=== PATIENT | male | born 1985 | race American Indian/Alaskan Native ===

== ENCOUNTER 2016-05-03 17:29 | Emergency (ER) | payer MEDICARE ==
[2016-05-03 17:33] VITALS: BMI 21.9
[2016-05-03 17:35] VITALS: BP 124/83; PULSE 94; RESP 18; TEMP 99.3; O2SAT 95
--- NOTE | 2016-05-03 19:00 | C.PDOC ---
History Of Present Illness 31 y/o male c/o 'having symptoms of a fever', and wants to know if he has a stomach bug. pt tolerated bread today, sts he had a bm today, not watery, and is queasy and last time he vomited was 2 days ago. pt also c/o cough, with sputum color getting edge inker heels over last few days. pt also c/o pain to right great toe, sts he injured it in the past, and stubbed it yesterday wearing karate slippers. pt reluctantly answering questions in history with vague answers. Time Seen by Provider: 05/03/16 18:02 Chief Complaint (Nursing): Cough, Cold, Congestion Past Medical History Reviewed: Historical Data, Nursing Documentation, Vital Signs Vital Signs: Last Vital Signs Temp 99.3 F 05/03/16 17:34 Pulse 94 H 05/03/16 17:34 Resp 18 05/03/16 17:34 BP 124/83 05/03/16 17:34 Pulse Ox 95 05/03/16 19:51 - Medical History PMH: Schizophrenia Denies: Diabetes, Hepatitis, HIV, HTN, Chronic Kidney Disease, Seizures, Sexually Transmitted Disease Surgical History: Appendectomy - [facility] Procedures GROUP PSYCHOTHERAPY (12/06/15) INDIVIDUAL PSYCHOTHERAPY, BEHAVIORAL (12/06/15) TETANUS TOXOID ADMINIST (09/18/14) Family History: States: Unknown Family Hx - Social History Hx Tobacco Use: Yes Hx Alcohol Use: Yes (social drinking) Hx Substance Use: Yes - Immunization History Hx Tetanus Toxoid Vaccination: No Hx Influenza Vaccination: No Hx Pneumococcal Vaccination: No Review Of Systems Constitutional: Positive for: Fever (tactile) ENT: Negative for: Ear Pain, Nose Pain, Throat Pain Cardiovascular: Negative for: Chest Pain, Palpitations Respiratory: Positive for: Cough. Negative for: Shortness of Breath Gastrointestinal: Positive for: Nausea. Negative for: Vomiting, Abdominal Pain Musculoskeletal: Negative for: Neck Pain Skin: Negative for: Rash Neurological: Negative for: Weakness, Numbness Physical Exam - Physical Exam Appears: Non-toxic, No Acute Distress Skin: Normal Color, Warm, Dry Head: Atraumatic, Normacephalic Eye(s): bilateral: Normal Inspection Neck: Normal ROM Chest: Symmetrical, No Deformity, No Tenderness Cardiovascular: Rhythm Regular, No Murmur Respiratory: Normal Breath Sounds, No Rales, No Rhonchi, No Wheezing Gastrointestinal/Abdominal: Normal Exam, Soft, No Tenderness, No Guarding, No Rebound Extremity: Normal ROM, Other (mild right great toe tenderness to palpation, no swelling, erythema noted. +2dp pulse) Neurological/Psych: Oriented x3, Normal Speech, Normal Cognition, Normal Motor, Normal Sensation ED Course And Treatment O2 Sat by Pulse Oximetry: 95 - Radiology CXR: Interpreted by Me, Viewed By Me CXR Interpretation: Yes: No Acute Disease. No: Infiltrates - Other Rad toe Interpretation: no acute fx Progress Note: pt feeling better after motrin and zofran, xrays neg. will d/c with pmd f/u Reevaluation Time: 19:48 Medical Decision Making Medical Decision Makin31 y/o male with queasiness, no vomiting for last 2 days, cough with yellowish sputum., and toe pain, will tx nausea. get cxr and toe xray, give ibuprofen. Disposition Counseled Patient/Family Regarding: Studies Performed, Diagnosis, Need For Followup, Rx Given - Disposition Disposition: HOME/ ROUTINE Disposition Time: 19:48 Condition: GOOD Additional Instructions: Follow up with Dr Toribio in 1-2 days. Eat bland food and take Zofran if queasy. Take ibuprofen for toe pain. Prescriptions: Ibuprofen [Motrin] 600 mg PO TID #30 tab Ondansetron ODT [Zofran ODT] 4 mg PO TID #6 odt Instructions: Upper Respiratory Infection (ED) Forms: General Discharge Instructions - Clinical Impression Clinical Impression: Upper respiratory infection, Injury of toe on right foot
--- NOTE | 2016-05-04 09:03 | RAD ---
HISTORY: cough COMPARISON: No prior. TECHNIQUE: Chest PA and lateral FINDINGS: LUNGS: No active pulmonary disease. PLEURA: No significant pleural effusion identified. No pneumothorax apparent. CARDIOVASCULAR: Normal. OSSEOUS STRUCTURES: No significant abnormalities. VISUALIZED UPPER ABDOMEN: Normal. OTHER FINDINGS: None. IMPRESSION: No active disease.
--- NOTE | 2016-05-04 09:06 | RAD ---
Right foot 1st digit three views History: Pain. Comparison: None available. Findings: Mild hallux valgus deformity. No evidence for acute displaced fracture or dislocation. No discrete radiopaque foreign body. Impression: Negative acute. If pain persists, consider MRI.
== END 2016-05-03 19:53 | disposition home or self-care (01) ==
LOC: C.ER 17:29
DX: J06.9 Acute upper respiratory infection, unspecified (principal); S99.921A Unspecified injury of right foot, initial encounter; W22.8XXA Striking against or struck by other objects, initial encounter

== ENCOUNTER 2016-06-24 01:55 | Emergency (ER) | payer MEDICARE ==
[2016-06-06 02:03] VITALS: BMI 21.9
--- NOTE | 2016-06-24 04:34 | C.PDOC ---
History Of Present Illness 31 y/o male c/o pain to lateral left ankle x 1 day s/p injury during a martial arts class. pt able to bear weight. denies any numbness or tingling. denies any other injury. Time Seen by Provider: 06/24/16 03:22 Chief Complaint (Nursing): Lower Extremity Problem/Injury History Per: Patient History/Exam Limitations: no limitations Onset/Duration Of Symptoms: Days (1) Current Symptoms Are (Timing): Still Present Severity: Moderate Recent travel outside of the [place]: No Past Medical History Reviewed: Historical Data, Nursing Documentation, Vital Signs Vital Signs: Last Vital Signs Temp 98 F 06/24/16 03:26 Pulse 89 06/24/16 03:26 Resp 16 06/24/16 03:26 BP 124/79 06/24/16 03:26 Pulse Ox 98 06/24/16 04:56 - Medical History PMH: Schizophrenia Denies: Diabetes, Hepatitis, HIV, HTN, Chronic Kidney Disease, Seizures, Sexually Transmitted Disease Surgical History: Appendectomy - [facility] Procedures GROUP PSYCHOTHERAPY (12/06/15) INDIVIDUAL PSYCHOTHERAPY, BEHAVIORAL (12/06/15) TETANUS TOXOID ADMINIST (09/18/14) Family History: States: Unknown Family Hx - Social History Hx Tobacco Use: Yes Hx Alcohol Use: Yes (social drinking) Hx Substance Use: Yes - Immunization History Hx Tetanus Toxoid Vaccination: No Hx Influenza Vaccination: No Hx Pneumococcal Vaccination: No Review Of Systems Constitutional: Negative for: Fever, Chills Musculoskeletal: Positive for: Other (ankle pain left) Skin: Negative for: Rash, Bruising Neurological: Negative for: Weakness, Numbness Physical Exam - Physical Exam Appears: Well, No Acute Distress Skin: Warm, Dry Head: Atraumatic, Normacephalic Extremity: Normal ROM, Tenderness (left lateral distal malleolus, no swelling), No Pedal Edema, No Calf Tenderness, Capillary Refill (less than 2 sec), No Swelling Extremity: Bilateral: No Pedal Edema, Normal Color And Temperature, Normal ROM Pulses: Left Dorsalis Pedis: Normal, Right Dorsalis Pedis: Normal Neurological/Psych: Oriented x3, Normal Speech, Normal Cognition, Normal Motor, Normal Sensation ED Course And Treatment O2 Sat by Pulse Oximetry: 98 Medical Decision Making Medical Decision Making: pt with left lateral ankle pain, will get xray ankle and tx pain with ibuprofen. 505 am no fx noted., pt ambulated with no limp. will wrap ankle with bella bandage and d/c Disposition Counseled Patient/Family Regarding: Studies Performed, Diagnosis, Need For Followup - Disposition Referrals: [facility] [Outside] Disposition: HOME/ ROUTINE Disposition Time: 05:06 Condition: GOOD Additional Instructions: Wear bella bandage for comfort during awake hours. Take ibuprofen or Tylenol for pain if needed. Follow up in clinic. Forms: General Discharge Instructions - Clinical Impression Clinical Impression: Left ankle sprain
--- NOTE | 2016-06-24 04:34 | C.PDOC ---
Time Seen by Provider: 06/24/16 03:22 Chief Complaint (Nursing): Lower Extremity Problem/Injury Past Medical History Vital Signs: Last Vital Signs Temp 98 F 06/24/16 03:26 Pulse 89 06/24/16 03:26 Resp 16 06/24/16 03:26 BP 124/79 06/24/16 03:26 Pulse Ox 98 06/24/16 03:26 - Medical History PMH: Schizophrenia Denies: Diabetes, Hepatitis, HIV, HTN, Chronic Kidney Disease, Seizures, Sexually Transmitted Disease Surgical History: Appendectomy - [facility] Procedures GROUP PSYCHOTHERAPY (12/06/15) INDIVIDUAL PSYCHOTHERAPY, BEHAVIORAL (12/06/15) TETANUS TOXOID ADMINIST (09/18/14) Family History: States: Unknown Family Hx - Social History Hx Tobacco Use: Yes Hx Alcohol Use: Yes (social drinking) Hx Substance Use: Yes - Immunization History Hx Tetanus Toxoid Vaccination: No Hx Influenza Vaccination: No Hx Pneumococcal Vaccination: No ED Course And Treatment O2 Sat by Pulse Oximetry: 98
[2016-06-24 04:39] VITALS: RESP 16
[2016-06-24 05:19] VITALS: BP 100/64; PULSE 59; TEMP 97.6; O2SAT 100
--- NOTE | 2016-06-24 09:43 | RAD ---
PROCEDURE: Left Ankle Radiographs. HISTORY: lateral malleolus pain COMPARISON: None FINDINGS: BONES: Normal. No fracture. JOINTS: Normal. No osteoarthritis. Ankle mortise maintained. Talar dome intact SOFT TISSUES: Normal. OTHER FINDINGS: None. IMPRESSION: Normal left ankle radiographs.
== END 2016-06-24 05:19 | disposition home or self-care (01) ==
LOC: C.ER 01:55
DX: S93.402A Sprain of unspecified ligament of left ankle, initial encounter (principal); X50.9XXA Other and unspecified overexertion or strenuous movements or postures, initial encounter; Y93.75 Activity, martial arts; Y92.89 Other specified places as the place of occurrence of the external cause

== ENCOUNTER 2016-07-06 03:30 | Emergency (ER) | payer MEDICARE ==
[2016-07-06 03:32] VITALS: BMI 21.9
--- NOTE | 2016-07-06 03:50 | C.PDOC ---
History Of Present Illness Pt is homeless and has been walking and feels tires and wants a place to rest. Non suicidal or homicidal. No f/c/n/v Time Seen by Provider: 07/06/16 03:50 Chief Complaint (Nursing): Medical Clearance History Per: Patient History/Exam Limitations: no limitations Onset/Duration Of Symptoms: Days Current Symptoms Are (Timing): Still Present Severity: Mild Pain Scale Rating Of: 1 Reports Recently: Seen In ED, Treated By A Physician, Hospitalized Recent travel outside of the [place]: No Additional History Per: Patient Past Medical History Reviewed: Historical Data, Nursing Documentation, Vital Signs Vital Signs: Last Vital Signs Temp 97.7 F 07/06/16 03:43 Pulse 83 07/06/16 03:43 Resp 16 07/06/16 03:43 BP 150/82 07/06/16 03:43 Pulse Ox 97 07/06/16 03:54 - Medical History PMH: Schizophrenia Denies: Diabetes, Hepatitis, HIV, HTN, Chronic Kidney Disease, Seizures, Sexually Transmitted Disease Surgical History: Appendectomy - [facility] Procedures GROUP PSYCHOTHERAPY (12/06/15) INDIVIDUAL PSYCHOTHERAPY, BEHAVIORAL (12/06/15) TETANUS TOXOID ADMINIST (09/18/14) Family History: States: No Known Family Hx - Social History Hx Tobacco Use: Yes Hx Alcohol Use: Yes (social drinking) Hx Substance Use: Yes - Immunization History Hx Tetanus Toxoid Vaccination: No Hx Influenza Vaccination: No Hx Pneumococcal Vaccination: No Review Of Systems Constitutional: Negative for: Fever, Chills Cardiovascular: Negative for: Chest Pain Respiratory: Negative for: Shortness of Breath Gastrointestinal: Negative for: Nausea Genitourinary: Negative for: Dysuria Musculoskeletal: Negative for: Back Pain Skin: Negative for: Jaundice Neurological: Negative for: Weakness Psych: Positive for: Anxiety Physical Exam - Physical Exam Appears: Non-toxic, No Acute Distress Skin: Warm, Dry Head: Normacephalic Eye(s): bilateral: Normal Inspection Oral Mucosa: Moist Neck: Supple Chest: Symmetrical Cardiovascular: Rhythm Regular Respiratory: No Rales, No Rhonchi, No Wheezing Gastrointestinal/Abdominal: Soft, No Tenderness Back: Normal Inspection Extremity: Normal ROM Extremity: Bilateral: No Pedal Edema Neurological/Psych: Oriented x3, Normal Speech, Normal Cognition Gait: Steady ED Course And Treatment O2 Sat by Pulse Oximetry: 97 Pulse Ox Interpretation: Normal ED OBSERVATION Discharge: Yes Date of observation admission: 07/06/16 Time of observation admission: 03:54 - Observation admission statement Patient is being placed in observation because:: homeless - Goals of Observation Goals of observation are:: social service Disposition Counseled Patient/Family Regarding: Studies Performed, Diagnosis - Disposition Disposition: HOME/ ROUTINE Disposition Time: 03:50 Condition: FAIR Instructions: Arthralgia (ED) - Clinical Impression Clinical Impression: Medical assessment
[2016-07-06 06:42] VITALS: BP 149/95; PULSE 82; RESP 18; TEMP 98.5; O2SAT 99
== END 2016-07-06 06:42 | disposition home or self-care (01) ==
LOC: C.ER 03:30
DX: Z00.00 Encounter for general adult medical examination without abnormal findings (principal); Z59.0 Homelessness

== ENCOUNTER 2016-07-30 23:21 | Emergency (ER) | payer MEDICARE ==
[2016-07-30 23:22] VITALS: BMI 21.9
--- NOTE | 2016-07-31 02:34 | C.PDOC ---
History Of Present Illness 31 y/o male with PMHx of schizophrenia presents to ED with complaint of fatigue and "feeling tired, after trekking all over". Patient admits to being homeless. Denies auditory or visual hallucinations. Denies SI/HI. Denies presence of pain. Time Seen by Provider: 07/31/16 01:05 Chief Complaint (Nursing): Medical Clearance History Per: Patient History/Exam Limitations: no limitations Severity: None Pain Scale Rating Of: 0 Recent travel outside of the [place]: No Past Medical History Reviewed: Historical Data, Nursing Documentation, Vital Signs Vital Signs: Last Vital Signs Temp 97.6 F 07/31/16 03:47 Pulse 58 L 07/31/16 03:47 Resp 14 07/31/16 03:47 BP 100/65 07/31/16 03:47 Pulse Ox 100 07/31/16 03:47 - Medical History PMH: Schizophrenia Surgical History: Appendectomy - [facility] Procedures GROUP PSYCHOTHERAPY (12/06/15) INDIVIDUAL PSYCHOTHERAPY, BEHAVIORAL (12/06/15) TETANUS TOXOID ADMINIST (09/18/14) Family History: States: Unknown Family Hx - Social History Hx Tobacco Use: Yes Hx Alcohol Use: Yes (social drinking) Hx Substance Use: Yes - Immunization History Hx Tetanus Toxoid Vaccination: No Hx Influenza Vaccination: No Hx Pneumococcal Vaccination: No Review Of Systems Except As Marked, All Systems Reviewed And Found Negative. Constitutional: Negative for: Fever, Chills Cardiovascular: Negative for: Chest Pain Respiratory: Negative for: Cough, Shortness of Breath, Wheezing Gastrointestinal: Negative for: Nausea, Vomiting, Abdominal Pain Skin: Negative for: Rash Neurological: Negative for: Headache, Dizziness Physical Exam - Physical Exam Appears: Well, Non-toxic, No Acute Distress Skin: Normal Color, Warm, Dry Head: Atraumatic, Normacephalic Eye(s): bilateral: Normal Inspection, EOMI Nose: Normal Chest: Symmetrical Cardiovascular: Rhythm Regular, No Murmur Respiratory: Normal Breath Sounds, No Rales, No Rhonchi, No Wheezing Gastrointestinal/Abdominal: Soft, No Tenderness, No Guarding, No Rebound Back: Normal Inspection Extremity: Normal ROM, Capillary Refill (< 2 sec. ) Neurological/Psych: Oriented x3, Normal Speech, Normal Cognition ED Course And Treatment O2 Sat by Pulse Oximetry: 99 (RA) Pulse Ox Interpretation: Normal Progress Note: Labs ordered and reviewed. ED OBSERVATION Date of observation admission: 07/31/16 Time of observation admission: 02:34 - Progress Note Progress Note: 07/31/16 02:36 patient resting comfortably, in no acute distress Disposition - Disposition Disposition: HOME/ ROUTINE Disposition Time: 05:59 Condition: STABLE Instructions: Fatigue (ED) - Clinical Impression Clinical Impression: Fatigue - PA / FIBER WORKER / Resident Statement MD/DO has reviewed & agrees with the documentation as recorded. - Scribe Statement The provider has reviewed the documentation as recorded by the Scribsylvester Ulloa All medical record entries made by the Lexi were at my direction and personally dictated by me. I have reviewed the chart and agree that the record accurately reflects my personal performance of the history, physical exam, medical decision making, and the department course for this patient. I have also personally directed, reviewed, and agree with the discharge instructions and disposition.
[2016-07-31 03:47] VITALS: TEMP 97.6
[2016-07-31 06:05] VITALS: BP 110/72; PULSE 60; RESP 16; O2SAT 100
== END 2016-07-31 06:18 | disposition home or self-care (01) ==
LOC: C.ER 23:21
DX: R53.83 Other fatigue (principal); Z59.0 Homelessness

== ENCOUNTER 2016-08-12 22:46 | Observation (INO) | payer MEDICARE ==
[2016-08-12 22:46] VITALS: BMI 21.9
--- NOTE | 2016-08-13 00:03 | C.PDOC ---
History Of Present Illness Patient presents to the ER looking for a place to spend the night. Denies any physical complaints at this time. Time Seen by Provider: 08/13/16 00:03 Chief Complaint (Nursing): Headache History Per: Patient History/Exam Limitations: no limitations Onset/Duration Of Symptoms: Hrs Current Symptoms Are (Timing): Still Present Severity: None Pain Scale Rating Of: 0 Preceeding Symptoms: None Recent travel outside of the [place]: No Past Medical History Reviewed: Historical Data, Nursing Documentation, Vital Signs Vital Signs: Last Vital Signs Temp 97.7 F 08/13/16 02:14 Pulse 66 08/13/16 02:14 Resp 14 08/13/16 02:14 BP 114/76 08/13/16 02:14 Pulse Ox 99 08/13/16 02:14 - Medical History PMH: Schizophrenia Denies: Sexually Transmitted Disease Surgical History: Appendectomy - [facility] Procedures GROUP PSYCHOTHERAPY (12/06/15) INDIVIDUAL PSYCHOTHERAPY, BEHAVIORAL (12/06/15) TETANUS TOXOID ADMINIST (09/18/14) Family History: States: No Known Family Hx - Social History Hx Tobacco Use: Yes Hx Alcohol Use: Yes (social drinking) Hx Substance Use: Yes - Immunization History Hx Tetanus Toxoid Vaccination: No Hx Influenza Vaccination: No Hx Pneumococcal Vaccination: No Review Of Systems Constitutional: Negative for: Fever, Chills Gastrointestinal: Negative for: Nausea, Vomiting, Diarrhea Physical Exam - Physical Exam Appears: Non-toxic Skin: Warm, Dry Oral Mucosa: Moist Chest: Symmetrical, No Tenderness Cardiovascular: Rhythm Regular, No Murmur Respiratory: No Rales, No Rhonchi, No Wheezing Gastrointestinal/Abdominal: Soft, No Tenderness Neurological/Psych: Oriented x3 ED Course And Treatment O2 Sat by Pulse Oximetry: 100 (Room air) Pulse Ox Interpretation: Normal ED OBSERVATION Discharge: Yes Date of observation admission: 08/13/16 Time of observation admission: 00:05 - Observation admission statement Patient is being placed in observation because:: Homelessness - Goals of Observation Goals of observation are:: Social service - Progress Note Progress Note: 08/13/16 00:16 no complaints 08/13/16 04:16 vitals stable Disposition Counseled Patient/Family Regarding: Studies Performed, Diagnosis - Disposition Disposition: HOME/ ROUTINE Disposition Time: 00:03 Condition: FAIR - Clinical Impression Clinical Impression: Feeling tired - Scribe Statement The provider has reviewed the documentation as recorded by the Scribe Jonathan Lopez All medical record entries made by the Scribe were at my direction and personally dictated by me. I have reviewed the chart and agree that the record accurately reflects my personal performance of the history, physical exam, medical decision making, and the department course for this patient. I have also personally directed, reviewed, and agree with the discharge instructions and disposition.
[2016-08-13 05:18] VITALS: O2SAT 100
[2016-08-13 05:19] VITALS: BP 123/79; PULSE 71; RESP 16; TEMP 98.2
== END 2016-08-13 05:18 | disposition home or self-care (01) ==
LOC: C.ER 22:46 → C.9OBSV 08-13 00:09
PROVIDERS: ADMIT Emergency Medicine; ATTEND Emergency Medicine
DX: R51 Headache (principal); F20.9 Schizophrenia, unspecified; Z87.891 Personal history of nicotine dependence; Z68.21 Body mass index [BMI] 21.0-21.9, adult

== ENCOUNTER 2016-09-15 00:03 | Emergency (ER) | payer MEDICARE ==
[2016-09-15 00:03] VITALS: BMI 21.9
[2016-09-15 00:13] VITALS: O2SAT 98
--- NOTE | 2016-09-15 00:37 | C.PDOC ---
History Of Present Illness Patient presents to the ER requesting a place to spend the night. Denies physical complaints at this time. Time Seen by Provider: 09/15/16 00:35 Chief Complaint (Nursing): Medical Clearance History Per: Patient History/Exam Limitations: no limitations Onset/Duration Of Symptoms: Hrs Current Symptoms Are (Timing): Still Present Severity: None Pain Scale Rating Of: 0 Recent travel outside of the [place]: No Past Medical History Reviewed: Historical Data, Nursing Documentation, Vital Signs Vital Signs: Last Vital Signs Temp 98 F 09/15/16 05:35 Pulse 72 09/15/16 05:35 Resp 16 09/15/16 05:35 BP 150/82 09/15/16 05:35 Pulse Ox 98 09/15/16 06:53 - Medical History PMH: Schizophrenia Surgical History: Appendectomy - [facility] Procedures GROUP PSYCHOTHERAPY (12/06/15) INDIVIDUAL PSYCHOTHERAPY, BEHAVIORAL (12/06/15) TETANUS TOXOID ADMINIST (09/18/14) Family History: States: No Known Family Hx - Social History Hx Tobacco Use: Yes Hx Alcohol Use: Yes (social drinking) Hx Substance Use: Yes - Immunization History Hx Tetanus Toxoid Vaccination: No Hx Influenza Vaccination: No Hx Pneumococcal Vaccination: No Review Of Systems Constitutional: Negative for: Fever, Chills Gastrointestinal: Negative for: Nausea, Vomiting, Diarrhea Physical Exam - Physical Exam Appears: Non-toxic, No Acute Distress Skin: Warm, Dry Oral Mucosa: Moist Chest: Symmetrical, No Tenderness Cardiovascular: Rhythm Regular Respiratory: No Rales, No Rhonchi, No Wheezing Gastrointestinal/Abdominal: Soft, No Tenderness Neurological/Psych: Oriented x3 ED Course And Treatment O2 Sat by Pulse Oximetry: 98 Pulse Ox Interpretation: Normal Reevaluation Time: 06:53 Reassessment Condition: Improved ED OBSERVATION Discharge: Yes Date of observation admission: 09/15/16 Time of observation admission: 00:37 - Observation admission statement Patient is being placed in observation because:: homeless - Progress Note Progress Note: 09/15/16 00:37 vitals stable 09/15/16 03:52 no complaints Disposition Counseled Patient/Family Regarding: Studies Performed, Diagnosis, Need For Followup - Disposition Referrals: at [facility] [Outside] Disposition: HOME/ ROUTINE Disposition Time: 00:36 Condition: FAIR Instructions: Fatigue (DC) Forms: [employer] (Divehi) - Clinical Impression Clinical Impression: Fatigue - Scribe Statement The provider has reviewed the documentation as recorded by the Scribe Jonathan Lopez All medical record entries made by the Scribe were at my direction and personally dictated by me. I have reviewed the chart and agree that the record accurately reflects my personal performance of the history, physical exam, medical decision making, and the department course for this patient. I have also personally directed, reviewed, and agree with the discharge instructions and disposition.
[2016-09-15 05:43] VITALS: BP 150/82; PULSE 72; RESP 16; TEMP 98
== END 2016-09-15 05:35 | disposition home or self-care (01) ==
LOC: C.ER 00:03
DX: R53.83 Other fatigue (principal)

== ENCOUNTER 2016-10-09 00:42 | Emergency (ER) | payer MEDICAID, MEDICARE, OTHER ==
[2016-10-09 00:42] VITALS: BMI 21.9
[2016-10-09 00:50] VITALS: O2SAT 97
--- NOTE | 2016-10-09 01:51 | C.PDOC ---
History Of Present Illness 31 year old male who presents to the ER requesting a place to sleep. Patient is known to be homeless and has been seen in the ER multiple times for the same reason. No injuries noted at this time. Time Seen by Provider: 10/09/16 01:33 Chief Complaint (Nursing): Medical Clearance History Per: Patient History/Exam Limitations: no limitations Onset/Duration Of Symptoms: Days Current Symptoms Are (Timing): Still Present Recent travel outside of the [place]: No Past Medical History Reviewed: Historical Data, Nursing Documentation, Vital Signs Vital Signs: Last Vital Signs Temp 98.1 F 10/09/16 02:36 Pulse 82 10/09/16 02:36 Resp 16 10/09/16 02:36 BP 112/70 10/09/16 02:36 Pulse Ox 97 10/09/16 04:34 - Medical History PMH: Schizophrenia Surgical History: Appendectomy (2014) - [facility] Procedures GROUP PSYCHOTHERAPY (12/06/15) INDIVIDUAL PSYCHOTHERAPY, BEHAVIORAL (12/06/15) TETANUS TOXOID ADMINIST (09/18/14) Family History: States: Unknown Family Hx - Social History Hx Tobacco Use: Yes Hx Alcohol Use: Yes (social drinking) Hx Substance Use: Yes (rare) - Immunization History Hx Tetanus Toxoid Vaccination: No Hx Influenza Vaccination: No Hx Pneumococcal Vaccination: No Review Of Systems Constitutional: Negative for: Fever, Chills Gastrointestinal: Negative for: Nausea, Vomiting, Diarrhea Physical Exam - Physical Exam Appears: Non-toxic, No Acute Distress Skin: Normal Color, Warm, Dry Head: Atraumatic, Normacephalic Extremity: Normal ROM (x4) Neurological/Psych: Oriented x3, Normal Speech, Normal Cognition Gait: Steady ED Course And Treatment O2 Sat by Pulse Oximetry: 97 (Room air) Pulse Ox Interpretation: Normal Progress Note: Patient is being verbally abusive; when asked to sit up for an examination he responded "stop being annoying, you're bothering me" several times and turned away from me. Patient's vital signs are currently stable and he is ambulatory with steady gait, pt is stable for discharge . Disposition Counseled Patient/Family Regarding: Diagnosis, Need For Followup - Disposition Disposition: HOME/ ROUTINE Disposition Time: 01:50 Condition: STABLE Instructions: Normal Exam (ED) - Clinical Impression Clinical Impression: Medical assessment - Scribe Statement The provider has reviewed the documentation as recorded by the Scribe Jonathan Lopez All medical record entries made by the Mehrdadibsylvester were at my direction and personally dictated by me. I have reviewed the chart and agree that the record accurately reflects my personal performance of the history, physical exam, medical decision making, and the department course for this patient. I have also personally directed, reviewed, and agree with the discharge instructions and disposition.
[2016-10-09 02:36] VITALS: BP 112/70; PULSE 82; RESP 16; TEMP 98.1
== END 2016-10-09 02:36 | disposition home or self-care (01) ==
LOC: C.ER 00:42
DX: Z04.8 Encounter for examination and observation for other specified reasons (principal)

== ENCOUNTER 2016-10-28 05:00 | Emergency (ER) | payer MEDICARE ==
[2016-10-28 05:00] VITALS: BMI 21.9
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
[2016-10-28] MEDS ORDERED: Bacitracin 500 Units/gm Oint Foilpak UD ONE (06:15)
[2016-10-28] MEDS ORDERED: Phenylephrine 1% Nasal Spray (15 ml) ONE (06:18)
[2016-10-28] MEDS ORDERED: Phenylephrine 1% Nasal Spray (15 ml) NAS STA (06:27)
[2016-10-28 06:40] VITALS: RESP 16; O2SAT 100
[2016-10-28 07:02] VITALS: BP 116/74; PULSE 84; TEMP 98
== END 2016-10-28 07:02 | disposition home or self-care (01) ==
LOC: SUPCPDRO 05:00 → C.ER 05:00
DX: S02.2XXA Fracture of nasal bones, initial encounter for closed fracture (principal); W50.0XXA Accidental hit or strike by another person, initial encounter; R04.0 Epistaxis

== ENCOUNTER 2016-11-19 02:52 | Emergency (ER) | payer MEDICARE ==
[2016-11-19 02:52] VITALS: BMI 21.9
--- NOTE | 2016-11-19 03:20 | C.PDOC ---
History Of Present Illness Patient is a 31 y/o male who presents to the ED with left knee pain for the last few hours. Patient admits to twisting it while walking but denies any fall or direct trauma. Denies any change in sensation. No other physical complaints at this time Time Seen by Provider: 11/19/16 03:01 Chief Complaint (Nursing): Lower Extremity Problem/Injury History Per: Patient History/Exam Limitations: no limitations Onset/Duration Of Symptoms: Hrs (symptoms began a few hours ago ) Current Symptoms Are (Timing): Still Present Recent travel outside of the [place]: No Additional History Per: Patient - Knee Description Of Injury: Twisted. denies: Fell Past Medical History Reviewed: Historical Data, Nursing Documentation, Vital Signs Vital Signs: Last Vital Signs Temp 97.8 F 11/19/16 04:32 Pulse 72 11/19/16 04:32 Resp 16 11/19/16 04:32 BP 120/80 11/19/16 04:32 Pulse Ox 100 11/19/16 04:32 - Medical History PMH: Schizophrenia Denies: Diabetes, Hepatitis, HIV, HTN, Chronic Kidney Disease, Seizures, Sexually Transmitted Disease Surgical History: Appendectomy (2014) - [employer] Procedures GROUP PSYCHOTHERAPY (12/06/15) INDIVIDUAL PSYCHOTHERAPY, BEHAVIORAL (12/06/15) TETANUS TOXOID ADMINIST (09/18/14) Family History: States: Unknown Family Hx - Social History Hx Tobacco Use: Yes Hx Alcohol Use: Yes (social drinking) Hx Substance Use: Yes (rare) - Immunization History Hx Tetanus Toxoid Vaccination: No Hx Influenza Vaccination: No Hx Pneumococcal Vaccination: No Review Of Systems Constitutional: Negative for: Fever, Chills Musculoskeletal: Positive for: Leg Pain (left knee pain ) Neurological: Negative for: Numbness Physical Exam - Physical Exam Appears: Well, Non-toxic, No Acute Distress Skin: Normal Color, Warm, Dry Head: Atraumatic, Normacephalic Eye(s): bilateral: Normal Inspection, EOMI Nose: Normal Oral Mucosa: Moist Chest: Symmetrical Respiratory: No Accessory Muscle Use Extremity: Normal ROM (x4), Tenderness (left knee tenderness medially ), No Calf Tenderness, No Swelling Extremity: Bilateral: Normal Color And Temperature Pulses: Left Dorsalis Pedis: Normal, Right Dorsalis Pedis: Normal Neurological/Psych: Oriented x3, Normal Speech, Normal Motor, Normal Sensation Gait: Steady ED Course And Treatment O2 Sat by Pulse Oximetry: 98 (room air) Pulse Ox Interpretation: Normal Progress Note: Plan: Presley wrap applied to affected area. Offered XR , pt refused. Discussed elevated blood pressure and risks of untreated BP. Instructed to recheck in 1-2 days. Disposition - Disposition Referrals: Tanner Patricia MD [Staff Provider] - Disposition: HOME/ ROUTINE Disposition Time: 03:18 Condition: STABLE Additional Instructions: Follow up with your primary medical doctor or clinic in 2-5 days for further evaluation. Return to the emergency department at any time if symptoms persist or worsen. Instructions: Knee Sprain (ED) Forms: [employer] (Tanzanian) - Clinical Impression Clinical Impression: Knee sprain - Scribe Statement The provider has reviewed the documentation as recorded by the Scribe Suni Jaeger All medical record entries made by the Scribe were at my direction and personally dictated by me. I have reviewed the chart and agree that the record accurately reflects my personal performance of the history, physical exam, medical decision making, and the department course for this patient. I have also personally directed, reviewed, and agree with the discharge instructions and disposition.
[2016-11-19 04:33] VITALS: BP 120/80; PULSE 72; RESP 16; TEMP 97.8
[2016-11-19 05:48] VITALS: O2SAT 98
== END 2016-11-19 05:24 | disposition home or self-care (01) ==
LOC: C.ER 02:52
DX: S83.92XA Sprain of unspecified site of left knee, initial encounter (principal); X50.9XXA Other and unspecified overexertion or strenuous movements or postures, initial encounter; Y93.01 Activity, walking, marching and hiking

== ENCOUNTER 2016-12-20 02:48 | Emergency (ER) | payer MEDICARE ==
[2016-12-20 02:48] VITALS: BMI 21.9
--- NOTE | 2016-12-20 03:06 | C.PDOC ---
History Of Present Illness pt with history of schizophrenia, presents with hearing voices, They are garbled , so he cannot discern what they are telling him. denies any suicidal or homicidal ideation Time Seen by Provider: 12/20/16 03:06 Chief Complaint (Nursing): Psychiatric Evaluation History Per: Patient History/Exam Limitations: no limitations Onset/Duration Of Symptoms: Days Current Symptoms Are (Timing): Still Present Suicide/Self Injury Attempted (Context): None Modifying Factor(s): None Severity: None Associated Symptoms: Depression Involuntary Hold By: None Recent travel outside of the [place]: No Additional History Per: Patient Past Medical History Reviewed: Historical Data, Nursing Documentation, Vital Signs Vital Signs: Last Vital Signs Temp 98.3 F 12/20/16 05:20 Pulse 85 12/20/16 05:20 Resp 16 12/20/16 05:20 BP 113/68 12/20/16 05:20 Pulse Ox 100 12/20/16 05:20 - Medical History PMH: Schizophrenia Denies: Diabetes, Hepatitis, HIV, HTN, Chronic Kidney Disease, Seizures, Sexually Transmitted Disease Surgical History: Appendectomy (2014) - [facility] Procedures GROUP PSYCHOTHERAPY (12/06/15) INDIVIDUAL PSYCHOTHERAPY, BEHAVIORAL (12/06/15) TETANUS TOXOID ADMINIST (09/18/14) Family History: States: No Known Family Hx - Social History Hx Tobacco Use: Yes Hx Alcohol Use: Yes (social drinking) Hx Substance Use: Yes (rare) - Immunization History Hx Tetanus Toxoid Vaccination: No Hx Influenza Vaccination: No Hx Pneumococcal Vaccination: No Review Of Systems Constitutional: Negative for: Fever, Chills Eyes: Negative for: Redness ENT: Negative for: Throat Pain Cardiovascular: Negative for: Chest Pain Respiratory: Negative for: Shortness of Breath Gastrointestinal: Negative for: Nausea Genitourinary: Negative for: Dysuria Musculoskeletal: Negative for: Back Pain Skin: Negative for: Rash Neurological: Negative for: Weakness Psych: Positive for: Depression Physical Exam - Physical Exam Appears: Non-toxic, No Acute Distress Skin: Warm, Dry Head: Normacephalic Eye(s): bilateral: Normal Inspection Oral Mucosa: Moist Neck: Supple Chest: Symmetrical Cardiovascular: Rhythm Regular Respiratory: No Rales, No Rhonchi, No Wheezing Gastrointestinal/Abdominal: Soft, No Tenderness Back: No CVA Tenderness Extremity: Bilateral: Atraumatic Neurological/Psych: Oriented x3, Normal Speech, Normal Cognition Gait: Steady ED Course And Treatment - Laboratory Results Result Diagrams: 12/20/16 03:41 12/20/16 03:41 O2 Sat by Pulse Oximetry: 96 Pulse Ox Interpretation: Normal Progress Note: pt cleared for discharge by dr Oakes Reevaluation Time: 05:28 Reassessment Condition: Improved Disposition Counseled Patient/Family Regarding: Studies Performed, Diagnosis, Need For Followup - Disposition Referrals: [facility] [Outside] Disposition: HOME/ ROUTINE Disposition Time: 03:06 Condition: FAIR Instructions: Schizophrenia (ED) Forms: [facility] [employer] (Greek) - Clinical Impression Clinical Impression: Schizophrenia
[2016-12-20 03:44] LABS: BASO % 0.5 % (0.0-2.0); EOS # 0.1 K/uL (0.0-0.7); EOS % 1.7 % (0.0-4.0); HEMATOCRIT 39.2 % (35.0-51.0); LYMPH # 1.8 K/uL (1.0-4.3); LYMPH % 34.9 % (20.0-40.0); MEAN CELL VOLUME 81.9 fL (80.0-94.0); MEAN CORPUSCULAR HEMOGLOBIN 26.6 pg (27.0-31.0); MEAN CORPUSCULAR HGB CONC 32.5 g/dL (33.0-37.0); MEAN PLATELET VOLUME 8.5 fL (7.2-11.7); MONO # 0.3 K/uL (0.0-0.8); MONO % 5.1 % (0.0-10.0); NRBC % 0.1 % (0.0-2.0); WHITE BLOOD COUNT 5.3 K/uL (4.8-10.8)
[2016-12-20 03:57] LABS: CHLORIDE 103 mmol/L (98-107)
[2016-12-20 03:58] LABS: POTASSIUM 3.5 mmol/L (3.6-5.2); SODIUM 136 mmol/L (132-148)
[2016-12-20 04:00] LABS: ALB/GLOB RATIO 1.1 (1.0-2.1); ALKALINE PHOSPHATASE 50 U/L (38-126); ALT/SGPT 46 U/L (21-72); AST/SGOT 36 U/L (17-59); BILIRUBIN,TOTAL 0.8 mg/dL (0.2-1.3); BLOOD UREA NITROGEN 15 mg/dL (9-20); CARBON DIOXIDE 25 mmol/L (22-30); GFR AFRICAN-AMERICAN > 60; GLUCOSE,RANDOM 89 mg/dL (75-110); TOTAL PROTEIN 7.5 g/dL (6.3-8.3)
[2016-12-20 04:01] LABS: ALCOHOL SERUM < 10 mg/dl (0-10); CALCIUM 8.9 mg/dl (8.6-10.4)
[2016-12-20 04:29] LABS: RBC URINE < 1 /hpf (0-3); URINE BILIRUBIN NEGATIVE (NEGATIVE); URINE BLOOD NEGATIVE (NEGATIVE); URINE COLOR Yellow (YELLOW); URINE GLUCOSE (UA) NORMAL (Normal); URINE KETONE NEGATIVE (NEGATIVE); URINE LEUKOCYTE ESTERASE NEG Leu/uL (Negative); URINE PROTEIN NEGATIVE (NEGATIVE); URINE UROBILINOGEN NORMAL mg/dL (0.2-1.0); WBC URINE 1 /hpf (0-5)
[2016-12-20 05:21] VITALS: BP 113/68; PULSE 85; RESP 16; TEMP 98.3
[2016-12-20 05:29] VITALS: O2SAT 96
== END 2016-12-20 05:35 | disposition home or self-care (01) ==
LOC: C.ER 02:48
DX: F20.9 Schizophrenia, unspecified (principal)
CPT/HCPCS: 80053; 81001; 85025; 99284; G0480

== ENCOUNTER 2017-05-10 01:15 | Emergency (ER) | payer MEDICARE ==
[2017-05-10 01:16] VITALS: BMI 21.9
--- NOTE | 2017-05-10 01:56 | C.PDOC ---
History Of Present Illness 32 y/o M c no PMHx p/w chest congestion x 1 week. Denies fever or dyspnea, is requesting CXR. He also states he is homeless at the moment and is requesting to sleep in ED until morning. Time Seen by Provider: 05/10/17 01:45 Chief Complaint (Nursing): Cough, Cold, Congestion Past Medical History Vital Signs: Last Vital Signs Temp 97.8 F 05/10/17 01:27 Pulse 93 H 05/10/17 01:27 Resp 16 05/10/17 01:27 BP 138/88 05/10/17 01:27 Pulse Ox 98 05/10/17 01:27 - Medical History PMH: Schizophrenia Denies: Diabetes, Hepatitis, HIV, HTN, Chronic Kidney Disease, Seizures, Sexually Transmitted Disease Surgical History: Appendectomy (2014) - [employer] Procedures GROUP PSYCHOTHERAPY (12/06/15) INDIVIDUAL PSYCHOTHERAPY, BEHAVIORAL (12/06/15) TETANUS TOXOID ADMINIST (09/18/14) Family History: States: Unknown Family Hx - Social History Hx Tobacco Use: Yes Hx Alcohol Use: Yes (social drinking) Hx Substance Use: Yes (rare) - Immunization History Hx Tetanus Toxoid Vaccination: No Hx Influenza Vaccination: No Hx Pneumococcal Vaccination: No Review Of Systems Except As Marked, All Systems Reviewed And Found Negative. Constitutional: Negative for: Fever Respiratory: Negative for: Shortness of Breath Physical Exam - Physical Exam Additional Physical Exam Comments: Gen: NAD Head: NC Eyes: No scleral icterus CV; Regular rate Lungs: No accessory muscle use Neuro: Alert ED Course And Treatment O2 Sat by Pulse Oximetry: 98 Medical Decision Making Medical Decision Making: CXR no acute disease. Disposition - Disposition Disposition: HOME/ ROUTINE Disposition Time: 01:55 Condition: STABLE Instructions: Cough, Runny Nose, and the Common Cold (DC) - Clinical Impression Clinical Impression: Chest congestion
[2017-05-10 05:48] VITALS: BP 134/85; PULSE 72; RESP 20; TEMP 98; O2SAT 97
== END 2017-05-10 06:17 | disposition home or self-care (01) ==
LOC: C.ER 01:15
DX: R09.89 Other specified symptoms and signs involving the circulatory and respiratory systems (principal)

== ENCOUNTER 2017-05-17 23:24 | Emergency (ER) | payer MEDICAID, MEDICARE, OTHER ==
[2017-05-17 23:24] VITALS: BMI 21.9
[2017-05-17 23:43] VITALS: TEMP 97.8
--- NOTE | 2017-05-18 00:47 | C.PDOC ---
History Of Present Illness 32 year old homeless male presents to the ED requesting a place to stay the night. No acute complaints offered. Denies recent alcohol or drug abuse. Time Seen by Provider: 05/18/17 00:33 Chief Complaint (Nursing): Medical Clearance History Per: Patient History/Exam Limitations: no limitations Onset/Duration Of Symptoms: Days Current Symptoms Are (Timing): Still Present Severity: None Pain Scale Rating Of: 0 Recent travel outside of the [place]: No Past Medical History Reviewed: Historical Data, Nursing Documentation, Vital Signs Vital Signs: Last Vital Signs Temp 97.8 F 05/17/17 23:40 Pulse 92 H 05/18/17 04:32 Resp 16 05/18/17 04:32 BP 136/79 05/18/17 04:32 Pulse Ox 97 05/18/17 04:32 - Medical History PMH: Schizophrenia Denies: Diabetes, Hepatitis, HIV, HTN, Chronic Kidney Disease, Seizures, Sexually Transmitted Disease Surgical History: Appendectomy (2014) - [facility] Procedures GROUP PSYCHOTHERAPY (12/06/15) INDIVIDUAL PSYCHOTHERAPY, BEHAVIORAL (12/06/15) TETANUS TOXOID ADMINIST (09/18/14) Family History: States: Unknown Family Hx - Social History Hx Tobacco Use: Yes Hx Alcohol Use: Yes (social drinking) Hx Substance Use: No (rare) - Immunization History Hx Tetanus Toxoid Vaccination: No Hx Influenza Vaccination: No Hx Pneumococcal Vaccination: No Review Of Systems Constitutional: Negative for: Fever Respiratory: Negative for: Shortness of Breath Psych: Negative for: Suicidal ideation Physical Exam - Physical Exam Appears: Non-toxic, No Acute Distress Skin: Warm, Dry Head: Normacephalic Eye(s): bilateral: Normal Inspection Oral Mucosa: Moist Neck: Trachea Midline, Supple Chest: Symmetrical Cardiovascular: Rhythm Regular Respiratory: No Rales, No Rhonchi, No Wheezing Gastrointestinal/Abdominal: Soft, No Tenderness, No Distention Extremity: Bilateral: Atraumatic, Normal ROM Pulses: Left Dorsalis Pedis: Normal, Right Dorsalis Pedis: Normal Neurological/Psych: Oriented x3 Gait: Steady ED Course And Treatment O2 Sat by Pulse Oximetry: 99 (RA) Pulse Ox Interpretation: Normal Progress Note: Patient resting comfortably, with no acute complaints. Normal speech. Ambulating with steady gait. Stable for discharge home Reevaluation Time: 04:47 Reassessment Condition: Improved Disposition Counseled Patient/Family Regarding: Studies Performed, Diagnosis, Need For Followup - Disposition Referrals: [facility] [Outside] Disposition: HOME/ ROUTINE Disposition Time: 04:47 Condition: FAIR Forms: [facility] (Greenlandic), General Discharge Instructions - Clinical Impression Clinical Impression: Malaise and fatigue - Scribe Statement The provider has reviewed the documentation as recorded by the Lxei Wright Provider Attestation: All medical record entries made by the Lexi were at my direction and personally dictated by me. I have reviewed the chart and agree that the record accurately reflects my personal performance of the history, physical exam, medical decision making, and the department course for this patient. I have also personally directed, reviewed, and agree with the discharge instructions and disposition.
[2017-05-18 04:33] VITALS: BP 136/79; PULSE 92; RESP 16
[2017-05-18 04:48] VITALS: O2SAT 99
== END 2017-05-18 04:55 | disposition home or self-care (01) ==
LOC: C.ER 23:24
DX: R53.81 Other malaise (principal); R53.83 Other fatigue

== ENCOUNTER 2017-05-22 04:08 | Emergency (ER) | payer MEDICARE ==
[2017-05-22 04:09] VITALS: BMI 21.9
--- NOTE | 2017-05-22 04:22 | C.PDOC ---
History Of Present Illness Pt states that he has been having some chest discomfort and palpitations for about 3 days. Denies any chest pain now. No f/c/n/v. Time Seen by Provider: 05/22/17 04:22 Chief Complaint (Nursing): Chest Pain History Per: Patient History/Exam Limitations: no limitations Onset/Duration Of Symptoms: Days (3) Current Symptoms Are (Timing): Gone Context: Other Severity: None Quality: Dull Associated Symptoms: denies: Nausea, Dyspnea Modifying Factors: None Exacerbating Factors: None Alleviating Factors: None Recent travel outside of the [place]: No Additional History Per: Patient Past Medical History Reviewed: Historical Data, Nursing Documentation, Vital Signs Vital Signs: Last Vital Signs Temp 97.8 F 05/22/17 04:18 Pulse 80 05/22/17 04:18 Resp 14 05/22/17 04:18 BP 119/80 05/22/17 04:18 Pulse Ox 96 05/22/17 05:25 - Medical History PMH: Schizophrenia Denies: Diabetes, Hepatitis, HIV, HTN, Chronic Kidney Disease, Seizures, Sexually Transmitted Disease Surgical History: Appendectomy (2014) - [employer] Procedures GROUP PSYCHOTHERAPY (12/06/15) INDIVIDUAL PSYCHOTHERAPY, BEHAVIORAL (12/06/15) TETANUS TOXOID ADMINIST (09/18/14) Family History: States: No Known Family Hx - Social History Hx Tobacco Use: Yes Hx Alcohol Use: Yes (social drinking) Hx Substance Use: No (rare) - Immunization History Hx Tetanus Toxoid Vaccination: No Hx Influenza Vaccination: No Hx Pneumococcal Vaccination: No Review Of Systems Constitutional: Negative for: Fever, Chills ENT: Negative for: Throat Pain Cardiovascular: Positive for: Chest Pain Respiratory: Negative for: Shortness of Breath Gastrointestinal: Negative for: Nausea, Vomiting, Abdominal Pain Musculoskeletal: Negative for: Back Pain Skin: Negative for: Rash Neurological: Negative for: Weakness Psych: Negative for: Anxiety Physical Exam - Physical Exam Appears: Non-toxic, No Acute Distress Skin: Warm, Dry Head: Normacephalic Eye(s): bilateral: Normal Inspection Oral Mucosa: Moist Neck: Supple Chest: Symmetrical Cardiovascular: Rhythm Regular Respiratory: No Rales, No Rhonchi, No Wheezing Gastrointestinal/Abdominal: Soft, No Tenderness, No Distention Back: Normal Inspection Extremity: Normal ROM Extremity: Bilateral: Atraumatic Pulses: Left Dorsalis Pedis: Normal, Right Dorsalis Pedis: Normal Neurological/Psych: Oriented x3, Normal Speech, Normal Cognition Gait: Steady ED Course And Treatment - Laboratory Results Result Diagrams: 05/22/17 04:55 05/22/17 04:55 ECG: Interpreted By Me, Viewed By Me ECG Rhythm: Sinus Rhythm (66), Nonspecific Changes O2 Sat by Pulse Oximetry: 96 Pulse Ox Interpretation: Normal - Radiology CXR: Interpreted by Me, Viewed By Me CXR Interpretation: No: Infiltrates, Fracture, Pnemothorax Reevaluation Time: 06:19 Reassessment Condition: Improved Medical Decision Making Medical Decision Making: I considered the following diagnoses: acute coronary syndrome, pulmonary embolism, lower respiratory infection, aortic dissection/aneurysm, pneumothorax , pericarditis, esophagitis/GERD, zoster and esophageal rupture but found them to be unlikely based on the history, physical exam, and diagnostics. My conclusions regarding the unlikely diagnoses were based on: the absence of significant EKG abnormalities, the lack of suggestive x-ray findings, the absence of significant abnormalities on cardiac monitoring, the absence of asymmetric pulses. Pt is cp free Upon provider reevaluation patient is feeling better, is medically stable, and requires no further treatment in the ED at this time. Patient will be discharged home . Counseling was provided and all questions were answered regarding diagnosis and need for follow up with the referred clinic. There is agreement to discharge plan. Return if symptoms persist or worsen. Disposition Counseled Patient/Family Regarding: Studies Performed, Diagnosis, Need For Followup - Disposition Referrals: [facility] [Outside] Disposition: HOME/ ROUTINE Disposition Time: 04:22 Condition: FAIR Instructions: Chest Pain (DC), Palpitations (DC) Forms: [employer] (Faroese) - Clinical Impression Clinical Impression: Chest pain, Palpitations
[2017-05-22] MEDS ORDERED: Aspirin 325 mg EC Tablets PO STA (04:34)
[2017-05-22 04:58] LABS: BASO % 0.7 % (0.0-2.0); EOS # 0.1 K/uL (0.0-0.7); LYMPH # 2.2 K/uL (1.0-4.3); LYMPH % 46.5 % (20.0-40.0); MEAN CELL VOLUME 81.4 fL (80.0-94.0); MEAN CORPUSCULAR HEMOGLOBIN 27.2 pg (27.0-31.0); MEAN CORPUSCULAR HGB CONC 33.5 g/dL (33.0-37.0); MEAN PLATELET VOLUME 8.6 fL (7.2-11.7); MONO # 0.3 K/uL (0.0-0.8); MONO % 5.4 % (0.0-10.0); NEUT # 2.2 K/uL (1.8-7.0); NEUT % 45.4 % (50.0-75.0); NRBC % 0.1 % (0.0-2.0); RBC 4.77 Mil/uL (4.40-5.90); RED CELL DISTRIBUTION WIDTH 14.5 % (11.5-14.5); WHITE BLOOD COUNT 4.8 K/uL (4.8-10.8)
[2017-05-22 05:13] LABS: ALB/GLOB RATIO 1.1 (1.0-2.1); ALBUMIN 3.7 g/dL (3.5-5.0); ALT/SGPT 23 U/L (21-72); AST/SGOT 39 U/L (17-59); BLOOD UREA NITROGEN 16 mg/dL (9-20); CALCIUM 8.9 mg/dl (8.6-10.4); GFR AFRICAN-AMERICAN > 60; GFR NON-AFRICAN AMERICAN > 60
[2017-05-22 06:03] LABS: SQUAMOUS EPITHIAL < 1 /hpf (0-5); URINE BILIRUBIN NEGATIVE (NEGATIVE); URINE BLOOD NEGATIVE (NEGATIVE); URINE CLARITY Clear (Clear); URINE COLOR Yellow (YELLOW); URINE GLUCOSE (UA) NORMAL (Normal); URINE LEUKOCYTE ESTERASE NEG Leu/uL (Negative); URINE PROTEIN NEGATIVE (NEGATIVE); URINE UROBILINOGEN NORMAL mg/dL (0.2-1.0)
[2017-05-22 06:17] LABS: BARBITURATES, UR NEGATIVE (NEGATIVE); BENZODIAZEPINES, UR NEGATIVE (NEGATIVE); OPIATES, UR NEGATIVE (NEGATIVE); PHENCYCLIDINE, UR NEGATIVE (NEGATIVE)
[2017-05-22 06:33] VITALS: BP 111/60; PULSE 64; RESP 16; TEMP 97.6; O2SAT 100
--- NOTE | 2017-05-22 11:59 | RAD ---
PROCEDURE: CHEST RADIOGRAPH, 1 VIEW HISTORY: chest pain COMPARISON: Comparison is made to 05/03/2016 FINDINGS: LUNGS: No evidence of new infiltrate or consolidation in the lungs PLEURA: No pneumothorax or pleural fluid seen. CARDIOVASCULAR: Normal. OSSEOUS STRUCTURES: No significant abnormalities. VISUALIZED UPPER ABDOMEN: Normal. OTHER FINDINGS: None. IMPRESSION: No active disease.
== END 2017-05-22 06:33 | disposition home or self-care (01) ==
LOC: C.ER 04:08
DX: R07.9 Chest pain, unspecified (principal); R00.2 Palpitations
CPT/HCPCS: 71045; 80053; 81001; 84484; 85025; 99284; G0480

== ENCOUNTER 2017-08-09 02:08 | Emergency (ER) | payer MEDICARE ==
[2017-08-09 02:10] VITALS: BMI 21.9
[2017-08-09 02:14] VITALS: RESP 16; O2SAT 99
[2017-08-09 02:55] LABS: BASO % 0.7 % (0.0-2.0); EOS # 0.1 K/uL (0.0-0.7); EOS % 1.7 % (0.0-4.0); LYMPH # 2.2 K/uL (1.0-4.3); LYMPH % 48.9 % (20.0-40.0); MEAN CELL VOLUME 80.6 fL (80.0-94.0); MEAN CORPUSCULAR HEMOGLOBIN 26.8 pg (27.0-31.0); MEAN CORPUSCULAR HGB CONC 33.3 g/dL (33.0-37.0); MEAN PLATELET VOLUME 8.5 fL (7.2-11.7); MONO # 0.2 K/uL (0.0-0.8); MONO % 5.3 % (0.0-10.0); NEUT # 1.9 K/uL (1.8-7.0); NEUT % 43.4 % (50.0-75.0); NRBC % 0.1 % (0.0-2.0); RBC 4.49 Mil/uL (4.40-5.90); RED CELL DISTRIBUTION WIDTH 14.6 % (11.5-14.5); WHITE BLOOD COUNT 4.5 K/uL (4.8-10.8)
[2017-08-09 03:11] LABS: ALB/GLOB RATIO 1.6 (1.0-2.1); ALT/SGPT 32 U/L (21-72); AST/SGOT 25 U/L (17-59); BLOOD UREA NITROGEN 9 mg/dL (9-20); CALCIUM 8.8 mg/dl (8.6-10.4); GFR AFRICAN-AMERICAN > 60; GFR NON-AFRICAN AMERICAN > 60
--- NOTE | 2017-08-09 03:29 | C.PDOC ---
History Of Present Illness 32 year old male presents to the ED c/o palpitation that started a few hours RN IMAGING. Patient denies CP, SOB, fever, chills, weakness, numbness, dizziness. Time Seen by Provider: 08/09/17 02:21 Chief Complaint (Nursing): Palpitations History Per: Patient History/Exam Limitations: no limitations Onset/Duration Of Symptoms: Hrs Current Symptoms Are (Timing): Still Present Quality: "Pain" Modifying Factors: None Exacerbating Factors: None Alleviating Factors: None Recent travel outside of the [place]: No Additional History Per: Patient Past Medical History Reviewed: Historical Data, Nursing Documentation, Vital Signs Vital Signs: Last Vital Signs Temp 98.1 F 08/09/17 02:12 Pulse 80 08/09/17 02:12 Resp 16 08/09/17 02:12 BP 132/87 08/09/17 02:12 Pulse Ox 99 08/09/17 03:32 - Medical History PMH: Schizophrenia Denies: Diabetes, Hepatitis, HIV, HTN, Chronic Kidney Disease, Seizures, Sexually Transmitted Disease Surgical History: Appendectomy (2014) - [employer] Procedures GROUP PSYCHOTHERAPY (12/06/15) INDIVIDUAL PSYCHOTHERAPY, BEHAVIORAL (12/06/15) TETANUS TOXOID ADMINIST (09/18/14) Family History: States: Unknown Family Hx - Social History Hx Tobacco Use: Yes Hx Alcohol Use: Yes (social drinking) Hx Substance Use: No (rare) - Immunization History Hx Tetanus Toxoid Vaccination: No Hx Influenza Vaccination: No Hx Pneumococcal Vaccination: No Review Of Systems Constitutional: Negative for: Fever, Chills Cardiovascular: Positive for: Palpitations. Negative for: Chest Pain Respiratory: Negative for: Cough, Shortness of Breath Gastrointestinal: Negative for: Nausea, Vomiting Skin: Negative for: Rash Physical Exam - Physical Exam Appears: Non-toxic, No Acute Distress Skin: Normal Color, Warm, Dry Head: Atraumatic, Normacephalic Eye(s): bilateral: Normal Inspection Oral Mucosa: Moist Neck: Normal ROM, Supple Chest: Symmetrical Cardiovascular: Rhythm Regular Respiratory: Normal Breath Sounds, No Rales, No Rhonchi, No Wheezing Gastrointestinal/Abdominal: Soft, No Tenderness, No Guarding, No Rebound Extremity: Normal ROM, No Tenderness, No Swelling Neurological/Psych: Oriented x3, Normal Speech Gait: Steady ED Course And Treatment - Laboratory Results Result Diagrams: 08/09/17 02:51 08/09/17 02:51 ECG: Interpreted By Me ECG Rhythm: Sinus Rhythm (at 65 ) ECG Interpretation: Normal, No Acute Changes O2 Sat by Pulse Oximetry: 99 (ON RA) Pulse Ox Interpretation: Normal Progress Note: Plan: - Labs. Pt has been sleeping soundly since arriving to the ED, in no distress. Pt reports feeling better and is stable for dischrge. 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 - Scribe Statement The provider has reviewed the documentation as recorded by the Scribe Al Jacobs All medical record entries made by the Scribe were at my direction and personally dictated by me. I have reviewed the chart and agree that the record accurately reflects my personal performance of the history, physical exam, medical decision making, and the department course for this patient. I have also personally directed, reviewed, and agree with the discharge instructions and disposition.
[2017-08-09 05:00] VITALS: BP 103/66; PULSE 60; TEMP 98
--- NOTE | 2017-08-10 23:48 | CARD ---
APPROVED REPORT EKG Measurement Heart [id number] <Conclusion> Normal sinus rhythm with sinus arrhythmia Normal ECG
== END 2017-08-09 05:02 | disposition home or self-care (01) ==
LOC: C.ER 02:08
DX: R00.2 Palpitations (principal); F20.9 Schizophrenia, unspecified; Z72.0 Tobacco use

== ENCOUNTER 2017-09-12 00:26 | Emergency (ER) | payer MEDICARE ==
[2017-09-12 00:27] VITALS: BMI 21.9
[2017-09-12 00:36] VITALS: RESP 18
[2017-09-12] MEDS ORDERED: Aspirin 325 mg EC Tablets PO STA (01:11)
[2017-09-12 01:31] LABS: BASO % 0.4 % (0.0-2.0); EOS % 1.1 % (0.0-4.0); HEMOGLOBIN 11.5 g/dL (12.0-18.0); LYMPH # 1.9 K/uL (1.0-4.3); LYMPH % 41.9 % (20.0-40.0); MEAN CELL VOLUME 81.5 fL (80.0-94.0); MEAN CORPUSCULAR HEMOGLOBIN 27.1 pg (27.0-31.0); MEAN CORPUSCULAR HGB CONC 33.2 g/dL (33.0-37.0); MEAN PLATELET VOLUME 9.3 fL (7.2-11.7); MONO # 0.3 K/uL (0.0-0.8); MONO % 6.7 % (0.0-10.0); NEUT # 2.2 K/uL (1.8-7.0); NEUT % 49.9 % (50.0-75.0); RBC 4.24 Mil/uL (4.40-5.90); RED CELL DISTRIBUTION WIDTH 15.5 % (11.5-14.5); WHITE BLOOD COUNT 4.5 K/uL (4.8-10.8)
[2017-09-12] MEDS ORDERED: Aspirin 325 mg EC Tablets PO ONE (01:44)
[2017-09-12 01:54] LABS: ALB/GLOB RATIO 1.4 (1.0-2.1); ALBUMIN 3.9 g/dL (3.5-5.0); ALT/SGPT 43 U/L (21-72); AST/SGOT 56 U/L (17-59); BLOOD UREA NITROGEN 13 mg/dL (9-20); CALCIUM 9.1 mg/dl (8.6-10.4); GFR AFRICAN-AMERICAN > 60; GFR NON-AFRICAN AMERICAN > 60
--- NOTE | 2017-09-12 02:20 | C.PDOC ---
Time Seen by Provider: 09/12/17 00:56 Chief Complaint (Nursing): Chest Pain History Per: Patient Onset/Duration Of Symptoms: Hrs (since this morning) Current Symptoms Are (Timing): Still Present Severity: Moderate Quality: "Pain" Modifying Factors: Other Indicated Below Exacerbating Factors: Movement Additional History Per: Prior Records Past Medical History Reviewed: Historical Data, Nursing Documentation, Vital Signs Vital Signs: Last Vital Signs Temp 98.6 F 09/12/17 00:33 Pulse 68 09/12/17 00:42 Resp 18 09/12/17 00:33 BP 124/71 09/12/17 00:42 Pulse Ox 100 09/12/17 00:33 - Medical History PMH: HTN, Hyperlipidemia, Schizophrenia Surgical History: Appendectomy (2014) - [facility] Procedures GROUP PSYCHOTHERAPY (12/06/15) INDIVIDUAL PSYCHOTHERAPY, BEHAVIORAL (12/06/15) TETANUS TOXOID ADMINIST (09/18/14) Family History: States: Unknown Family Hx - Social History Hx Tobacco Use: Yes Hx Alcohol Use: No Hx Substance Use: No (rare) - Immunization History Hx Tetanus Toxoid Vaccination: No Hx Influenza Vaccination: No Hx Pneumococcal Vaccination: No Review Of Systems Except As Marked, All Systems Reviewed And Found Negative. Constitutional: Negative for: Fever, Weakness Cardiovascular: Positive for: Chest Pain Respiratory: Negative for: Shortness of Breath, Hemoptysis Gastrointestinal: Negative for: Nausea, Vomiting Musculoskeletal: Negative for: Neck Pain, Back Pain, Leg Pain Skin: Negative for: Rash Neurological: Negative for: Weakness, Numbness Physical Exam - Physical Exam Appears: Non-toxic, No Acute Distress Skin: Normal Color, Warm, Dry, No Rash Head: Atraumatic, Normacephalic Eye(s): bilateral: PERRL, EOMI Neck: Normal ROM, Supple Chest: Symmetrical, No Deformity, Tenderness (Left costosternal border), No Ecchymosis, No Subcutaneous Emphysema Cardiovascular: Rhythm Regular Respiratory: Normal Breath Sounds, No Accessory Muscle Use Gastrointestinal/Abdominal: Soft Back: No CVA Tenderness, No Vertebral Tenderness Extremity: Normal ROM, No Pedal Edema, No Calf Tenderness Neurological/Psych: Oriented x3, Normal Motor, Normal Sensation ED Course And Treatment - Laboratory Results Result Diagrams: 09/12/17 01:28 09/12/17 01:28 Lab Interpretation: No Acute Changes ECG: Interpreted By Me, Viewed By Me ECG Rhythm: Sinus Rhythm, Nonspecific Changes ECG Interpretation: No Acute Changes Rate From EC O2 Sat by Pulse Oximetry: 100 Pulse Ox Interpretation: Normal - Radiology CXR: Interpreted by Me, Viewed By Me CXR Interpretation: Yes: No Acute Disease Reassessment Condition: Improved Medical Decision Making Medical Decision Making: PERC rule negative. Disposition Counseled Patient/Family Regarding: Studies Performed, Diagnosis, Need For Followup, Rx Given - Disposition Disposition: HOME/ ROUTINE Disposition Time: 02:20 Condition: STABLE Additional Instructions: Follow up with your doctor. Return to the ER if you develop shortness of breath , worsening of symptoms or if you have any other concerns. Prescriptions: Ibuprofen [Motrin Tab] 600 mg PO Q8 PRN #30 tab PRN Reason: Pain, Moderate (4-7) Instructions: Chest Pain (ED) - Clinical Impression Clinical Impression: Non-cardiac chest pain
[2017-09-12 02:34] VITALS: BP 118/77; PULSE 72; TEMP 98.1; O2SAT 98
--- NOTE | 2017-09-12 09:29 | RAD ---
Date of service: 09/12/2017 PROCEDURE: CHEST RADIOGRAPH, 1 VIEW HISTORY: chest pain COMPARISON: Frontal chest radiograph 05/22/2017. FINDINGS: LUNGS: No acute pulmonary disease appreciated bilaterally. PLEURA: No pneumothorax or pleural fluid seen. CARDIOVASCULAR: Normal. OSSEOUS STRUCTURES: No significant abnormalities. VISUALIZED UPPER ABDOMEN: Normal. OTHER FINDINGS: None. IMPRESSION: No interval acute cardiopulmonary disease appreciated.
--- NOTE | 2017-09-14 00:08 | CARD ---
APPROVED REPORT Date of service: 09/12/2017 EKG Measurement Heart [id number] <Conclusion> Normal sinus rhythm with sinus arrhythmia Normal ECG
== END 2017-09-12 02:37 | disposition home or self-care (01) ==
LOC: C.ER 00:26
DX: R07.89 Other chest pain (principal); I10 Essential (primary) hypertension; E78.5 Hyperlipidemia, unspecified; F17.210 Nicotine dependence, cigarettes, uncomplicated

== ENCOUNTER 2017-09-20 23:47 | Emergency (ER) | payer MEDICAID, MEDICARE, OTHER ==
[2017-09-20 23:47] VITALS: BMI 21.9
[2017-09-20 23:52] VITALS: RESP 16
--- NOTE | 2017-09-21 01:07 | C.PDOC ---
History Of Present Illness 32 year old male presents to the ER requesting a place to spend the night. Patient he is homeless and has been in and out of shelters, states he has been sleep deprived for the past 2 weeks. Denies other complaints at this time. Time Seen by Provider: 09/21/17 00:45 Chief Complaint (Nursing): Medical Clearance History Per: Patient History/Exam Limitations: no limitations Onset/Duration Of Symptoms: Hrs Current Symptoms Are (Timing): Still Present Recent travel outside of the [place]: No Past Medical History Reviewed: Historical Data, Nursing Documentation, Vital Signs Vital Signs: Last Vital Signs Temp 98.2 F 09/21/17 05:26 Pulse 86 09/21/17 05:26 Resp 16 09/21/17 05:26 BP 130/86 09/21/17 05:26 Pulse Ox 99 09/21/17 05:26 - Medical History PMH: HTN, Hyperlipidemia, Schizophrenia Denies: HIV, Chronic Kidney Disease, Sexually Transmitted Disease Surgical History: Appendectomy (2014) - [facility] Procedures GROUP PSYCHOTHERAPY (12/06/15) INDIVIDUAL PSYCHOTHERAPY, BEHAVIORAL (12/06/15) TETANUS TOXOID ADMINIST (09/18/14) Family History: States: Unknown Family Hx - Social History Hx Tobacco Use: Yes Hx Alcohol Use: No Hx Substance Use: No (rare) - Immunization History Hx Tetanus Toxoid Vaccination: No Hx Influenza Vaccination: No Hx Pneumococcal Vaccination: No Review Of Systems Constitutional: Negative for: Fever, Chills Cardiovascular: Negative for: Chest Pain, Palpitations Respiratory: Negative for: Cough, Shortness of Breath Gastrointestinal: Negative for: Nausea, Vomiting Neurological: Negative for: Weakness, Numbness Physical Exam - Physical Exam Appears: Non-toxic Skin: Normal Color, Warm, Dry Head: Atraumatic, Normacephalic Eye(s): bilateral: Normal Inspection Oral Mucosa: Moist Chest: Symmetrical, No Tenderness Cardiovascular: Rhythm Regular Respiratory: Normal Breath Sounds, No Rales, No Rhonchi, No Wheezing Gastrointestinal/Abdominal: Soft, No Tenderness Neurological/Psych: Oriented x3, Normal Speech ED Course And Treatment O2 Sat by Pulse Oximetry: 98 (Room air) Pulse Ox Interpretation: Normal Medical Decision Making Medical Decision Making: Will allow patient to rest and will discharge in the morning. Patient observed in ED for over 5 hours with no events. 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 - Scribe Statement The provider has reviewed the documentation as recorded by the Scribsylvester Lopez All medical record entries made by the Mehrdadibsylvester were at my direction and personally dictated by me. I have reviewed the chart and agree that the record accurately reflects my personal performance of the history, physical exam, medical decision making, and the department course for this patient. I have also personally directed, reviewed, and agree with the discharge instructions and disposition.
[2017-09-21 05:27] VITALS: BP 130/86; PULSE 86; TEMP 98.2
[2017-09-21 05:48] VITALS: O2SAT 98
== END 2017-09-21 05:26 | disposition home or self-care (01) ==
LOC: C.ER 23:47
DX: Z59.0 Homelessness (principal); Z72.820 Sleep deprivation; F20.9 Schizophrenia, unspecified; E78.5 Hyperlipidemia, unspecified; I10 Essential (primary) hypertension; Z72.0 Tobacco use

== ENCOUNTER 2017-09-24 01:55 | Emergency (ER) | payer MEDICARE ==
[2017-09-24 01:55] VITALS: BMI 21.9
[2017-09-24 02:10] VITALS: BP 140/94; PULSE 89; TEMP 98.3; O2SAT 98
--- NOTE | 2017-09-24 02:32 | C.PDOC ---
History Of Present Illness 32 year old male with PMHx migraines presents to the ED c/o headache and nausea. Patient was seen here in the ED 2 days ago for homelessness, patient in the ED carrying multiple baggage. Patient denies visual changes, vomit, diarrhea , trauma, injury, fall, weakness, numbness. Chief Complaint (Nursing): GI Problem History Per: Patient History/Exam Limitations: no limitations Onset/Duration Of Symptoms: Days Current Symptoms Are (Timing): Still Present Reports Recently: Seen In ED (2 days ago) Recent travel outside of the [place]: No Additional History Per: Patient Past Medical History Reviewed: Historical Data, Nursing Documentation, Vital Signs Vital Signs: Last Vital Signs Temp 98.3 F 09/24/17 02:06 Pulse 89 09/24/17 02:06 Resp 18 09/24/17 02:06 BP 140/94 H 09/24/17 02:06 Pulse Ox 98 09/24/17 02:34 - Medical History PMH: HTN, Hyperlipidemia, Migraine, Schizophrenia Denies: HIV, Chronic Kidney Disease, Sexually Transmitted Disease Surgical History: Appendectomy (2014) - [facility] Procedures GROUP PSYCHOTHERAPY (12/06/15) INDIVIDUAL PSYCHOTHERAPY, BEHAVIORAL (12/06/15) TETANUS TOXOID ADMINIST (09/18/14) Family History: States: Unknown Family Hx - Social History Hx Tobacco Use: Yes Hx Alcohol Use: No Hx Substance Use: No (rare) - Immunization History Hx Tetanus Toxoid Vaccination: No Hx Influenza Vaccination: No Hx Pneumococcal Vaccination: No Review Of Systems Constitutional: Negative for: Fever, Chills Eyes: Negative for: Vision Change Cardiovascular: Negative for: Chest Pain, Palpitations Respiratory: Negative for: Cough, Shortness of Breath Gastrointestinal: Positive for: Nausea. Negative for: Vomiting, Abdominal Pain Skin: Negative for: Rash Neurological: Positive for: Headache. Negative for: Dizziness Physical Exam - Physical Exam Appears: Non-toxic, No Acute Distress Skin: Normal Color, Warm, Dry Head: Atraumatic, Normacephalic Eye(s): bilateral: Normal Inspection, PERRL, EOMI Oral Mucosa: Moist Neck: Normal ROM, No Midline Cervical Tenderness, Supple Chest: Symmetrical Cardiovascular: Rhythm Regular Respiratory: Normal Breath Sounds, No Rales, No Rhonchi, No Wheezing Gastrointestinal/Abdominal: Soft, No Tenderness, No Guarding, No Rebound Extremity: Normal ROM, No Tenderness, No Swelling Neurological/Psych: Oriented x3, Normal Speech, Normal Motor, Normal Sensation Gait: Steady ED Course And Treatment O2 Sat by Pulse Oximetry: 98 (ON RA) Pulse Ox Interpretation: Normal Medical Decision Making Medical Decision Making: PLAN: * Toradol 60 mg IM * Zofran 4 mg PO Disposition Counseled Patient/Family Regarding: Diagnosis - Disposition Referrals: Non [facility] Provider, [Primary Care Provider] - [facility] [Outside] Disposition: HOME/ ROUTINE Disposition Time: 02:55 Condition: STABLE Instructions: Migraine Headache (DC) Forms: [employer] ([place]) - Clinical Impression Clinical Impression: Migraine, Homelessness - Scribe Statement The provider has reviewed the documentation as recorded by the Scribe Al Jacobs All medical record entries made by the Scribe were at my direction and personally dictated by me. I have reviewed the chart and agree that the record accurately reflects my personal performance of the history, physical exam, medical decision making, and the department course for this patient. I have also personally directed, reviewed, and agree with the discharge instructions and disposition.
[2017-09-24 03:02] VITALS: RESP 14
== END 2017-09-24 03:00 | disposition home or self-care (01) ==
LOC: SUPCPDRO 01:55 → C.ER 01:55
DX: G43.909 Migraine, unspecified, not intractable, without status migrainosus (principal); Z59.0 Homelessness
CPT/HCPCS: 96372; 99283; J1885

== ENCOUNTER 2017-09-28 23:11 | Emergency (ER) | payer MEDICARE ==
[2017-09-28 23:12] VITALS: BMI 21.9
[2017-09-28 23:38] VITALS: BP 147/99; PULSE 72; RESP 20; TEMP 98.2; O2SAT 100
--- NOTE | 2017-09-28 23:51 | C.PDOC ---
History Of Present Illness 32 year old male presents to ED for evaluation of throbbing headache. He reports headache is recurrent for a month and associated with nausea and no vomiting, but is not currently nauseous. Denies fever, chills, neck pain, stiffness, trauma, vision changes, abdominal pain, shortness of breath and dizziness. Note patient is homeless and has frequent ER visits for similar complaints. Time Seen by Provider: 09/28/17 23:42 Chief Complaint (Nursing): Headache History Per: Patient History/Exam Limitations: no limitations Onset/Duration Of Symptoms: Persistent Current Symptoms Are (Timing): Still Present Quality: "Pain" Associated Symptoms: Nausea. denies: Vomiting Additional History Per: Patient Past Medical History Reviewed: Historical Data, Nursing Documentation, Vital Signs Vital Signs: Last Vital Signs Temp 98.2 F 09/28/17 23:36 Pulse 72 09/28/17 23:36 Resp 20 09/28/17 23:36 BP 147/99 H 09/28/17 23:36 Pulse Ox 100 09/29/17 00:21 - Medical History PMH: HTN, Hyperlipidemia, Migraine, Schizophrenia Denies: HIV, Chronic Kidney Disease, Sexually Transmitted Disease Surgical History: Appendectomy (2014) - [facility] Procedures GROUP PSYCHOTHERAPY (12/06/15) INDIVIDUAL PSYCHOTHERAPY, BEHAVIORAL (12/06/15) TETANUS TOXOID ADMINIST (09/18/14) Family History: States: No Known Family Hx - Social History Hx Tobacco Use: Yes Hx Alcohol Use: Yes Hx Substance Use: No (rare) - Immunization History Hx Tetanus Toxoid Vaccination: No Hx Influenza Vaccination: No Hx Pneumococcal Vaccination: No Review Of Systems Except As Marked, All Systems Reviewed And Found Negative. Constitutional: Negative for: Fever, Chills Eyes: Negative for: Vision Change Respiratory: Negative for: Shortness of Breath Gastrointestinal: Positive for: Nausea. Negative for: Vomiting Neurological: Positive for: Headache. Negative for: Dizziness Physical Exam - Physical Exam Appears: Non-toxic, No Acute Distress Skin: Normal Color Head: Atraumatic, Normacephalic Eye(s): bilateral: Normal Inspection, PERRL, EOMI Neck: Supple Chest: Symmetrical Cardiovascular: Rhythm Regular Respiratory: Normal Breath Sounds Extremity: Normal ROM Neurological/Psych: Oriented x3, Normal Speech, Normal Cognition, Normal Motor, Normal Sensation ED Course And Treatment O2 Sat by Pulse Oximetry: 100 Medical Decision Making Medical Decision Making: Impression: headache, homeless male Prior records reviewed: patient recently seen 09/26/17 for headache. Patient had labwork and CT of head with no acute findings. UTox +cannabis Plan: * Tylenol * Motrin Progress: On reassessment, patient is resting comfortably, in no distress. Patient has no fever, neurologic deficit, photophobia, rash, or nuchal rigidity. Patient stable for discharge. 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 - Scribe Statement The provider has reviewed the documentation as recorded by the Lexi Gruber Provider Attestation: All medical record entries made by the Lexi were at my direction and personally dictated by me. I have reviewed the chart and agree that the record accurately reflects my personal performance of the history, physical exam, medical decision making, and the department course for this patient. I have also personally directed, reviewed, and agree with the discharge instructions and disposition.
== END 2017-09-29 00:10 | disposition home or self-care (01) ==
LOC: C.ER 23:11
DX: R51 Headache (principal); Z59.0 Homelessness

== ENCOUNTER 2017-10-05 00:45 | Emergency (ER) | payer MEDICARE ==
[2017-10-05 00:45] VITALS: BMI 21.9
[2017-10-05 00:55] VITALS: RESP 20
--- NOTE | 2017-10-05 01:07 | C.PDOC ---
History Of Present Illness 32 year old male presents to the ED requesting for a place to sleep. Patient denies nay alcohol or drug use. Patient denies SI/HI, hallucinations, other medical complaints. Time Seen by Provider: 10/05/17 01:07 Chief Complaint (Nursing): Lower Extremity Problem/Injury History Per: Patient History/Exam Limitations: no limitations Onset/Duration Of Symptoms: Hrs Current Symptoms Are (Timing): Better Recent travel outside of the [place]: No Additional History Per: Patient - Ankle/Foot Description Of Injury: Other Past Medical History Reviewed: Historical Data, Nursing Documentation, Vital Signs Vital Signs: Last Vital Signs Temp 97.9 F 10/05/17 05:11 Pulse 80 10/05/17 05:11 Resp 20 10/05/17 05:11 BP 128/85 10/05/17 05:11 Pulse Ox 98 10/05/17 05:11 - Medical History PMH: HTN, Hyperlipidemia, Migraine, Schizophrenia Denies: HIV, Chronic Kidney Disease, Sexually Transmitted Disease Surgical History: Appendectomy (2014) - [facility] Procedures GROUP PSYCHOTHERAPY (12/06/15) INDIVIDUAL PSYCHOTHERAPY, BEHAVIORAL (12/06/15) TETANUS TOXOID ADMINIST (09/18/14) Family History: States: Unknown Family Hx - Social History Hx Tobacco Use: Yes Hx Alcohol Use: Yes Hx Substance Use: No (rare) - Immunization History Hx Tetanus Toxoid Vaccination: No Hx Influenza Vaccination: No Hx Pneumococcal Vaccination: No Review Of Systems Constitutional: Negative for: Fever, Chills Cardiovascular: Negative for: Chest Pain, Palpitations Respiratory: Negative for: Cough, Shortness of Breath Skin: Negative for: Rash Neurological: Negative for: Weakness, Numbness Psych: Negative for: Depression, Suicidal ideation Physical Exam - Physical Exam Appears: Non-toxic, No Acute Distress Skin: Warm, Dry Head: Normacephalic Eye(s): bilateral: Normal Inspection Neck: Supple Chest: Symmetrical Cardiovascular: Rhythm Regular Respiratory: No Rales, No Rhonchi, No Wheezing Gastrointestinal/Abdominal: Soft, No Tenderness, No Guarding, No Rebound Extremity: No Tenderness, No Swelling Extremity: Bilateral: Atraumatic, Normal Color And Temperature, Normal ROM Neurological/Psych: Oriented x3, Normal Speech Gait: Steady ED Course And Treatment O2 Sat by Pulse Oximetry: 99 (ON RA) Pulse Ox Interpretation: Normal Reevaluation Time: 05:39 Reassessment Condition: Improved Disposition Counseled Patient/Family Regarding: Studies Performed, Diagnosis, Need For Followup - Disposition Referrals: [facility] [Outside] Disposition: HOME/ ROUTINE Disposition Time: 01:07 Condition: FAIR Forms: [facility] (Libyan), General Discharge Instructions - Clinical Impression Clinical Impression: Medical assessment - Scribe Statement The provider has reviewed the documentation as recorded by the Scribe Al Jacobs All medical record entries made by the Scribe were at my direction and personally dictated by me. I have reviewed the chart and agree that the record accurately reflects my personal performance of the history, physical exam, medical decision making, and the department course for this patient. I have also personally directed, reviewed, and agree with the discharge instructions and disposition.
[2017-10-05 05:12] VITALS: BP 128/85; PULSE 80; TEMP 97.9
[2017-10-05 05:40] VITALS: O2SAT 99
== END 2017-10-05 05:20 | disposition home or self-care (01) ==
LOC: C.ER 00:45
DX: Z04.8 Encounter for examination and observation for other specified reasons (principal)

== ENCOUNTER 2017-11-05 21:33 | Emergency (ER) | payer MEDICARE ==
[2017-11-05 21:34] VITALS: BMI 21.9
[2017-11-05 21:57] VITALS: RESP 16
--- NOTE | 2017-11-05 22:51 | C.PDOC ---
History Of Present Illness Pt presents wanting a place to stay. States he is homeless. Denies any other medical complaints Time Seen by Provider: 11/05/17 22:50 Chief Complaint (Nursing): Medical Clearance History Per: Patient History/Exam Limitations: no limitations Onset/Duration Of Symptoms: Days Current Symptoms Are (Timing): Still Present Severity: None Recent travel outside of the [place]: No Additional History Per: Patient Past Medical History Reviewed: Historical Data, Nursing Documentation, Vital Signs Vital Signs: Last Vital Signs Temp 98.6 F 11/05/17 21:52 Pulse 90 11/05/17 21:52 Resp 16 11/05/17 21:52 BP 120/87 11/05/17 21:52 Pulse Ox 98 11/05/17 21:52 - Medical History PMH: HTN, Hyperlipidemia, Migraine, Schizophrenia Denies: HIV, Chronic Kidney Disease, Sexually Transmitted Disease Surgical History: Appendectomy (2014) - [facility] Procedures GROUP PSYCHOTHERAPY (12/06/15) INDIVIDUAL PSYCHOTHERAPY, BEHAVIORAL (12/06/15) TETANUS TOXOID ADMINIST (09/18/14) Family History: States: No Known Family Hx - Social History Hx Tobacco Use: Yes Hx Alcohol Use: No Hx Substance Use: Yes (rare) - Immunization History Hx Tetanus Toxoid Vaccination: Yes Hx Influenza Vaccination: Yes Hx Pneumococcal Vaccination: Yes Review Of Systems Constitutional: Negative for: Fever, Chills Cardiovascular: Negative for: Chest Pain Respiratory: Negative for: Shortness of Breath Gastrointestinal: Negative for: Abdominal Pain, Diarrhea Neurological: Negative for: Weakness Psych: Negative for: Anxiety Physical Exam - Physical Exam Appears: Non-toxic, No Acute Distress Skin: Warm, Dry Oral Mucosa: Moist Neck: Supple Cardiovascular: Rhythm Regular Respiratory: No Rales, No Rhonchi, No Wheezing Gastrointestinal/Abdominal: No Tenderness Extremity: Normal ROM Neurological/Psych: Oriented x3 (AAOx3) Gait: Steady ED Course And Treatment O2 Sat by Pulse Oximetry: 98 (RA) Pulse Ox Interpretation: Normal Reevaluation Time: 05:27 Reassessment Condition: Improved Disposition Counseled Patient/Family Regarding: Studies Performed, Diagnosis, Need For Followup - Disposition Referrals: [facility] [Outside] Disposition: HOME/ ROUTINE Disposition Time: 22:50 Condition: FAIR Forms: [facility] (Turkish), General Discharge Instructions - Clinical Impression Clinical Impression: Encounter for medical assessment - Scribe Statement Chandrika Appiah Provider Attestation: All medical record entries made by the Scribe were at my direction and personall y dictated by me. I have reviewed the chart and agree that the record accurately reflects my personal performance of the history, physical exam, medical decision making, and the department course for this patient. I have also personally directed, reviewed, and agree with the discharge instructions and disposition.
[2017-11-06 03:51] VITALS: BP 106/68; PULSE 66; TEMP 97.7
[2017-11-06 05:28] VITALS: O2SAT 98
== END 2017-11-06 05:49 | disposition home or self-care (01) ==
LOC: C.ER 21:33
DX: Z00.00 Encounter for general adult medical examination without abnormal findings (principal); Z59.0 Homelessness

== ENCOUNTER 2017-11-09 19:11 | Emergency (ER) | payer MEDICARE ==
[2017-11-09 19:12] VITALS: BMI 21.9
[2017-11-09 19:24] VITALS: O2SAT 98
[2017-11-09 20:20] LABS: BASO % 0.9 % (0.0-2.0); EOS # 0.1 K/uL (0.0-0.7); EOS % 1.7 % (0.0-4.0); HEMOGLOBIN 12.6 g/dL (12.0-18.0); LYMPH # 2.4 K/uL (1.0-4.3); LYMPH % 48.9 % (20.0-40.0); MEAN CELL VOLUME 80.7 fL (80.0-94.0); MEAN CORPUSCULAR HEMOGLOBIN 27.2 pg (27.0-31.0); MEAN CORPUSCULAR HGB CONC 33.6 g/dL (33.0-37.0); MEAN PLATELET VOLUME 8.8 fL (7.2-11.7); MONO # 0.3 K/uL (0.0-0.8); MONO % 6.3 % (0.0-10.0); NEUT % 42.2 % (50.0-75.0); NRBC % 0.1 % (0.0-2.0); RBC 4.63 Mil/uL (4.40-5.90); RED CELL DISTRIBUTION WIDTH 15.3 % (11.5-14.5); WHITE BLOOD COUNT 4.8 K/uL (4.8-10.8)
[2017-11-09 20:24] LABS: ALB/GLOB RATIO 1.4 (1.0-2.1); ALT/SGPT 39 U/L (21-72); AST/SGOT 37 U/L (17-59); BLOOD UREA NITROGEN 21 mg/dL (9-20); CALCIUM 9.6 mg/dl (8.6-10.4); GFR NON-AFRICAN AMERICAN > 60
[2017-11-09 20:55] VITALS: BP 126/73; PULSE 69; RESP 18; TEMP 98
--- NOTE | 2017-11-09 22:05 | C.PDOC ---
History Of Present Illness 32 year old male presents to the ER with a complaint of chronic palpitations he has had for an unknown amount of time. Patient has had numerous ER visits in the past for similar complaints. Denies chest pain, SOB, fever, or cough. Chief Complaint (Nursing): Palpitations History Per: Patient History/Exam Limitations: no limitations Onset/Duration Of Symptoms: Days, Unknown Current Symptoms Are (Timing): Still Present Recent travel outside of the [place]: No Past Medical History Reviewed: Historical Data, Nursing Documentation, Vital Signs Vital Signs: Last Vital Signs Temp 98 F 11/09/17 20:54 Pulse 69 11/09/17 20:54 Resp 18 11/09/17 20:54 BP 126/73 11/09/17 20:54 Pulse Ox 98 11/09/17 20:54 - Medical History PMH: HTN, Hyperlipidemia, Migraine, Schizophrenia Denies: HIV, Chronic Kidney Disease, Sexually Transmitted Disease Surgical History: Appendectomy (2014) - [facility] Procedures GROUP PSYCHOTHERAPY (12/06/15) INDIVIDUAL PSYCHOTHERAPY, BEHAVIORAL (12/06/15) TETANUS TOXOID ADMINIST (09/18/14) Family History: States: Unknown Family Hx - Social History Hx Tobacco Use: Yes Hx Alcohol Use: No Hx Substance Use: Yes - Immunization History Hx Tetanus Toxoid Vaccination: Yes Hx Influenza Vaccination: Yes Hx Pneumococcal Vaccination: Yes Review Of Systems Constitutional: Negative for: Fever, Chills Cardiovascular: Positive for: Palpitations. Negative for: Chest Pain Respiratory: Negative for: Cough, Shortness of Breath Gastrointestinal: Negative for: Nausea, Vomiting Neurological: Negative for: Weakness, Numbness Physical Exam - Physical Exam Appears: Non-toxic Skin: Normal Color, Warm, Dry Head: Atraumatic, Normacephalic Eye(s): bilateral: Normal Inspection Oral Mucosa: Moist Neck: Normal, Supple Chest: Symmetrical, No Tenderness Cardiovascular: Rhythm Regular Respiratory: Normal Breath Sounds, No Rales, No Rhonchi, No Wheezing Gastrointestinal/Abdominal: Soft, No Tenderness Back: No CVA Tenderness Extremity: Normal ROM (x4) Neurological/Psych: Oriented x3, Normal Speech Gait: Steady ED Course And Treatment - Laboratory Results Result Diagrams: 11/09/17 20:08 11/09/17 20:08 ECG: Interpreted By Me, Viewed By Me ECG Rhythm: Sinus Rhythm ECG Interpretation: Normal Rate From EC O2 Sat by Pulse Oximetry: 98 (Room air) Pulse Ox Interpretation: Normal Progress Note: EKG, blood work, and CXR ordered. Toradol administered. Disposition - Disposition Referrals: [facility] [Outside] [facility] [Outside] Disposition: HOME/ ROUTINE Disposition Time: 20:38 Condition: GOOD Additional Instructions: LUZ BLANK, thank you for letting us take care of you today. Your provider was Bryant Womack DO and you were treated for NAUSEA/PALPITATIONS/HEADACHE. The emergency medical care you received today was directed at your acute symptoms. If you were prescribed any medication, please fill it and take as directed. It may take several days for your symptoms to resolve. Return to the Emergency Department if your symptoms worsen, do not improve, or if you have any other problems. Please contact your doctor or call one of the physicians/clinics you have been r eferred to that are listed on the Patient Visit Information form that is included in your discharge packet. Bring any paperwork you were given at discharge with you along with any medications you are taking to your follow up visit. Our treatment cannot replace ongoing medical care by a primary care provider outside of the emergency department. Thank you for allowing the [facility] team to be part of your care today. Follow up with the clinic this week for outpatient care. Prescriptions: Ibuprofen [Motrin] 600 mg PO Q6 PRN #20 tab PRN Reason: Pain, Moderate (4-7) Instructions: Palpitations (DC) Forms: [employer] (Kinyarwanda) - Clinical Impression Clinical Impression: Palpitations - Scribe Statement The provider has reviewed the documentation as recorded by the Scribe Jonathan Lopez All medical record entries made by the Scribe were at my direction and personally dictated by me. I have reviewed the chart and agree that the record accurately reflects my personal performance of the history, physical exam, medical decision making, and the department course for this patient. I have also personally directed, reviewed, and agree with the discharge instructions and disposition.
--- NOTE | 2017-11-10 07:28 | RAD ---
Chest x-ray single frontal view HISTORY: Chest pain. COMPARISON: 09/12/2017 FINDINGS: No focal infiltrate or effusion. Heart size within normal limits. IMPRESSION: No focal infiltrate or effusion.
--- NOTE | 2017-11-10 13:13 | CARD ---
APPROVED REPORT Date of service: 11/09/2017 EKG Measurement Heart [id number] <Conclusion> Normal sinus rhythm Normal ECG
== END 2017-11-09 20:55 | disposition home or self-care (01) ==
LOC: C.ER 19:11
DX: R00.2 Palpitations (principal); E78.5 Hyperlipidemia, unspecified; F20.9 Schizophrenia, unspecified; I10 Essential (primary) hypertension; Z72.0 Tobacco use
CPT/HCPCS: 71045; 80053; 84484; 85025; 93005; 96374; 99284; J1885

== ENCOUNTER 2017-11-18 22:39 | Emergency (ER) | payer MEDICARE ==
[2017-11-18 22:39] VITALS: BMI 21.9
[2017-11-18 22:53] VITALS: BP 118/74; PULSE 78; RESP 20; TEMP 98.4; O2SAT 97
--- NOTE | 2017-11-18 23:03 | C.PDOC ---
History Of Present Illness 32 year old male presents to ED complaining he is exhausted and sleep deprived and feels achy. Patient states he is homeless and does not like sleeping at the senior living and looking to sleep here in the hospital. Time Seen by Provider: 11/18/17 23:00 Chief Complaint (Nursing): Medical Clearance History Per: Patient History/Exam Limitations: no limitations Onset/Duration Of Symptoms: Days Past Medical History Reviewed: Historical Data, Nursing Documentation, Vital Signs Vital Signs: Last Vital Signs Temp 98.4 F 11/18/17 22:49 Pulse 78 11/18/17 22:49 Resp 20 11/18/17 22:49 BP 118/74 11/18/17 22:49 Pulse Ox 97 11/18/17 22:49 - Medical History PMH: HTN, Hyperlipidemia, Migraine, Schizophrenia Surgical History: Appendectomy (2014) - [employer] Procedures GROUP PSYCHOTHERAPY (12/06/15) INDIVIDUAL PSYCHOTHERAPY, BEHAVIORAL (12/06/15) TETANUS TOXOID ADMINIST (09/18/14) Family History: States: Unknown Family Hx - Social History Hx Tobacco Use: Yes Hx Alcohol Use: No Hx Substance Use: Yes - Immunization History Hx Tetanus Toxoid Vaccination: Yes Hx Influenza Vaccination: Yes Hx Pneumococcal Vaccination: Yes Review Of Systems Constitutional: Negative for: Fever Eyes: Negative for: Vision Change, Redness Cardiovascular: Negative for: Chest Pain Respiratory: Negative for: Cough, Shortness of Breath Gastrointestinal: Negative for: Abdominal Pain Musculoskeletal: Positive for: Other (fatigue) Skin: Negative for: Rash Neurological: Negative for: Headache Physical Exam - Physical Exam Appears: Well, Non-toxic, No Acute Distress Skin: Warm, Dry, No Diaphoretic, No Pale, No Rash, No Jaundice Head: Atraumatic, Normacephalic Eye(s): bilateral: Normal Inspection, EOMI Nose: Normal Neck: Normal ROM Chest: Symmetrical Cardiovascular: Rhythm Regular, No Murmur Respiratory: Normal Breath Sounds, No Wheezing Extremity: Bilateral: Atraumatic, Normal Color And Temperature, Normal ROM Neurological/Psych: Oriented x3, Normal Speech Gait: Steady ED Course And Treatment O2 Sat by Pulse Oximetry: 97 Medical Decision Making Medical Decision Making: Patient is homeless and wanting a place to stay. Patient has multiple ER visits for the same. He states does not like the senior living. I explain to the patient this is a hospital Emergency room and cannot stay here. Will provide list of local shelters. Patient does not want to leave. Offer the patient to use the phone to call a friend or relative and if he can stay there. Patient then eloped ED without papers. Note patient had recent workup without any acute findings. Disposition Counseled Patient/Family Regarding: Diagnosis, Need For Followup - Disposition Disposition: HOME/ ROUTINE Disposition Time: 23:18 Condition: STABLE Additional Instructions: Follow up with the clinic in 2-5 days for further evaluation [facility] at [address] [place] [address]. Please call [phone] Instructions: Fatigue Forms: [facility] (Upper Sorbian) - POA Present On Arrival: None - Clinical Impression Clinical Impression: Homeless single person, Sleep deprivation
== END 2017-11-18 23:18 | disposition home or self-care (01) ==
LOC: C.ER 22:39
DX: Z72.820 Sleep deprivation (principal); Z59.0 Homelessness

== ENCOUNTER 2017-11-29 01:38 | Emergency (ER) | payer MEDICAID, MEDICARE, OTHER ==
[2017-11-29 01:38] VITALS: BMI 21.9
--- NOTE | 2017-11-29 02:12 | C.PDOC ---
History Of Present Illness 32 y/o male presents to the ED requesting a place to stay the night. Denies having any physical complaints. Also denies any suicidal or homicidal ideation. Time Seen by Provider: 11/29/17 01:59 Chief Complaint (Nursing): Headache History Per: Patient History/Exam Limitations: no limitations Onset/Duration Of Symptoms: Days Current Symptoms Are (Timing): Still Present Severity: None Pain Scale Rating Of: 0 Recent travel outside of the [place]: No Past Medical History Reviewed: Historical Data, Nursing Documentation, Vital Signs Vital Signs: Last Vital Signs Temp 97.6 F 11/29/17 01:49 Pulse 70 11/29/17 01:49 Resp 19 11/29/17 01:49 BP 146/99 H 11/29/17 01:49 Pulse Ox 100 11/29/17 01:49 - Medical History PMH: HTN, Hyperlipidemia, Migraine, Schizophrenia Denies: HIV, Chronic Kidney Disease, Sexually Transmitted Disease Surgical History: Appendectomy (2014) - [facility] Procedures GROUP PSYCHOTHERAPY (12/06/15) INDIVIDUAL PSYCHOTHERAPY, BEHAVIORAL (12/06/15) TETANUS TOXOID ADMINIST (09/18/14) Family History: States: Unknown Family Hx - Social History Hx Tobacco Use: Yes Hx Alcohol Use: No Hx Substance Use: Yes - Immunization History Hx Tetanus Toxoid Vaccination: Yes Hx Influenza Vaccination: Yes Hx Pneumococcal Vaccination: Yes Review Of Systems Constitutional: Negative for: Fever, Chills Gastrointestinal: Negative for: Nausea, Vomiting Psych: Negative for: Suicidal ideation (or homicidal) Physical Exam - Physical Exam Appears: Non-toxic, No Acute Distress Skin: Warm, Dry Head: Normacephalic Eye(s): bilateral: Normal Inspection Neck: Trachea Midline, Supple Chest: Symmetrical Cardiovascular: Rhythm Regular Respiratory: No Rales, No Rhonchi, No Wheezing Gastrointestinal/Abdominal: Soft, No Tenderness, No Distention Extremity: Bilateral: Atraumatic, Normal Color And Temperature, Normal ROM Pulses: Left Dorsalis Pedis: Normal, Right Dorsalis Pedis: Normal Neurological/Psych: Oriented x3 Gait: Steady ED Course And Treatment O2 Sat by Pulse Oximetry: 100 (RA) Pulse Ox Interpretation: Normal Progress Note: On reassessment patient is resting comfortably in stretcher. He remains afebrile, AAOx3, in no acute distress. Patient is stable for d/c home. Reevaluation Time: 05:11 Reassessment Condition: Improved Disposition Counseled Patient/Family Regarding: Studies Performed, Diagnosis, Need For Followup - Disposition Referrals: at [facility] [Outside] Disposition: HOME/ ROUTINE Disposition Time: 02:12 Condition: FAIR Forms: [facility] (Scottish), General Discharge Instructions - Clinical Impression Clinical Impression: Medical assessment - Scribe Statement The provider has reviewed the documentation as recorded by the Scribe (Ana Wright) Provider Attestation: All medical record entries made by the Scribe were at my direction and personally dictated by me. I have reviewed the chart and agree that the record accurately reflects my personal performance of the history, physical exam, medical decision making, and the department course for this patient. I have also personally directed, reviewed, and agree with the discharge instructions and disposition.
[2017-11-29 05:58] VITALS: BP 136/70; PULSE 72; RESP 20; TEMP 97.8; O2SAT 98
== END 2017-11-29 05:58 | disposition home or self-care (01) ==
LOC: C.ER 01:38
DX: Z00.00 Encounter for general adult medical examination without abnormal findings (principal)

== ENCOUNTER 2017-11-30 23:51 | Emergency (ER) | payer MEDICARE ==
[2017-11-30 23:51] VITALS: BMI 21.9
--- NOTE | 2017-12-01 01:47 | C.PDOC ---
History Of Present Illness 32 year old male presents to the ED requesting for a place to sleep. Contrary to triage patient states all he wants his a place to sleep. Patient denies abdominal pain, nausea, vomit, diarrhea, dysuria, hematuria, back pain. Time Seen by Provider: 12/01/17 00:21 Chief Complaint (Nursing): Abdominal Pain History Per: Patient History/Exam Limitations: no limitations Onset/Duration Of Symptoms: Hrs Current Symptoms Are (Timing): Gone Severity: None Radiation Of Pain To:: None Associated Symptoms: denies: Nausea, Vomiting, Diarrhea, Urinary Symptoms Exacerbating Factors: None Alleviating Factors: None Recent travel outside of the [place]: No Additional History Per: Patient Past Medical History Reviewed: Historical Data, Nursing Documentation, Vital Signs Vital Signs: Last Vital Signs Temp 98.2 F 12/01/17 00:02 Pulse 64 12/01/17 00:02 Resp 20 12/01/17 00:02 BP 131/86 12/01/17 00:02 Pulse Ox - Medical History PMH: HTN, Hyperlipidemia, Migraine, Schizophrenia Denies: HIV, Chronic Kidney Disease, Sexually Transmitted Disease Surgical History: Appendectomy (2014) - [employer] Procedures GROUP PSYCHOTHERAPY (12/06/15) INDIVIDUAL PSYCHOTHERAPY, BEHAVIORAL (12/06/15) TETANUS TOXOID ADMINIST (09/18/14) Family History: States: Unknown Family Hx - Social History Hx Tobacco Use: Yes Hx Alcohol Use: No Hx Substance Use: Yes - Immunization History Hx Tetanus Toxoid Vaccination: Yes Hx Influenza Vaccination: Yes Hx Pneumococcal Vaccination: Yes Review Of Systems Constitutional: Negative for: Fever, Chills Cardiovascular: Negative for: Chest Pain Respiratory: Negative for: Shortness of Breath Gastrointestinal: Negative for: Nausea, Vomiting, Abdominal Pain, Diarrhea Genitourinary: Negative for: Dysuria, Hematuria Musculoskeletal: Negative for: Back Pain Skin: Negative for: Rash Neurological: Negative for: Weakness, Numbness Physical Exam - Physical Exam Appears: Non-toxic, No Acute Distress Skin: Warm, Dry Head: Normacephalic Eye(s): bilateral: Normal Inspection Neck: Supple Chest: Symmetrical Cardiovascular: Rhythm Regular Respiratory: No Rales, No Rhonchi, No Wheezing Gastrointestinal/Abdominal: Soft, No Tenderness, No Guarding, No Rebound Extremity: Bilateral: Atraumatic, Normal Color And Temperature, Normal ROM Neurological/Psych: Oriented x3, Normal Speech, Normal Cognition Gait: Steady ED Course And Treatment O2 Sat by Pulse Oximetry: 98 Pulse Ox Interpretation: Normal Reevaluation Time: 05:10 Reassessment Condition: Improved Disposition Counseled Patient/Family Regarding: Studies Performed, Diagnosis, Need For Followup - Disposition Referrals: [facility] [Outside] Disposition: HOME/ ROUTINE Disposition Time: 00:40 Condition: FAIR Forms: [facility] (Guatemalan), General Discharge Instructions - Clinical Impression Clinical Impression: Medical assessment - Scribe Statement The provider has reviewed the documentation as recorded by the Scribe Al Jacobs All medical record entries made by the Scribe were at my direction and personally dictated by me. I have reviewed the chart and agree that the record accurately reflects my personal performance of the history, physical exam, medical decision making, and the department course for this patient. I have also personally directed, reviewed, and agree with the discharge instructions and disposition.
[2017-12-01 10:35] VITALS: BP 128/80; PULSE 66; RESP 18; TEMP 98.2
[2017-12-01 10:57] VITALS: O2SAT 99
== END 2017-12-01 05:52 | disposition home or self-care (01) ==
LOC: C.ER 23:51
DX: Z04.89 Encounter for examination and observation for other specified reasons (principal); I10 Essential (primary) hypertension; F17.210 Nicotine dependence, cigarettes, uncomplicated

== ENCOUNTER 2017-12-04 01:44 | Emergency (ER) | payer MEDICAID, MEDICARE, OTHER ==
[2017-12-04 01:45] VITALS: BMI 21.9
--- NOTE | 2017-12-04 02:25 | C.PDOC ---
History Of Present Illness 32 year old male presents to the emergency department with complaints of intermittent LLQ pain. He states that he has has stomach pain on and off for a week, associated with vomiting, nausea, diarrhea, vomiting, and constipation. Time Seen by Provider: 12/04/17 02:19 Chief Complaint (Nursing): Abdominal Pain History Per: Patient History/Exam Limitations: no limitations Onset/Duration Of Symptoms: Intermittent Episodes Current Symptoms Are (Timing): Still Present Location Of Pain/Discomfort: LLQ Associated Symptoms: Nausea, Vomiting, Diarrhea, Constipation Past Medical History Vital Signs: Last Vital Signs Temp 97.6 F 12/04/17 01:48 Pulse 102 H 12/04/17 01:48 Resp 22 12/04/17 01:48 BP 139/92 H 12/04/17 01:48 Pulse Ox 99 12/04/17 01:48 - Medical History PMH: HTN, Hyperlipidemia, Migraine, Schizophrenia Denies: HIV, Chronic Kidney Disease, Sexually Transmitted Disease Surgical History: Appendectomy (2014) - [facility] Procedures GROUP PSYCHOTHERAPY (12/06/15) INDIVIDUAL PSYCHOTHERAPY, BEHAVIORAL (12/06/15) TETANUS TOXOID ADMINIST (09/18/14) Family History: States: Unknown Family Hx - Social History Hx Tobacco Use: Yes Hx Alcohol Use: No Hx Substance Use: Yes - Immunization History Hx Tetanus Toxoid Vaccination: Yes Hx Influenza Vaccination: No Hx Pneumococcal Vaccination: No Review Of Systems Except As Marked, All Systems Reviewed And Found Negative. Gastrointestinal: Positive for: Nausea, Vomiting, Abdominal Pain, Diarrhea, Constipation Physical Exam - Physical Exam Additional Physical Exam Comments: Constitutional: No acute distress. Head: Normocephalic. Atraumatic. Eyes: PERRL. ENT: Moist mucous membranes. Neck: Supple. Cardiovascular: Regular rate. Radial pulse 2+ bilaterally. Chest: No tenderness. Respiratory: Clear to auscultation bilaterally. GI: Soft. LLQ tenderness. Voluntary guarding. Nondistended. Back: No CVA tenderness. Musculoskeletal: No tenderness or swelling of extremities. Skin: No rash. Neurologic: Alert, no focal deficit. ED Course And Treatment - Laboratory Results Result Diagrams: 12/04/17 02:35 12/04/17 02:35 O2 Sat by Pulse Oximetry: 99 (RA) Pulse Ox Interpretation: Normal - CT Scan/US CT Abdomen and Pelvis Other Rad Studies (CT/US): Read By Radiologist, Radiology Report Reviewed CT/US Interpretation: IMPRESSION: Mild uncomplicated sigmoid colitis. Medical Decision Making Medical Decision Making: Advised of risks of CT imaging, patient agreeable to undergo test. Plan: CT Abdomen and Pelvis CMP Lipase CBC Urinalysis Discharged home, f/u PMD, return to ED for worsening pain, fever, vomiting, or any other problem. Disposition - Disposition Referrals: [facility] [Outside] Jez Castro MD [Staff Provider] - Disposition: HOME/ ROUTINE Disposition Time: 03:49 Condition: STABLE Prescriptions: Ciprofloxacin [Cipro] 500 mg PO BID #14 tab Metronidazole [Flagyl] 500 mg PO Q8 #30 tab Ondansetron ODT [Zofran ODT] 4 mg PO Q8 #12 odt Instructions: Inflammatory Bowel Disease Forms: [facility] (Tuvaluan) - Clinical Impression Clinical Impression: Colitis - Scribe Statement The provider has reviewed the documentation as recorded by the Scribe (Zack Jiang) Provider Attestation: All medical record entries made by the Scribe were at my direction and personally dictated by me. I have reviewed the chart and agree that the record accurately reflects my personal performance of the history, physical exam, medical decision making, and the department course for this patient. I have also personally directed, reviewed, and agree with the discharge instructions and disposition.
[2017-12-04 02:39] LABS: BASO % 0.5 % (0.0-2.0); EOS # 0.1 K/uL (0.0-0.7); EOS % 1.8 % (0.0-4.0); LYMPH # 2.2 K/uL (1.0-4.3); LYMPH % 44.6 % (20.0-40.0); MEAN CELL VOLUME 81.3 fL (80.0-94.0); MEAN CORPUSCULAR HEMOGLOBIN 26.5 pg (27.0-31.0); MEAN CORPUSCULAR HGB CONC 32.6 g/dL (33.0-37.0); MEAN PLATELET VOLUME 8.7 fL (7.2-11.7); MONO # 0.2 K/uL (0.0-0.8); MONO % 5.1 % (0.0-10.0); NEUT # 2.4 K/uL (1.8-7.0); NRBC % 0.1 % (0.0-2.0); RBC 4.92 Mil/uL (4.40-5.90); RED CELL DISTRIBUTION WIDTH 15.2 % (11.5-14.5); WHITE BLOOD COUNT 4.9 K/uL (4.8-10.8)
[2017-12-04 02:50] LABS: SPERM URINE OCC /hpf; URINE BILIRUBIN NEGATIVE (NEGATIVE); URINE BLOOD NEGATIVE (NEGATIVE); URINE CLARITY Clear (Clear); URINE COLOR Yellow (YELLOW); URINE GLUCOSE (UA) NORMAL (Normal); URINE LEUKOCYTE ESTERASE NEG Leu/uL (Negative); URINE PROTEIN 1+ mg/dL (NEGATIVE); URINE UROBILINOGEN NORMAL mg/dL (0.2-1.0)
[2017-12-04 02:51] LABS: ALB/GLOB RATIO 1.4 (1.0-2.1); ALBUMIN 4.1 g/dL (3.5-5.0); ALT/SGPT 30 U/L (21-72); AST/SGOT 33 U/L (17-59); BLOOD UREA NITROGEN 18 mg/dL (9-20); CALCIUM 9.5 mg/dl (8.6-10.4); GFR NON-AFRICAN AMERICAN > 60; LIPASE 92 U/L (23-300)
[2017-12-04] MEDS ORDERED: Iohexol 350mg/ml 100 ML ONE (03:05)
[2017-12-04 03:47] VITALS: BP 112/69; PULSE 66; RESP 16; TEMP 97.9; O2SAT 99
--- NOTE | 2017-12-04 11:31 | CT ---
Date of service: 12/04/2017 PROCEDURE: CT Abdomen and Pelvis with contrast HISTORY: LLQ tenderness COMPARISON: None. TECHNIQUE: Contrast dose: Omnipaque 350, 100 cc Radiation dose: Total exam DLP = 236.65 mGy-cm. This CT exam was performed using one or more of the following dose reduction techniques: Automated exposure control, adjustment of the mA and/or kV according to patient size, and/or use of iterative reconstruction technique. FINDINGS: LOWER THORAX: Unremarkable. LIVER: Unremarkable. No gross lesion or ductal dilatation. GALLBLADDER AND BILE DUCTS: Unremarkable. PANCREAS: Unremarkable. No gross lesion or ductal dilatation. SPLEEN: Unremarkable. ADRENALS: Unremarkable. No mass. KIDNEYS AND URETERS: Unremarkable. No hydronephrosis. No solid mass. VASCULATURE: Unremarkable. No aortic aneurysm. No aortic atherosclerotic calcification or mural plaque present. BOWEL: Evaluation of the gastrointestinal tract is limited due to the lack of oral contrast administration. No bowel obstruction appreciable. Small bowel appears normal caliber throughout and there is a moderate amount retained fecal material scattered throughout the large bowel with collapsed distal segment. Potential for distal large bowel thickening is not excluded and therefore segmental colitis is in question. No pericolic reaction or fluid collection is seen and there is no abscess. Clinically correlate further. Colitis is a borderline finding. APPENDIX: Appendix not identified. No CT pattern to suggest indicate appendicitis. The patient may be status post appendectomy. PERITONEUM: Unremarkable. No free fluid. No free air. LYMPH NODES: Unremarkable. No enlarged lymph nodes. BLADDER: Unremarkable. REPRODUCTIVE: Unremarkable. BONES: No acute fracture. OTHER FINDINGS: None. IMPRESSION: Borderline distal segmental colitis. This segment of bowel is collapsed and there is no oral contrast, both of which limit the interpretation. Clinically correlate further. No ascites, bowel obstruction, free intra peritoneal gas or peritoneal abscess identified. Concordant preliminary report from [employer], 12/04/2017.
== END 2017-12-04 05:25 | disposition home or self-care (01) ==
LOC: C.ER 01:44
DX: K52.9 Noninfective gastroenteritis and colitis, unspecified (principal)
CPT/HCPCS: 74177; 80053; 81001; 83690; 85025; 99284; Q9967

== ENCOUNTER 2017-12-04 23:01 | Emergency (ER) | payer MEDICARE ==
[2017-12-04 23:02] VITALS: BMI 21.9
--- NOTE | 2017-12-04 23:18 | C.PDOC ---
History Of Present Illness 32 year old male presents to the emergency department with complaints of hearing voices. Patient denies suicidal/homicidal ideation. Patient was seen earlier in the day for abdominal pain with a negative workup, and was discharged. Patient was seen the day before for a similar complaint. Time Seen by Provider: 12/04/17 23:17 Chief Complaint (Nursing): Psychiatric Evaluation History Per: Patient History/Exam Limitations: no limitations Onset/Duration Of Symptoms: Hrs Current Symptoms Are (Timing): Still Present Suicide/Self Injury Attempted (Context): None Associated Symptoms: denies: Suicidal Thoughts, Suicidal Plan, Other (homicidal ideation) Past Medical History Reviewed: Historical Data, Nursing Documentation, Vital Signs Vital Signs: Last Vital Signs Temp 98.8 F 12/04/17 23:09 Pulse 95 H 12/04/17 23:09 Resp 18 12/04/17 23:09 BP 133/90 12/04/17 23:09 Pulse Ox 99 12/04/17 23:09 - Medical History PMH: HTN, Hyperlipidemia, Migraine, Schizophrenia Denies: HIV, Chronic Kidney Disease, Sexually Transmitted Disease Surgical History: Appendectomy (2014) - [employer] Procedures GROUP PSYCHOTHERAPY (12/06/15) INDIVIDUAL PSYCHOTHERAPY, BEHAVIORAL (12/06/15) TETANUS TOXOID ADMINIST (09/18/14) Family History: States: No Known Family Hx - Social History Hx Tobacco Use: Yes Hx Alcohol Use: No Hx Substance Use: Yes - Immunization History Hx Tetanus Toxoid Vaccination: Yes Hx Influenza Vaccination: No Hx Pneumococcal Vaccination: No Review Of Systems Psych: Positive for: Psychosis (auditory hallucinations). Negative for: Suicidal ideation Physical Exam - Physical Exam Appears: Non-toxic, No Acute Distress Skin: Warm, Dry Head: Normacephalic Eye(s): bilateral: Normal Inspection, PERRL, EOMI Ear(s): Bilateral: Normal Oral Mucosa: Moist Neck: Trachea Midline, Supple Chest: Symmetrical, No Tenderness Cardiovascular: Rhythm Regular, No Murmur Respiratory: No Rales, No Rhonchi, No Wheezing Neurological/Psych: Oriented x3, Normal Speech, Normal Cognition ED Course And Treatment - Laboratory Results Result Diagrams: 12/04/17 23:39 12/04/17 23:39 O2 Sat by Pulse Oximetry: 99 (RA) Pulse Ox Interpretation: Normal Progress Note: Pt was medically cleared for discharge by dr Lynch., Will follow up at [facility] Reevaluation Time: 05:29 Reassessment Condition: Improved Disposition Counseled Patient/Family Regarding: Studies Performed, Diagnosis, Need For Followup - Disposition Disposition: HOME/ ROUTINE Disposition Time: 23:18 Condition: FAIR Additional Instructions: Please follow up with [facility] as instructed Instructions: Schizophrenia (DC) Forms: [employer] (British) - Clinical Impression Clinical Impression: Schizophrenia - Scribe Statement The provider has reviewed the documentation as recorded by the Scribe (Zack Jiang) Provider Attestation: All medical record entries made by the Scribe were at my direction and personally dictated by me. I have reviewed the chart and agree that the record accurately reflects my personal performance of the history, physical exam, medical decision making, and the department course for this patient. I have also personally directed, reviewed, and agree with the discharge instructions and di sposition.
[2017-12-04 23:43] LABS: BASO % 0.7 % (0.0-2.0); EOS # 0.1 K/uL (0.0-0.7); EOS % 1.8 % (0.0-4.0); HEMOGLOBIN 12.6 g/dL (12.0-18.0); LYMPH # 2.3 K/uL (1.0-4.3); LYMPH % 52.1 % (20.0-40.0); MEAN CELL VOLUME 80.8 fL (80.0-94.0); MEAN CORPUSCULAR HEMOGLOBIN 26.5 pg (27.0-31.0); MEAN CORPUSCULAR HGB CONC 32.8 g/dL (33.0-37.0); MEAN PLATELET VOLUME 8.8 fL (7.2-11.7); MONO # 0.2 K/uL (0.0-0.8); MONO % 5.7 % (0.0-10.0); NEUT # 1.7 K/uL (1.8-7.0); NEUT % 39.7 % (50.0-75.0); RBC 4.77 Mil/uL (4.40-5.90); RED CELL DISTRIBUTION WIDTH 14.9 % (11.5-14.5); WHITE BLOOD COUNT 4.3 K/uL (4.8-10.8)
[2017-12-04 23:57] LABS: ALB/GLOB RATIO 1.5 (1.0-2.1); ALBUMIN 4.2 g/dL (3.5-5.0); ALT/SGPT 30 U/L (21-72); AST/SGOT 34 U/L (17-59); BLOOD UREA NITROGEN 17 mg/dL (9-20); CALCIUM 9.6 mg/dl (8.6-10.4); GFR NON-AFRICAN AMERICAN > 60
[2017-12-05] MEDS ORDERED: Potassium Chloride 10 mEq ER Tab PO STA (00:09)
[2017-12-05] MEDS ORDERED: Potassium Chloride 20 mEq ER Tab PO ONE (00:19)
[2017-12-05] MEDS ORDERED: Dexamethasone 4 mg/1 ml ONE (00:51)
[2017-12-05 01:57] LABS: URINE BILIRUBIN NEGATIVE (NEGATIVE); URINE BLOOD NEGATIVE (NEGATIVE); URINE CLARITY Clear (Clear); URINE COLOR Yellow (YELLOW); URINE GLUCOSE (UA) NORMAL (Normal); URINE LEUKOCYTE ESTERASE NEG Leu/uL (Negative); URINE PROTEIN NEGATIVE (NEGATIVE)
[2017-12-05 02:09] LABS: BARBITURATES, UR NEGATIVE (NEGATIVE); BENZODIAZEPINES, UR NEGATIVE (NEGATIVE); OPIATES, UR NEGATIVE (NEGATIVE); PHENCYCLIDINE, UR NEGATIVE (NEGATIVE)
[2017-12-05 05:31] VITALS: BP 104/68; PULSE 62; RESP 14; TEMP 98.2; O2SAT 100
== END 2017-12-05 06:04 | disposition home or self-care (01) ==
LOC: SUPCPDRO 23:01 → C.ER 23:01
DX: F20.9 Schizophrenia, unspecified (principal)
CPT/HCPCS: 80053; 81001; 83735; 84100; 85025; 99284; G0480

== ENCOUNTER 2017-12-07 01:17 | Inpatient (IN) | payer MEDICARE ==
--- NOTE | 2017-12-07 01:25 | C.PDOC ---
History Of Present Illness Patient presents to the ER stating he has suicidal ideation. Denies physical complaints at this time. Time Seen by Provider: 12/07/17 01:25 Chief Complaint (Nursing): Psychiatric Evaluation History Per: Patient History/Exam Limitations: no limitations Onset/Duration Of Symptoms: Hrs Current Symptoms Are (Timing): Still Present Suicide/Self Injury Attempted (Context): None Modifying Factor(s): None Severity: None Pain Scale Rating Of: 0 Associated Symptoms: Suicidal Thoughts Involuntary Hold By: None Recent travel outside of the [place]: No Additional History Per: Patient Past Medical History Reviewed: Historical Data, Nursing Documentation, Vital Signs - Medical History PMH: HTN, Hyperlipidemia, Migraine, Schizophrenia Denies: Diabetes, Hepatitis, HIV, Chronic Kidney Disease, Seizures, Sexually Transmitted Disease Surgical History: Appendectomy (2014) - [facility] Procedures GROUP PSYCHOTHERAPY (12/06/15) INDIVIDUAL PSYCHOTHERAPY, BEHAVIORAL (12/06/15) TETANUS TOXOID ADMINIST (09/18/14) Family History: States: No Known Family Hx - Social History Hx Tobacco Use: Yes Hx Alcohol Use: No Hx Substance Use: Yes - Immunization History Hx Tetanus Toxoid Vaccination: Yes Hx Influenza Vaccination: No Hx Pneumococcal Vaccination: No Review Of Systems Constitutional: Negative for: Fever, Chills Cardiovascular: Negative for: Chest Pain, Palpitations Respiratory: Negative for: Cough, Shortness of Breath Gastrointestinal: Negative for: Nausea, Vomiting Neurological: Negative for: Weakness, Numbness Psych: Positive for: Suicidal ideation Physical Exam - Physical Exam Appears: Non-toxic Skin: Warm, Dry Head: Normacephalic Oral Mucosa: Moist Neck: Supple Chest: Symmetrical, No Tenderness Cardiovascular: Rhythm Regular Respiratory: No Rales, No Rhonchi, No Wheezing Gastrointestinal/Abdominal: Soft, No Tenderness Back: Normal Inspection Extremity: Normal ROM Extremity: Bilateral: Atraumatic Neurological/Psych: Oriented x3 Gait: Steady ED Course And Treatment - Laboratory Results Result Diagrams: 12/07/17 01:41 12/07/17 01:41 Progress Note: Blood work and urinalysis ordered. Crisis notified. Disposition Discussed With : Tanner Oakes Comment: accepted the pt on his service and took over the care at 3:32 AM Doctor Will See Patient In The: Hospital Counseled Patient/Family Regarding: Studies Performed, Diagnosis - Disposition Referrals: Non [facility] Provider, [Primary Care Provider] - Disposition: HOSPITALIZED Disposition Time: :25 Condition: FAIR Forms: [facility] (Bengali) - POA Present On Arrival: None - Clinical Impression Clinical Impression: Major depression - Scribe Statement The provider has reviewed the documentation as recorded by the Scribe Jonathan Lopez All medical record entries made by the Scribe were at my direction and personally dictated by me. I have reviewed the chart and agree that the record accurately reflects my personal performance of the history, physical exam, medical decision making, and the department course for this patient. I have also personally directed, reviewed, and agree with the discharge instructions and disposition. Decision To Admit - Pt Status Changed To: Hospital Disposition Of: Inpatient - Admit Certification Admit to Inpatient:: After my assessment, the patient will require hospitalization for at least two midnights. This is because of the severity of symptoms shown, intensity of services needed, and/or the medical risk in this patient being treated as an outpatient. - InPatient: Physician Admission Certification: I certify that this patient requires 2 or more midnights of care for the following reason:: After my assessment, the patient will require hospitalization for at least two midnights. This is because of the severity of symptoms shown, intensity of services needed, and/or the medical risk in this patient being treated as an outpatient. - . Bed Request Type: Psychiatry Admitting Physician: Tanner Oakes Patient Diagnosis: Major depression
[2017-12-07 01:26] VITALS: BMI 20.3
[2017-12-07 01:45] LABS: BASO % 0.7 % (0.0-2.0); EOS # 0.1 K/uL (0.0-0.7); EOS % 2.2 % (0.0-4.0); HEMOGLOBIN 13.4 g/dL (12.0-18.0); LYMPH # 2.8 K/uL (1.0-4.3); LYMPH % 54.2 % (20.0-40.0); MEAN CELL VOLUME 81.3 fL (80.0-94.0); MEAN CORPUSCULAR HEMOGLOBIN 26.4 pg (27.0-31.0); MEAN CORPUSCULAR HGB CONC 32.4 g/dL (33.0-37.0); MEAN PLATELET VOLUME 8.7 fL (7.2-11.7); MONO # 0.3 K/uL (0.0-0.8); MONO % 5.1 % (0.0-10.0); NEUT # 1.9 K/uL (1.8-7.0); NEUT % 37.8 % (50.0-75.0); NRBC % 0.1 % (0.0-2.0); RBC 5.07 Mil/uL (4.40-5.90); RED CELL DISTRIBUTION WIDTH 15.3 % (11.5-14.5); WHITE BLOOD COUNT 5.1 K/uL (4.8-10.8)
[2017-12-07 02:05] LABS: ALB/GLOB RATIO 1.4 (1.0-2.1); ALBUMIN 4.2 g/dL (3.5-5.0); ALT/SGPT 21 U/L (21-72); AST/SGOT 28 U/L (17-59); BLOOD UREA NITROGEN 18 mg/dL (9-20); CALCIUM 9.3 mg/dl (8.6-10.4); GFR NON-AFRICAN AMERICAN > 60
[2017-12-07 03:27] LABS: URINE BILIRUBIN NEGATIVE (NEGATIVE); URINE BLOOD NEGATIVE (NEGATIVE); URINE CLARITY Clear (Clear); URINE COLOR Yellow (YELLOW); URINE GLUCOSE (UA) NORMAL (Normal); URINE LEUKOCYTE ESTERASE NEG Leu/uL (Negative); URINE PROTEIN NEGATIVE (NEGATIVE); URINE UROBILINOGEN NORMAL mg/dL (0.2-1.0)
[2017-12-07 03:42] LABS: BARBITURATES, UR NEGATIVE (NEGATIVE); BENZODIAZEPINES, UR NEGATIVE (NEGATIVE); OPIATES, UR NEGATIVE (NEGATIVE); PHENCYCLIDINE, UR NEGATIVE (NEGATIVE)
--- NOTE | 2017-12-07 04:26 | PCM.BM ---
<Francesco Dia - Last Filed: 12/07/17 04:23> Treatment Plan Problems - Problems identified on initial assessmt DEPRESSION Date Initiated: 12/07/17 Time Initiated: 04:00 Assessment reference: NA Status: Active SUICIDAL IDEATION Date Initiated: 12/07/17 Time Initiated: 04:00 Assessment reference: NA Status: Active Treatment assets and liabiliti Patient Assests: adapts well, cooperative, educated, self-reliant, ADL independent, physically healthy, negotiates basic needs Patient Liabilities: live alone, financial problems, poor support system - Milieu Protocol Maintain good personal hygiene: daily Encourage regular showers, daily Remind patient to perform daily oral care, daily Assist patient to perform ADL's Maintain personal safety: every shift Educate patient to report safety concerns to staff, every shift Monitor environment for contraband/sharps Medication safety: Monitor for expected outcome, potential side effects: every shift, Assess barriers to learning: every shift, Assess readiness for medication education: every shift <Tanner Oakes - Last Filed: 12/08/17 11:07> - Diagnosis (1) Schizophrenia Status: Acute Interventions: 12/08/17 11:07 * Assess/adjust medications daily and /or as needed * See patient on an individual basis 7x/week to assess status of hallucinations * Discuss risks, benefits, side effects and alternatives of medications * <Gabbi Serra - Last Filed: 12/08/17 15:37> Family Contact Family involvement: Patient does not wish Family/SO involvement Family contact: Patient declines to allow family contact at present - Goals for Treatment Patient goals for treatment: "I want to go to [facility] outpatient program."
--- NOTE | 2017-12-08 00:09 | PCM.PSYCH ---
Initial Psychiatric Evaluation - Initial Psychiatric Evaluation Type of Admission: Voluntary Legal Status: Capacity Chief Complaint (in patient's own words): I was feeling depressed and suicidal.' History of Present Illness and Precipitating Events: This is a 32 yr old male with a previous medical history of depression and schizophrenia and daily thoughts of suicide for the past month. Pt reports past history of one inpatient psychiatric hospitalizations but denies any history of follow up with any psychiatrist. Pt appeared somewhat disorganized and internally preoccupied throughout the interview. He states that he has attempted suicide in the past 10 years ago by drinking excess alcohol. He states he is here because he would like to be observed due to feeling depressed and would like to start a medical regimen. He states that since he stopped using marijuana about 1 month ago he has been having mood swings that come out of nowhere. Patient reports of depressed mood, feelings of hopelessness and helplessness, poor sleep and poor appetite. He denies any manic symptoms. He denies any auditory or visual hallucinations. Social hx:Patient is currently homeless and on disability, but will be moving in with his uncle shortly and is eating well but says his food choices have been poor lately. He has a long history of marijuana use that began when he was in his 20's and states that he used to smoke a lot every day (quantity unknown) up until about 1 month ago when he stopped. Medical hx: Schizophrenia, depression Allergies: Tomatoes: Angioedema Surgery: Appendectomy Hospitalizations: Psychiatric admissions 3x previously for similar reasons Family Hx: denies Medications: none Current Medications: Active Medications Generic Name Dose Route Start Last Admin Trade Name Freq PRN Reason Stop Dose Admin Influenza Virus Vaccine 60 mcg 12/09/17 10:00 Fluzone Quad [id number] IM 12/09/17 10:01 .ONCE ONE Pneumococcal Polyvalent Vaccine 0.5 ml 12/09/17 10:30 Pneumovax 23 Vaccine IM 12/09/17 10:31 .ONCE ONE Past Psychiatric History - Past Psychiatric History Previous Treatment History: Inpatient Pertinent Medical Hx (Current Medical&Sleep Prob, Allergies): Allergies Allergy/AdvReac Type Severity Reaction Status Date / Time tomato Allergy SWELLING Verified 12/07/17 01:24 No Known Home Med 12/04/17 Review of Systems - Review of Systems All systems: reviewed and no additional remarkable complaints except - Psychiatric Psychiatric: Anxiety, Irritability, Suicidal Ideation Mental Status Examination - Personal Presentation Personal Presentation: Looks stated age - Affect Affect: Constricted, Depressed - Motor Activity Motor Activity: Calm - Reliability in Providing Information Reliability in Providing Information: Fair - Speech Speech: Disorganized - Mood Mood: Depressed, Anxious - Formal Thought Process Formal Thought Process: Delusions, Paranoia - Obsessions/Compulsions Obsessions: No Compulsions: No - Cognitive Functions Orientation: Person, Place, Situation, Time Sensorium: Alert Attention/Concentration: Attentive Abstract Thinking: [place] Estimate of Intelligence: Below average Judgement: Imparied, as evidence by: Poor judgement, Imparied, as evidence by: Lack of insight into illness - Risk Risk: Suicidal, Diminished functioning - Limitations Limitations: Living alone DSM 5 DX - DSM 5 DSM 5 Diagnosis: Schizoaffective disorder depressive type Cannabis use disorder moderate Alcohol use disorder moderate - Recommended/Plan of Treatment Treatment Recommendations and Plan of Treatment: Schizoaffective disorder depressive type Cannabis use disorder moderate Alcohol use disorder moderate CBT Psychoeducation Supportive therapy therapy Trazodone 50 mg by mouth daily at bedtime Zoloft 50 mg PO Daily Hydroxyzine 25 mg PO every 6 hours when necessary Olanzapine 5 mg daily - Smoking Cessation Smoking Cessation Initiated: No
--- NOTE | 2017-12-08 11:05 | PCM.PYCHPN ---
Psychiatric Progress Note - Psychiatric Progress Note Patient seen today, length of contact: 15 min Patient Chief Complaint: I was feeling depressed and suicidal.' Problems Identified/Issues Discussed: Patient seen and evaluated, chart reviewed and discussed with the nurse. Patient remained isolated, confined and withdrawn. He still reports of hearing voices. Patient still appears paranoid and delusional. He reports depressed mood and feelings of hopelessness and helplessness. He is taking medication and denies any side effects. Symptoms are improving but needs more time for stabilization. Supportive therapy and psychoeducation were given. Medication Change: Yes Medical Record Reviewed: Yes Mental Status Examination - Cognitive Function Orientation: Person, Place, Situation, Time Memory: Intact Attention: WNL Concentration: Poor Association: WNL Fund of Knowledge: Poor - Mood Mood: Depressed, Anxious - Affect Affect: Constricted, Depressed - Speech Speech: Soft - Formal Thought Process Formal Thought Process: Delusions, Paranoia - Suicidal Ideation Suicidal Ideation: No - Homicidal Ideation Homicidal Ideation: No Goal/Treatment Plan - Goal/Treatment Plan Need for Continued Stay: Severe depression anxiety, Severe functional impairment Progress Toward Problem(s) and Goals/Treatment Plan: Schizoaffective disorder depressive type Cannabis use disorder moderate Alcohol use disorder moderate CBT Psychoeducation Supportive therapy therapy Trazodone 50 mg by mouth daily at bedtime Zoloft 50 mg PO Daily Hydroxyzine 25 mg PO every 6 hours when necessary Olanzapine 5 mg daily - Smoking Cessation Smoking Cessation Initiated: No
[2017-12-09] MEDS ORDERED: Influenza Vaccine 60 MCG/0.5 ML SYR (3 yr & up) IM ONE (10:00)
[2017-12-09] MEDS ORDERED: Pneumococcal 23-Valent Vaccine IM ONE (10:30)
--- NOTE | 2017-12-09 10:42 | PCM.PYCHPN ---
Psychiatric Progress Note - Psychiatric Progress Note Patient seen today, length of contact: 15 min Patient Chief Complaint: I m doing fine and I want to go home now.' Problems Identified/Issues Discussed: Patient seen and evaluated, chart reviewed and discussed with the nurse. As per staff patient remained disorganized and internally. He was found responding to internal stimuli and he was found talking to himself. He was also found at times kicking and punching in the air. Patient remained isolated, confined and withdrawn. He still reports of hearing voices. Patient still appears paranoid and delusional. He stopped taking medication, saying he does not need any medications. Supportive therapy and psychoeducation were given. Medication Change: Yes Medical Record Reviewed: Yes Mental Status Examination - Cognitive Function Orientation: Person, Place, Situation, Time Memory: Intact Attention: WNL Concentration: Poor Association: WNL Fund of Knowledge: Poor - Mood Mood: Depressed, Anxious - Affect Affect: Constricted, Depressed - Speech Speech: Soft - Formal Thought Process Formal Thought Process: Delusions, Paranoia - Suicidal Ideation Suicidal Ideation: No - Homicidal Ideation Homicidal Ideation: No Goal/Treatment Plan - Goal/Treatment Plan Need for Continued Stay: Severe depression anxiety, Severe functional impairment Progress Toward Problem(s) and Goals/Treatment Plan: Schizoaffective disorder depressive type Cannabis use disorder moderate Alcohol use disorder moderate CBT Psychoeducation Supportive therapy therapy Trazodone 50 mg by mouth daily at bedtime Zoloft 50 mg PO Daily Hydroxyzine 25 mg PO every 6 hours when necessary DC Olanzapine 5 mg daily Risperdal 1 mg by mouth BID - Smoking Cessation Smoking Cessation Initiated: No
[2017-12-09 18:53] VITALS: O2SAT 97
[2017-12-10 06:50] VITALS: BP 120/78; PULSE 63; RESP 20; TEMP 98.3
--- NOTE | 2017-12-10 10:33 | PCM.PYCHDC ---
Mental Status Examination - Mental Status Examination Orientation: Person, Place, Situation, Time Memory: Intact Mood: Neutral Affect: Constricted Speech: Soft Attention: WNL Concentration: WNL Association: WNL Fund of Knowledge: WNL Formal Thought Process: No Impairment Description of patient's judgement and insight: good, fair Psychotic Thoughts and Behaviors: denies any AVH Suicidal Ideation: No Current Homicidal Ideation?: No Discharge Summary - Discharge Note Reason for Hospitalization: This is a 32 yr old male with a previous medical history of depression and schizophrenia and daily thoughts of suicide for the past month. Pt reports past history of one inpatient psychiatric hospitalizations but denies any history of follow up with any psychiatrist. Pt appeared somewhat disorganized and internally preoccupied throughout the interview. He states that he has attempted suicide in the past 10 years ago by drinking excess alcohol. He states he is here because he would like to be observed due to feeling depressed and would like to start a medical regimen. He states that since he stopped using marijuana about 1 month ago he has been having mood swings that come out of nowhere. Patient reports of depressed mood, feelings of hopelessness and helplessness, poor sleep and poor appetite. He denies any manic symptoms. He denies any auditory or visual hallucinations. Social hx:Patient is currently homeless and on disability, but will be moving in with his uncle shortly and is eating well but says his food choices have been poor lately. He has a long history of marijuana use that began when he was in his 20's and states that he used to smoke a lot every day (quantity unknown) up until about 1 month ago when he stopped. Consultations:: List each consultation separately and include: 1. Reason for request. 2. Findings. 3. Follow-up Summary of Hospital Course include:: 1. Description of specific treatment plan utilized for patients during their course of treatmen. 2. Summarize the time- course for resolution of acute symptoms and/or regressed behaviors. 3. Describe issues identified and worked on during hospitalization. 4. Describe medication utilized. 5. Describe medical problems identified and treated. 6. Reassessment of suicide risk Summary of Hospital Course: This is a 32 yr old male with a previous medical history of depression and schizophrenia and daily thoughts of suicide for the past month. Pt reports past history of one inpatient psychiatric hospitalizations but denies any history of follow up with any psychiatrist. Pt appeared somewhat disorganized and internally preoccupied throughout the interview. He states that he has attempted suicide in the past 10 years ago by drinking excess alcohol. He states he is here because he would like to be observed due to feeling depressed and would like to start a medical regimen. He states that since he stopped using marijuana about 1 month ago he has been having mood swings that come out of nowhere. Patient reports of depressed mood, feelings of hopelessness and helplessness, poor sleep and poor appetite. He denies any manic symptoms. He denies any auditory or visual hallucinations. Social hx:Patient is currently homeless and on disability, but will be moving in with his uncle shortly and is eating well but says his food choices have been poor lately. He has a long history of marijuana use that began when he was in his 20's and states that he used to smoke a lot every day (quantity unknown) up until about 1 month ago when he stopped. Medical hx: Schizophrenia, depression Allergies: Tomatoes: Angioedema Surgery: Appendectomy Hospitalizations: Psychiatric admissions 3x previously for similar reasons Family Hx: denies Medications: none - Diagnosis (1) Schizophrenia Current Visit: No Status: Acute - Final Diagnosis (DSM 5) Condition upon Discharge: FAIR DSM 5: Schizoaffective disorder depressive type Cannabis use disorder moderate Alcohol use disorder moderate Disposition: AGAINST MEDICAL ADVICE Follow-up Treatment Plan: Schizoaffective disorder depressive type Cannabis use disorder moderate Alcohol use disorder moderate CBT Psychoeducation Supportive therapy therapy Trazodone 50 mg by mouth daily at bedtime Zoloft 50 mg PO Daily Hydroxyzine 25 mg PO every 6 hours when necessary DC Olanzapine 5 mg daily Risperdal 1 mg by mouth BID - Smoking Cessation Smoking Cessation Medication prescribed: No - Antipsychotic Medications Pt discharged on 2 or more routine antipsychotic medications: No
== END 2017-12-10 12:02 | disposition left against medical advice (07) | DRG 885 ==
LOC: C.ER 01:17 → SUPCPDRO 01:17 → C.5E 03:31
PROVIDERS: ADMIT Psychiatry & Neurology Psychiatry; ATTEND Psychiatry & Neurology Psychiatry
PROC: GZHZZZZ Group Psychotherapy (ICD-10-PCS; principal; 2017-12-07)
PROC: HZ52ZZZ Individual Psychotherapy for Substance Abuse Treatment, Cognitive-Behavioral (ICD-10-PCS; 2017-12-07)
PROC: HZ59ZZZ Individual Psychotherapy for Substance Abuse Treatment, Supportive (ICD-10-PCS; 2017-12-07)
PROC: HZ56ZZZ Individual Psychotherapy for Substance Abuse Treatment, Psychoeducation (ICD-10-PCS; 2017-12-07)
PROC: HZ42ZZZ Group Counseling for Substance Abuse Treatment, Cognitive-Behavioral (ICD-10-PCS; 2017-12-07)
PROC: HZ46ZZZ Group Counseling for Substance Abuse Treatment, Psychoeducation (ICD-10-PCS; 2017-12-07)
PROC: GZ58ZZZ Individual Psychotherapy, Cognitive-Behavioral (ICD-10-PCS; 2017-12-07)
PROC: GZ56ZZZ Individual Psychotherapy, Supportive (ICD-10-PCS; 2017-12-07)
DX: F25.1 Schizoaffective disorder, depressive type (principal); R45.851 Suicidal ideations; F10.20 Alcohol dependence, uncomplicated; F12.20 Cannabis dependence, uncomplicated; Y90.0 Blood alcohol level of less than 20 mg/100 ml; I10 Essential (primary) hypertension; Z59.0 Homelessness; Z91.5 Personal history of self-harm; Z87.891 Personal history of nicotine dependence; E78.5 Hyperlipidemia, unspecified; F41.8 Other specified anxiety disorders

== ENCOUNTER 2017-12-16 00:46 | Emergency (ER) | payer MEDICARE ==
[2017-12-16 00:56] VITALS: BMI 21.1
--- NOTE | 2017-12-16 01:09 | C.PDOC ---
History Of Present Illness 32 year old male presents to the ED c/o nausea and slight headache that started today [employer]. Patient reports he smoked bad marijuana prior to coming to the ED, patient states his symptoms started soon after. Patient states he did not take any medications for his symptoms. Patient denies fever, chills, vomit, diarrhea, rash, weakness, numbness, SI/HI, hallucinations. Time Seen by Provider: 12/16/17 00:53 Chief Complaint (Nursing): Medical Clearance History Per: Patient History/Exam Limitations: no limitations Onset/Duration Of Symptoms: Hrs Current Symptoms Are (Timing): Still Present Recent travel outside of the [place]: No Additional History Per: Patient Past Medical History Reviewed: Historical Data, Nursing Documentation, Vital Signs Vital Signs: Last Vital Signs Temp 97.9 F 12/16/17 00:54 Pulse 90 12/16/17 00:54 Resp 18 12/16/17 00:54 BP 125/85 12/16/17 00:54 Pulse Ox 100 12/16/17 00:54 - Medical History PMH: HTN, Hyperlipidemia, Migraine, Schizophrenia Denies: Diabetes, Hepatitis, HIV, Chronic Kidney Disease, Seizures, Sexually Transmitted Disease Surgical History: Appendectomy (2014) - [employer] Procedures GROUP COFFERDAM CONSTRUCTION SUPERVISOR FOR SUBSTANCE ABUSE TREATMENT, PSYCHOEDUCATION (12/07/17) GROUP COFFERDAM CONSTRUCTION SUPERVISOR FOR SUBSTANCE ABUSE, COGNITIVE BEHAVIORAL (12/07/17) GROUP PSYCHOTHERAPY (12/07/17) INDIV PSYCHOTHERAPY FOR SUBSTANCE ABUSE TREATMENT, SUPPORT (12/07/17) INDIV PSYCHOTHERAPY FOR SUBSTANCE ABUSE, COGNITIV BEHAVIORAL (12/07/17) INDIV PSYCHOTHERAPY FOR SUBSTANCE ABUSE, PSYCHOEDUCATION (12/07/17) INDIVIDUAL PSYCHOTHERAPY, BEHAVIORAL (12/06/15) INDIVIDUAL PSYCHOTHERAPY, COGNITIVE-BEHAVIORAL (12/07/17) INDIVIDUAL PSYCHOTHERAPY, SUPPORTIVE (12/07/17) TETANUS TOXOID ADMINIST (09/18/14) Family History: States: Unknown Family Hx - Social History Hx Tobacco Use: Yes Hx Alcohol Use: No Hx Substance Use: Yes - Immunization History Hx Tetanus Toxoid Vaccination: Yes Hx Influenza Vaccination: No Hx Pneumococcal Vaccination: No Review Of Systems Constitutional: Negative for: Fever, Chills Eyes: Negative for: Vision Change Cardiovascular: Negative for: Chest Pain Respiratory: Negative for: Shortness of Breath Gastrointestinal: Positive for: Nausea. Negative for: Vomiting, Abdominal Pain, Diarrhea Skin: Negative for: Rash Neurological: Positive for: Headache. Negative for: Weakness, Numbness, Dizzine ss Physical Exam - Physical Exam Appears: Non-toxic, No Acute Distress Skin: Normal Color, Warm, Dry Head: Atraumatic, Normacephalic Eye(s): bilateral: Normal Inspection, PERRL, EOMI Neck: Normal ROM, Supple Chest: Symmetrical Cardiovascular: Rhythm Regular Respiratory: Normal Breath Sounds, No Rales, No Rhonchi, No Wheezing Gastrointestinal/Abdominal: Soft, No Tenderness, No Guarding, No Rebound Extremity: Normal ROM, No Tenderness, No Swelling Neurological/Psych: Oriented x3, Normal Speech, Normal Cognition Gait: Steady ED Course And Treatment O2 Sat by Pulse Oximetry: 100 (ON RA) Pulse Ox Interpretation: Normal Medical Decision Making Medical Decision Making: Plan: * Zofran 4 mg PO Disposition Counseled Patient/Family Regarding: Diagnosis, Need For Followup - Disposition Referrals: [facility] [Outside] Disposition: HOME/ ROUTINE Disposition Time: 01:37 Condition: STABLE Additional Instructions: AL BLANK, thank you for letting us take care of you today. Your provider was Raquel Lawson MD and you were treated for MEDICAL CLEARANCE. The emergency medical care you received today was directed at your acute symptoms. If you were prescribed any medication, please fill it and take as directed. It may take several days for your symptoms to resolve. Return to the Emergency Department if your symptoms worsen, do not improve, or if you have any other problems. Please contact your doctor or call one of the physicians/clinics you have been referred to that are listed on the Patient Visit Information form that is included in your discharge packet. Bring any paperwork you were given at discharge with you along with any medications you are taking to your follow up visit. Our treatment cannot replace ongoing medical care by a primary care provider outside of the emergency department. Thank you for allowing the [facility] team to be part of your care today. I Instructions: Nausea and Vomiting, Adult (DC) Forms: [employer] (Mongolian), General Discharge Instructions - POA Present On Arrival: None - Clinical Impression Clinical Impression: Nausea - Scribe Statement The provider has reviewed the documentation as recorded by the Scribe Al Jacobs All medical record entries made by the Scribe were at my direction and personally dictated by me. I have reviewed the chart and agree that the record accurately reflects my personal performance of the history, physical exam, medical decision making, and the department course for this patient. I have also personally directed, reviewed, and agree with the discharge instructions and disposition.
[2017-12-16 01:47] VITALS: BP 133/77; PULSE 77; RESP 22; TEMP 98.2; O2SAT 98
== END 2017-12-16 01:48 | disposition home or self-care (01) ==
LOC: C.ER 00:46
DX: R11.0 Nausea (principal); E78.5 Hyperlipidemia, unspecified; I10 Essential (primary) hypertension; F20.9 Schizophrenia, unspecified; Z72.0 Tobacco use

== ENCOUNTER 2017-12-19 01:01 | Emergency (ER) | payer MEDICARE ==
[2017-12-19 01:01] VITALS: BMI 20.3
[2017-12-19 01:15] VITALS: TEMP 98.5
--- NOTE | 2017-12-19 01:42 | C.PDOC ---
History Of Present Illness 32 year old male presents to the ED c/o nausea and headache for the past few weeks. Patient states he recently smoked some "bad marijuana" and still feeling the effects. Patient has multiple prior visits to the ED with similar complaints. Patient denies SI/HI, hallucinations, CP, SOB, abdominal pain, injury, fall, trauma, nausea, vomit, visual changes, dizziness, weakness, numbness. Chief Complaint (Nursing): Headache History Per: Patient History/Exam Limitations: no limitations Onset/Duration Of Symptoms: Days Current Symptoms Are (Timing): Still Present Quality: "Pain" Preceeding Symptoms: None Recent travel outside of the [place]: No Additional History Per: Patient Past Medical History Reviewed: Historical Data, Nursing Documentation, Vital Signs Vital Signs: Last Vital Signs Temp 98.5 F 12/19/17 01:12 Pulse 84 12/19/17 01:12 Resp 20 12/19/17 01:12 BP 153/76 H 12/19/17 01:12 Pulse Ox 100 12/19/17 01:12 - Medical History PMH: HTN, Hyperlipidemia, Migraine, Schizophrenia Denies: Diabetes, Hepatitis, HIV, Chronic Kidney Disease, Seizures, Sexually Transmitted Disease Surgical History: Appendectomy (2014) - [facility] Procedures GROUP BLACK ASH BURNER OPERATOR FOR SUBSTANCE ABUSE TREATMENT, PSYCHOEDUCATION (12/07/17) GROUP BLACK ASH BURNER OPERATOR FOR SUBSTANCE ABUSE, COGNITIVE BEHAVIORAL (12/07/17) GROUP PSYCHOTHERAPY (12/07/17) INDIV PSYCHOTHERAPY FOR SUBSTANCE ABUSE TREATMENT, SUPPORT (12/07/17) INDIV PSYCHOTHERAPY FOR SUBSTANCE ABUSE, COGNITIV BEHAVIORAL (12/07/17) INDIV PSYCHOTHERAPY FOR SUBSTANCE ABUSE, PSYCHOEDUCATION (12/07/17) INDIVIDUAL PSYCHOTHERAPY, BEHAVIORAL (12/06/15) INDIVIDUAL PSYCHOTHERAPY, COGNITIVE-BEHAVIORAL (12/07/17) INDIVIDUAL PSYCHOTHERAPY, SUPPORTIVE (12/07/17) TETANUS TOXOID ADMINIST (09/18/14) Family History: States: Unknown Family Hx - Social History Hx Tobacco Use: Yes Hx Alcohol Use: No Hx Substance Use: Yes - Immunization History Hx Tetanus Toxoid Vaccination: Yes Hx Influenza Vaccination: No Hx Pneumococcal Vaccination: No Review Of Systems Constitutional: Negative for: Fever, Chills Eyes: Negative for: Vision Change Cardiovascular: Negative for: Chest Pain, Palpitations Respiratory: Negative for: Cough, Shortness of Breath Gastrointestinal: Positive for: Nausea. Negative for: Vomiting, Abdominal Pain, Diarrhea Musculoskeletal: Negative for: Back Pain Neurological: Positive for: Headache. Negative for: Weakness, Numbness, Dizziness Physical Exam - Physical Exam Appears: Non-toxic, No Acute Distress Skin: Normal Color, Warm, Dry Head: Atraumatic, Normacephalic Eye(s): bilateral: Normal Inspection, PERRL, EOMI Neck: Normal ROM, Supple Chest: Symmetrical Cardiovascular: Rhythm Regular Respiratory: Normal Breath Sounds, No Rales, No Rhonchi, No Wheezing Gastrointestinal/Abdominal: Soft, No Tenderness, No Guarding, No Rebound Extremity: Bilateral: Atraumatic, Normal Color And Temperature, Normal ROM Neurological/Psych: Oriented x3, Normal Speech, Normal Cognition, Normal Motor, Normal Sensation Gait: Steady ED Course And Treatment O2 Sat by Pulse Oximetry: 100 (ON RA) Pulse Ox Interpretation: Normal Progress Note: Plan: - Zofran 4 mg PO. On re-evaluation patient feels better, alert and awake, ambulatory, no neuro deficit, no meningeal signs. Patient is stable to be d/c home with PMD follow up. Disposition - Disposition Referrals: Wilian Toribio DO [Staff Provider] - Disposition: HOME/ ROUTINE Disposition Time: 05:57 Condition: IMPROVED Additional Instructions: Follow up with your PMD within 1-2 days. Return to ED if feel worse. Prescriptions: Acetaminophen [Tylenol 325mg tab] 2 tab PO Q6 #50 tab Instructions: Headache, Adult Forms: [facility] (Pakistani) - Clinical Impression Clinical Impression: Headache - PA / MANAGER OF INFORMATION / Resident Statement / has reviewed & agrees with the documentation as recorded. - Scribe Statement The provider has reviewed the documentation as recorded by the Scribe Al Jacobs All medical record entries made by the Scribsylvester were at my direction and personally dictated by me. I have reviewed the chart and agree that the record accurately reflects my personal performance of the history, physical exam, medical decision making, and the department course for this patient. I have also personally directed, reviewed, and agree with the discharge instructions and disposition.
[2017-12-19 04:58] VITALS: BP 148/81; PULSE 81; RESP 16
[2017-12-19 06:00] VITALS: O2SAT 100
== END 2017-12-19 06:16 | disposition home or self-care (01) ==
LOC: C.ER 01:01
DX: R51 Headache (principal)

== ENCOUNTER 2017-12-25 02:10 | Emergency (ER) | payer MEDICARE ==
[2017-12-25 02:12] VITALS: BMI 20.3
--- NOTE | 2017-12-25 02:22 | C.PDOC ---
History Of Present Illness 32 year old male presents to the ED looking for a place to sleep. Patient has multiple prior visits to the ED with the same presentation. Patient denies SI/HI, hallucinations, CP, SOB, injury, fall, trauma, weakness, numbness. Chief Complaint (Nursing): Medical Clearance History Per: Patient History/Exam Limitations: no limitations Onset/Duration Of Symptoms: Days Current Symptoms Are (Timing): Still Present Reports Recently: Seen In ED (12/19/17) Recent travel outside of the [place]: No Additional History Per: Patient Past Medical History Reviewed: Historical Data, Nursing Documentation, Vital Signs - Medical History PMH: HTN, Hyperlipidemia, Migraine, Schizophrenia Denies: Diabetes, Hepatitis, HIV, Chronic Kidney Disease, Seizures, Sexually Transmitted Disease Surgical History: Appendectomy (2014) - [facility] Procedures GROUP BANBURY MIXER OPERATOR FOR SUBSTANCE ABUSE TREATMENT, PSYCHOEDUCATION (12/07/17) GROUP BANBURY MIXER OPERATOR FOR SUBSTANCE ABUSE, COGNITIVE BEHAVIORAL (12/07/17) GROUP PSYCHOTHERAPY (12/07/17) INDIV PSYCHOTHERAPY FOR SUBSTANCE ABUSE TREATMENT, SUPPORT (12/07/17) INDIV PSYCHOTHERAPY FOR SUBSTANCE ABUSE, COGNITIV BEHAVIORAL (12/07/17) INDIV PSYCHOTHERAPY FOR SUBSTANCE ABUSE, PSYCHOEDUCATION (12/07/17) INDIVIDUAL PSYCHOTHERAPY, BEHAVIORAL (12/06/15) INDIVIDUAL PSYCHOTHERAPY, COGNITIVE-BEHAVIORAL (12/07/17) INDIVIDUAL PSYCHOTHERAPY, SUPPORTIVE (12/07/17) TETANUS TOXOID ADMINIST (09/18/14) Family History: States: Unknown Family Hx - Social History Hx Tobacco Use: Yes Hx Alcohol Use: No Hx Substance Use: Yes - Immunization History Hx Tetanus Toxoid Vaccination: Yes Hx Influenza Vaccination: No Hx Pneumococcal Vaccination: No Review Of Systems Constitutional: Negative for: Fever, Chills Cardiovascular: Negative for: Chest Pain Respiratory: Negative for: Shortness of Breath Gastrointestinal: Negative for: Nausea, Vomiting, Abdominal Pain Skin: Negative for: Rash Psych: Negative for: Depression, Suicidal ideation Physical Exam - Physical Exam Appears: Non-toxic, No Acute Distress Skin: Normal Color, Warm, Dry Head: Atraumatic, Normacephalic Eye(s): bilateral: Normal Inspection Neck: Normal ROM, Supple Chest: Symmetrical Cardiovascular: Rhythm Regular Respiratory: Normal Breath Sounds, No Rales, No Rhonchi, No Wheezing Extremity: Normal ROM, No Tenderness, No Swelling Neurological/Psych: Oriented x3, Normal Speech, Normal Cognition Gait: Steady ED Course And Treatment O2 Sat by Pulse Oximetry: 99 (ON RA) Pulse Ox Interpretation: Normal Progress Note: Patient was ambulating in the ED without difficulty, stable for D/C. Disposition - Disposition Referrals: Wilian Toribio DO [Staff Provider] - Disposition: HOME/ ROUTINE Disposition Time: 02:20 Condition: STABLE Additional Instructions: Please follow up with PMD Se[facility] Return to ER if any medical emergencies Forms: [facility] (Yakut), General Discharge Instructions - Clinical Impression Clinical Impression: Medical assessment - PA / RURAL ROUTE MAIL CARRIER / Resident Statement / has reviewed & agrees with the documentation as recorded. - Scribe Statement The provider has reviewed the documentation as recorded by the Scribe Al Jacobs All medical record entries made by the Scribe were at my direction and personally dictated by me. I have reviewed the chart and agree that the record accurately reflects my personal performance of the history, physical exam, medical decision making, and the department course for this patient. I have also personally directed, reviewed, and agree with the discharge instructions and disposition.
[2017-12-25 02:25] VITALS: BP 165/87; PULSE 80; RESP 18; TEMP 98.6; O2SAT 99
== END 2017-12-25 02:29 | disposition home or self-care (01) ==
LOC: C.ER 02:10
DX: Z00.00 Encounter for general adult medical examination without abnormal findings (principal)

== ENCOUNTER 2018-01-25 00:40 | Emergency (ER) | payer MEDICARE ==
[2018-01-25 00:40] VITALS: BMI 20.3
--- NOTE | 2018-01-25 00:48 | C.PDOC ---
History Of Present Illness 32 year old male presents to the ED for evaluation. Contrary to triage when asked patient states he is homeless and wants a place to spend the night. Patient denies SI/ HI, hallucinations, injury, fall, trauma. Time Seen by Provider: 01/25/18 00:48 Chief Complaint (Nursing): GI Problem History Per: Patient History/Exam Limitations: no limitations Onset/Duration Of Symptoms: Days Current Symptoms Are (Timing): Gone Quality Of Discomfort: Other Associated Symptoms: denies: Nausea, Vomiting, Diarrhea, Urinary Symptoms Recent travel outside of the [place]: No Additional History Per: Patient Past Medical History Reviewed: Historical Data, Nursing Documentation, Vital Signs Vital Signs: Last Vital Signs Temp 98.1 F 01/25/18 00:45 Pulse 83 01/25/18 00:45 Resp 14 01/25/18 00:45 BP 146/98 H 01/25/18 00:45 Pulse Ox 96 01/25/18 00:45 - Medical History PMH: HTN, Hyperlipidemia, Migraine, Schizophrenia Denies: Diabetes, Hepatitis, HIV, Chronic Kidney Disease, Seizures, Sexually Transmitted Disease Surgical History: Appendectomy (2014) - [facility] Procedures GROUP ASSOCIATE MERCHANDISE PLANNER FOR SUBSTANCE ABUSE TREATMENT, PSYCHOEDUCATION (12/07/17) GROUP ASSOCIATE MERCHANDISE PLANNER FOR SUBSTANCE ABUSE, COGNITIVE BEHAVIORAL (12/07/17) GROUP PSYCHOTHERAPY (12/07/17) INDIV PSYCHOTHERAPY FOR SUBSTANCE ABUSE TREATMENT, SUPPORT (12/07/17) INDIV PSYCHOTHERAPY FOR SUBSTANCE ABUSE, COGNITIV BEHAVIORAL (12/07/17) INDIV PSYCHOTHERAPY FOR SUBSTANCE ABUSE, PSYCHOEDUCATION (12/07/17) INDIVIDUAL PSYCHOTHERAPY, BEHAVIORAL (12/06/15) INDIVIDUAL PSYCHOTHERAPY, COGNITIVE-BEHAVIORAL (12/07/17) INDIVIDUAL PSYCHOTHERAPY, SUPPORTIVE (12/07/17) TETANUS TOXOID ADMINIST (09/18/14) Family History: States: Unknown Family Hx - Social History Hx Tobacco Use: Yes Hx Alcohol Use: No Hx Substance Use: Yes - Immunization History Hx Tetanus Toxoid Vaccination: Yes Hx Influenza Vaccination: No Hx Pneumococcal Vaccination: No Review Of Systems Constitutional: Negative for: Fever, Chills Cardiovascular: Negative for: Chest Pain, Palpitations Respiratory: Negative for: Cough, Shortness of Breath Gastrointestinal: Negative for: Nausea, Vomiting, Abdominal Pain Skin: Negative for: Rash Psych: Negative for: Depression, Suicidal ideation Physical Exam - Physical Exam Appears: Non-toxic, No Acute Distress Skin: Warm, Dry Head: Normacephalic Eye(s): bilateral: Normal Inspection Neck: Supple Chest: Symmetrical Cardiovascular: Rhythm Regular Respiratory: No Rales, No Rhonchi, No Wheezing Gastrointestinal/Abdominal: Soft, No Tenderness, No Guarding, No Rebound Extremity: Bilateral: Atraumatic, Normal Color And Temperature, Normal ROM Neurological/Psych: Oriented x3, Normal Speech, Normal Cognition Gait: Steady ED Course And Treatment O2 Sat by Pulse Oximetry: 96 (ON RA) Pulse Ox Interpretation: Normal Reevaluation Time: 05:15 Reassessment Condition: Improved Disposition Counseled Patient/Family Regarding: Studies Performed, Diagnosis, Need For Followup - Disposition Disposition: HOME/ ROUTINE Disposition Time: 00:48 Condition: FAIR Forms: [facility] (Cayman Islander), General Discharge Instructions - Clinical Impression Clinical Impression: Medical assessment - Scribe Statement The provider has reviewed the documentation as recorded by the Scribe Al Jacobs All medical record entries made by the Scribe were at my direction and personally dictated by me. I have reviewed the chart and agree that the record accurately reflects my personal performance of the history, physical exam, medical decision making, and the department course for this patient. I have also personally directed, reviewed, and agree with the discharge instructions and disposition.
[2018-01-25 05:39] VITALS: BP 121/70; PULSE 80; RESP 20; TEMP 98; O2SAT 100
== END 2018-01-25 05:39 | disposition home or self-care (01) ==
LOC: C.ER 00:40
DX: Z04.89 Encounter for examination and observation for other specified reasons (principal)

== ENCOUNTER 2018-03-02 01:21 | Emergency (ER) | payer MEDICARE | END 2018-03-02 05:50 | disposition home or self-care (01) | LOC: C.ER 01:21 | DX: Z04.89 Encounter for examination and observation for other specified reasons (principal) ==

== ENCOUNTER 2018-05-09 21:55 | Emergency (ER) | payer MEDICARE ==
[2018-05-09 21:55] VITALS: BMI 20.3
--- NOTE | 2018-05-10 01:12 | C.PDOC ---
History Of Present Illness 33 year old male homeless states he has been on his feet for long hours at a time for the past few days and is requesting a place to rest. Patient notes he has been transitioning between shelters and feels fatigued. Denies SOB, fever, nausea, or vomiting. Time Seen by Provider: 05/09/18 22:58 Chief Complaint (Nursing): Medical Clearance History Per: Patient History/Exam Limitations: no limitations Onset/Duration Of Symptoms: Days Current Symptoms Are (Timing): Still Present Recent travel outside of the [place]: No Past Medical History Reviewed: Historical Data, Nursing Documentation, Vital Signs Vital Signs: Last Vital Signs Temp 98.8 F 05/09/18 22:00 Pulse 100 H 05/09/18 22:00 Resp 16 05/09/18 22:00 BP 138/80 05/09/18 22:00 Pulse Ox 97 05/09/18 22:00 - Medical History PMH: HTN, Hyperlipidemia, Migraine, Schizophrenia Denies: Diabetes, Hepatitis, HIV, Chronic Kidney Disease, Seizures, Sexually Transmitted Disease Surgical History: Appendectomy (2014) - [facility] Procedures GROUP METAL EXPEDITER FOR SUBSTANCE ABUSE TREATMENT, PSYCHOEDUCATION (12/07/17) GROUP METAL EXPEDITER FOR SUBSTANCE ABUSE, COGNITIVE BEHAVIORAL (12/07/17) GROUP PSYCHOTHERAPY (12/07/17) INDIV PSYCHOTHERAPY FOR SUBSTANCE ABUSE TREATMENT, SUPPORT (12/07/17) INDIV PSYCHOTHERAPY FOR SUBSTANCE ABUSE, COGNITIV BEHAVIORAL (12/07/17) INDIV PSYCHOTHERAPY FOR SUBSTANCE ABUSE, PSYCHOEDUCATION (12/07/17) INDIVIDUAL PSYCHOTHERAPY, BEHAVIORAL (12/06/15) INDIVIDUAL PSYCHOTHERAPY, COGNITIVE-BEHAVIORAL (12/07/17) INDIVIDUAL PSYCHOTHERAPY, SUPPORTIVE (12/07/17) TETANUS TOXOID ADMINIST (09/18/14) Family History: States: Unknown Family Hx - Social History Hx Tobacco Use: Yes Hx Alcohol Use: No (DENIED) Hx Substance Use: No - Immunization History Hx Tetanus Toxoid Vaccination: Yes Hx Influenza Vaccination: No Hx Pneumococcal Vaccination: No Review Of Systems Constitutional: Positive for: Other (Fatigued). Negative for: Fever, Chills Cardiovascular: Negative for: Chest Pain, Palpitations Respiratory: Negative for: Cough, Shortness of Breath Gastrointestinal: Negative for: Nausea, Vomiting Physical Exam - Physical Exam Appears: Non-toxic Skin: Normal Color, Warm Head: Atraumatic, Normacephalic Oral Mucosa: Moist Neck: Normal ROM, Supple Chest: Symmetrical Respiratory: No Accessory Muscle Use, Other (Normal inspiratory effort) Gastrointestinal/Abdominal: Soft, No Distention Neurological/Psych: Oriented x3, Normal Speech, Normal Cranial Nerves (Grossly intact) Gait: Steady ED Course And Treatment O2 Sat by Pulse Oximetry: 97 (Room air) Pulse Ox Interpretation: Normal Medical Decision Making Medical Decision Making: Will allow patient to rest prior to discharge. Disposition Counseled Patient/Family Regarding: Diagnosis, Need For Followup - Disposition Disposition: HOME/ ROUTINE Disposition Time: 05:19 Condition: STABLE Forms: [facility] (Portuguese), General Discharge Instructions - Clinical Impression Clinical Impression: Homeless single person - PA / COIN MACHINE COLLECTOR / Resident Statement MD/DO has reviewed & agrees with the documentation as recorded. - Scribe Statement The provider has reviewed the documentation as recorded by the Scribe Jonathan Lopez All medical record entries made by the Scribsylvester were at my direction and personally dictated by me. I have reviewed the chart and agree that the record accurately reflects my personal performance of the history, physical exam, m edical decision making, and the department course for this patient. I have also personally directed, reviewed, and agree with the discharge instructions and disposition.
[2018-05-10 05:19] VITALS: O2SAT 97
[2018-05-10 05:27] VITALS: BP 123/74; PULSE 79; RESP 18; TEMP 98
== END 2018-05-10 05:55 | disposition home or self-care (01) ==
LOC: C.ER 21:55
DX: Z59.0 Homelessness (principal); E78.5 Hyperlipidemia, unspecified; F20.9 Schizophrenia, unspecified; I10 Essential (primary) hypertension; Z72.0 Tobacco use

== ENCOUNTER 2018-05-14 00:11 | Emergency (ER) | payer MEDICARE ==
[2018-05-14 00:14] VITALS: BMI 20.3
[2018-05-14 00:31] VITALS: RESP 16; O2SAT 97
--- NOTE | 2018-05-14 02:16 | C.PDOC ---
History Of Present Illness 33 year old male presents to the ED requesting for a place to sleep. Patient reports he is tired from walking form [facility] to [facility]. Patient denies SI/HI, hallucinations, other medical complaints. Time Seen by Provider: 05/14/18 00:56 Chief Complaint (Nursing): Medical Clearance History Per: Patient History/Exam Limitations: no limitations Onset/Duration Of Symptoms: Hrs Current Symptoms Are (Timing): Still Present Recent travel outside of the [place]: No Additional History Per: Patient Past Medical History Reviewed: Historical Data, Nursing Documentation, Vital Signs Vital Signs: Last Vital Signs Temp 97.9 F 05/14/18 00:20 Pulse 87 05/14/18 00:20 Resp 16 05/14/18 00:20 BP 141/91 H 05/14/18 00:20 Pulse Ox 97 05/14/18 00:20 - Medical History PMH: HTN, Hyperlipidemia, Migraine, Schizophrenia Denies: Diabetes, Hepatitis, HIV, Chronic Kidney Disease, Seizures, Sexually Transmitted Disease Surgical History: Appendectomy (2014) - [facility] Procedures GROUP SUBASSEMBLY ASSEMBLER FOR SUBSTANCE ABUSE TREATMENT, PSYCHOEDUCATION (12/07/17) GROUP SUBASSEMBLY ASSEMBLER FOR SUBSTANCE ABUSE, COGNITIVE BEHAVIORAL (12/07/17) GROUP PSYCHOTHERAPY (12/07/17) INDIV PSYCHOTHERAPY FOR SUBSTANCE ABUSE TREATMENT, SUPPORT (12/07/17) INDIV PSYCHOTHERAPY FOR SUBSTANCE ABUSE, COGNITIV BEHAVIORAL (12/07/17) INDIV PSYCHOTHERAPY FOR SUBSTANCE ABUSE, PSYCHOEDUCATION (12/07/17) INDIVIDUAL PSYCHOTHERAPY, BEHAVIORAL (12/06/15) INDIVIDUAL PSYCHOTHERAPY, COGNITIVE-BEHAVIORAL (12/07/17) INDIVIDUAL PSYCHOTHERAPY, SUPPORTIVE (12/07/17) TETANUS TOXOID ADMINIST (09/18/14) Family History: States: Unknown Family Hx - Social History Hx Tobacco Use: Yes Hx Alcohol Use: No (DENIED) Hx Substance Use: No - Immunization History Hx Tetanus Toxoid Vaccination: Yes Hx Influenza Vaccination: No Hx Pneumococcal Vaccination: No Review Of Systems Constitutional: Negative for: Fever, Chills Cardiovascular: Negative for: Chest Pain Respiratory: Negative for: Shortness of Breath Gastrointestinal: Negative for: Nausea, Vomiting, Abdominal Pain Skin: Negative for: Rash Psych: Negative for: Depression, Suicidal ideation Physical Exam - Physical Exam Appears: Non-toxic, No Acute Distress Skin: Normal Color, Warm, Dry Head: Atraumatic, Normacephalic Eye(s): bilateral: Normal Inspection Neck: Normal ROM, Supple Chest: Symmetrical Cardiovascular: Rhythm Regular Respiratory: Normal Breath Sounds, No Rales, No Rhonchi, No Wheezing Gastrointestinal/Abdominal: Soft, No Tenderness Extremity: Normal ROM, No Tenderness, No Swelling Neurological/Psych: Oriented x3, Normal Speech, Normal Cognition Gait: Steady ED Course And Treatment O2 Sat by Pulse Oximetry: 97 (ON RA) Pulse Ox Interpretation: Normal Progress Note: Patient remained stable in the ED, in NAD. Patient stable for D/C. Disposition - Disposition Disposition: HOME/ ROUTINE Disposition Time: 05:20 Condition: STABLE Forms: General Discharge Instructions - Clinical Impression Clinical Impression: Encounter for medical assessment, Homelessness - PA / REPROGRAPHICS ASSOCIATE / Resident Statement MD/DO has reviewed & agrees with the documentation as recorded. - Scribe Statement The provider has reviewed the documentation as recorded by the Scribe Al Jacobs All medical record entries made by the Scribe were at my direction and personally dictated by me. I have reviewed the chart and agree that the record accurately reflects my personal performance of the history, physical exam, medical decision making, and the department course for this patient. I have also personally directed, reviewed, and agree with the discharge instructions and disposition.
[2018-05-14 05:25] VITALS: BP 134/82; PULSE 80; TEMP 98.1
== END 2018-05-14 05:24 | disposition home or self-care (01) ==
LOC: C.ER 00:11
DX: Z00.00 Encounter for general adult medical examination without abnormal findings (principal); Z59.0 Homelessness

== ENCOUNTER 2018-05-23 03:15 | Emergency (ER) | payer MEDICARE ==
[2018-05-23 03:15] VITALS: BMI 20.3
[2018-05-23 03:35] VITALS: O2SAT 98
--- NOTE | 2018-05-23 04:27 | C.PDOC ---
History Of Present Illness 33 year old male presents to the ED requesting for a place to spend the night. Patient reports he spent the whole day walking, now feel a little nauseous. Patient denies abdominal pain, fever, chills, headache, CP, SOB, injury, fall, trauma, weakness, numbness. Time Seen by Provider: 05/23/18 03:42 Chief Complaint (Nursing): Abdominal Pain History Per: Patient History/Exam Limitations: no limitations Onset/Duration Of Symptoms: Hrs Current Symptoms Are (Timing): Still Present Quality Of Discomfort: Unable To Describe Associated Symptoms: Nausea. denies: Vomiting, Diarrhea, Urinary Symptoms Recent travel outside of the [place]: No Additional History Per: Patient Past Medical History Reviewed: Historical Data, Nursing Documentation, Vital Signs Vital Signs: Last Vital Signs Temp 98 F 05/23/18 03:28 Pulse 83 05/23/18 03:28 Resp 16 05/23/18 03:28 BP 130/83 05/23/18 03:28 Pulse Ox 98 05/23/18 03:28 - Medical History PMH: HTN, Hyperlipidemia, Migraine, Schizophrenia Denies: Diabetes, Hepatitis, HIV, Chronic Kidney Disease, Seizures, Sexually Transmitted Disease Surgical History: Appendectomy (2014) - [facility] Procedures GROUP SUGARCANE PLANTER FOR SUBSTANCE ABUSE TREATMENT, PSYCHOEDUCATION (12/07/17) GROUP SUGARCANE PLANTER FOR SUBSTANCE ABUSE, COGNITIVE BEHAVIORAL (12/07/17) GROUP PSYCHOTHERAPY (12/07/17) INDIV PSYCHOTHERAPY FOR SUBSTANCE ABUSE TREATMENT, SUPPORT (12/07/17) INDIV PSYCHOTHERAPY FOR SUBSTANCE ABUSE, COGNITIV BEHAVIORAL (12/07/17) INDIV PSYCHOTHERAPY FOR SUBSTANCE ABUSE, PSYCHOEDUCATION (12/07/17) INDIVIDUAL PSYCHOTHERAPY, BEHAVIORAL (12/06/15) INDIVIDUAL PSYCHOTHERAPY, COGNITIVE-BEHAVIORAL (12/07/17) INDIVIDUAL PSYCHOTHERAPY, SUPPORTIVE (12/07/17) TETANUS TOXOID ADMINIST (09/18/14) Family History: States: Unknown Family Hx - Social History Hx Tobacco Use: Yes Hx Alcohol Use: No (DENIED) Hx Substance Use: No - Immunization History Hx Tetanus Toxoid Vaccination: Yes Hx Influenza Vaccination: No Hx Pneumococcal Vaccination: No Review Of Systems Constitutional: Negative for: Fever, Chills Cardiovascular: Negative for: Chest Pain, Palpitations Respiratory: Negative for: Shortness of Breath Gastrointestinal: Positive for: Nausea. Negative for: Vomiting, Abdominal Pain Genitourinary: Negative for: Dysuria Skin: Negative for: Rash Physical Exam - Physical Exam Appears: Non-toxic, No Acute Distress Skin: Normal Color, Warm, Dry Head: Atraumatic, Normacephalic Eye(s): bilateral: Normal Inspection Neck: Normal ROM, Supple Chest: Symmetrical Cardiovascular: Rhythm Regular Respiratory: Normal Breath Sounds, No Rales, No Rhonchi, No Wheezing Gastrointestinal/Abdominal: Soft, No Tenderness, No Guarding, No Rebound Extremity: Normal ROM, No Tenderness Neurological/Psych: Oriented x3, Normal Speech, Normal Cognition Gait: Steady ED Course And Treatment O2 Sat by Pulse Oximetry: 98 (ON RA) Pulse Ox Interpretation: Normal Progress Note: Patient seen ambulating in the ED, stable for D/C. Disposition Counseled Patient/Family Regarding: Diagnosis, Need For Followup, Rx Given - Disposition Disposition: HOME/ ROUTINE Disposition Time: 05:22 Condition: STABLE Forms: [facility] (Central African) - Clinical Impression Clinical Impression: Encounter for medical assessment - PA / SPECIMEN PROCESSOR / Resident Statement MD/DO has reviewed & agrees with the documentation as recorded. - Scribe Statement The provider has reviewed the documentation as recorded by the Scribe Al Jacobs All medical record entries made by the Mehrdadibsylvester were at my direction and personally dictated by me. I have reviewed the chart and agree that the record accurately reflects my personal performance of the history, physical exam, medical decision making, and the department course for this patient. I have also personally directed, reviewed, and agree with the discharge instructions and disposition.
[2018-05-23 06:18] VITALS: BP 123/78; PULSE 74; RESP 20; TEMP 97.1
== END 2018-05-23 06:17 | disposition home or self-care (01) ==
LOC: C.ER 03:15
DX: Z00.00 Encounter for general adult medical examination without abnormal findings (principal); E78.5 Hyperlipidemia, unspecified; I10 Essential (primary) hypertension; F20.9 Schizophrenia, unspecified; Z72.0 Tobacco use

== ENCOUNTER 2018-05-26 00:01 | Emergency (ER) | payer MEDICARE, OTHER ==
[2018-05-26 00:02] VITALS: BMI 20.3
--- NOTE | 2018-05-26 02:04 | C.PDOC ---
History Of Present Illness 33 year old male presents to the ED requesting for a place to sleep. Patient is homeless, states he is tired and has no place to spend the night. Patient has been seen multiple times in the ED in the past for same. Patient denies any medical complaints at this time. Time Seen by Provider: 05/26/18 00:16 Chief Complaint (Nursing): Medical Clearance History Per: Patient History/Exam Limitations: no limitations Onset/Duration Of Symptoms: Hrs Current Symptoms Are (Timing): Still Present Reports Recently: Seen In ED (05/23/18) Recent travel outside of the [place]: No Additional History Per: Patient Past Medical History Reviewed: Historical Data, Nursing Documentation, Vital Signs Vital Signs: Last Vital Signs Temp 98.8 F 05/26/18 00:08 Pulse 72 05/26/18 00:08 Resp 20 05/26/18 00:08 BP 133/92 H 05/26/18 00:08 Pulse Ox 98 05/26/18 00:08 - Medical History PMH: HTN, Hyperlipidemia, Migraine, Schizophrenia Denies: Diabetes, Hepatitis, HIV, Chronic Kidney Disease, Seizures, Sexually Transmitted Disease Surgical History: Appendectomy (2014) - [facility] Procedures GROUP PHARMACEUTICAL DEVELOPMENT TECHNICIAN FOR SUBSTANCE ABUSE TREATMENT, PSYCHOEDUCATION (12/07/17) GROUP PHARMACEUTICAL DEVELOPMENT TECHNICIAN FOR SUBSTANCE ABUSE, COGNITIVE BEHAVIORAL (12/07/17) GROUP PSYCHOTHERAPY (12/07/17) INDIV PSYCHOTHERAPY FOR SUBSTANCE ABUSE TREATMENT, SUPPORT (12/07/17) INDIV PSYCHOTHERAPY FOR SUBSTANCE ABUSE, COGNITIV BEHAVIORAL (12/07/17) INDIV PSYCHOTHERAPY FOR SUBSTANCE ABUSE, PSYCHOEDUCATION (12/07/17) INDIVIDUAL PSYCHOTHERAPY, BEHAVIORAL (12/06/15) INDIVIDUAL PSYCHOTHERAPY, COGNITIVE-BEHAVIORAL (12/07/17) INDIVIDUAL PSYCHOTHERAPY, SUPPORTIVE (12/07/17) TETANUS TOXOID ADMINIST (09/18/14) Family History: States: Unknown Family Hx - Social History Hx Tobacco Use: Yes Hx Alcohol Use: No (DENIED) Hx Substance Use: No - Immunization History Hx Tetanus Toxoid Vaccination: Yes Hx Influenza Vaccination: No Hx Pneumococcal Vaccination: No Review Of Systems Constitutional: Negative for: Fever, Chills, Weakness ENT: Negative for: Mouth Swelling Cardiovascular: Negative for: Chest Pain Respiratory: Negative for: Cough, Shortness of Breath Gastrointestinal: Negative for: Nausea, Vomiting, Diarrhea Musculoskeletal: Negative for: Back Pain Skin: Negative for: Rash Neurological: Negative for: Weakness, Numbness, Headache, Dizziness Physical Exam - Physical Exam Appears: Well, Non-toxic, No Acute Distress, Other (no obvious signs of trauma) Skin: Normal Color, Warm, No Rash Head: Atraumatic, Normacephalic Eye(s): bilateral: Normal Inspection (no scleral icterus), PERRL, EOMI Nose: Normal Neck: Normal ROM, Supple Chest: Symmetrical Respiratory: No Accessory Muscle Use, Other (normal inspiratory effort) Gastrointestinal/Abdominal: Soft Back: Other (ambulating with steady gait) Extremity: Normal ROM Neurological/Psych: Oriented x3 ED Course And Treatment O2 Sat by Pulse Oximetry: 98 (ON RA) Pulse Ox Interpretation: Normal Medical Decision Making Medical Decision Making: Patient will be allowed to sleep in the ED for a few hours and discharged in the morning. Disposition Counseled Patient/Family Regarding: Diagnosis, Need For Followup - Disposition Disposition: HOME/ ROUTINE Disposition Time: 03:00 Condition: STABLE Forms: [facility] (Italian), General Discharge Instructions - Clinical Impression Clinical Impression: Homeless single person - PA / CATALYTIC CONVERTER OPERATOR HELPER / Resident Statement MD/DO has reviewed & agrees with the documentation as recorded. - Scribe Statement The provider has reviewed the documentation as recorded by the Scribe Al Jacobs All medical record entries made by the Mehrdadibsylvester were at my direction and personally dictated by me. I have reviewed the chart and agree that the record accurately reflects my personal performance of the history, physical exam, medical decision making, and the department course for this patient. I have also personally directed, reviewed, and agree with the discharge instructions and disposition.
[2018-05-26 02:51] VITALS: BP 115/70; PULSE 73; RESP 18; TEMP 97.8; O2SAT 100
== END 2018-05-26 03:13 | disposition home or self-care (01) ==
LOC: C.ER 00:01
DX: Z59.0 Homelessness (principal)

== ENCOUNTER 2018-06-07 02:34 | Emergency (ER) | payer MEDICAID, MEDICARE, OTHER ==
[2018-06-07 02:34] VITALS: BMI 21.9
--- NOTE | 2018-06-07 03:14 | C.PDOC ---
History Of Present Illness 33 year old male presents to the ED c/o left lower dental pain. Patient reports due to pain he has been able to sleep for 3 days. Patient denies fever, chills, headache, facial swelling, nausea, vomit, injury, fall, trauma. Time Seen by Provider: 06/07/18 02:42 Chief Complaint (Nursing): Dental Pain History Per: Patient History/Exam Limitations: no limitations Onset/Duration Of Symptoms: Days (3) Current Symptoms Are (Timing): Still Present Quality: Positive for: "Pain" Recent travel outside of the [place]: No Additional History Per: Patient Past Medical History Reviewed: Historical Data, Nursing Documentation, Vital Signs Vital Signs: Last Vital Signs Temp 98.4 F 06/07/18 02:41 Pulse 100 H 06/07/18 02:41 Resp 20 06/07/18 02:41 BP 134/94 H 06/07/18 02:41 Pulse Ox 99 06/07/18 02:41 - Medical History PMH: HTN, Hyperlipidemia, Migraine, Schizophrenia Denies: Diabetes, Hepatitis, HIV, Chronic Kidney Disease, Seizures, Sexually Transmitted Disease Surgical History: Appendectomy (2014) - [facility] Procedures GROUP MANAGER TELECOM FOR SUBSTANCE ABUSE TREATMENT, PSYCHOEDUCATION (12/07/17) GROUP MANAGER TELECOM FOR SUBSTANCE ABUSE, COGNITIVE BEHAVIORAL (12/07/17) GROUP PSYCHOTHERAPY (12/07/17) INDIV PSYCHOTHERAPY FOR SUBSTANCE ABUSE TREATMENT, SUPPORT (12/07/17) INDIV PSYCHOTHERAPY FOR SUBSTANCE ABUSE, COGNITIV BEHAVIORAL (12/07/17) INDIV PSYCHOTHERAPY FOR SUBSTANCE ABUSE, PSYCHOEDUCATION (12/07/17) INDIVIDUAL PSYCHOTHERAPY, BEHAVIORAL (12/06/15) INDIVIDUAL PSYCHOTHERAPY, COGNITIVE-BEHAVIORAL (12/07/17) INDIVIDUAL PSYCHOTHERAPY, SUPPORTIVE (12/07/17) TETANUS TOXOID ADMINIST (09/18/14) Family History: States: Unknown Family Hx - Social History Hx Tobacco Use: Yes Hx Alcohol Use: No (DENIED) Hx Substance Use: No - Immunization History Hx Tetanus Toxoid Vaccination: Yes Hx Influenza Vaccination: No Hx Pneumococcal Vaccination: No Review Of Systems Constitutional: Negative for: Fever, Chills ENT: Positive for: Mouth Pain. Negative for: Mouth Swelling Cardiovascular: Negative for: Chest Pain, Palpitations Gastrointestinal: Negative for: Nausea, Vomiting Musculoskeletal: Negative for: Neck Pain Skin: Negative for: Rash Neurological: Negative for: Headache Physical Exam - Physical Exam Appears: Non-toxic, No Acute Distress Skin: Normal Color, Warm, Dry, No Rash Head: Atraumatic, Normacephalic Eye(s): bilateral: Normal Inspection, PERRL, EOMI Oral Mucosa: Moist Tongue: No Laceration Lips: No Laceration Teeth: Tender To Palpation, Other (left lower molar cracked) Gingiva: No Swelling, No Tender, No Bleeding, No Abscess Throat: Normal, No Erythema, No Exudate Neck: Normal ROM, No Midline Cervical Tenderness, Supple Chest: Symmetrical Respiratory: No Accessory Muscle Use Neurological/Psych: Oriented x3, Normal Speech, Normal Cognition Gait: Steady ED Course And Treatment O2 Sat by Pulse Oximetry: 99 (ON RA) Pulse Ox Interpretation: Normal Medical Decision Making Medical Decision Making: Plan: * Augmentin 1 tab PO * Motrin 800 mg PO Patient advised to follow up with Dentists for further evaluation. Disposition - Disposition Referrals: Wilian Toribio DO [Staff Provider] - Disposition: HOME/ ROUTINE Disposition Time: 03:40 Condition: GOOD Additional Instructions: Follow up with the medical doctor within 1-2 days, Return if worsened. Prescriptions: Amoxicillin [Amoxil 500 mg Cap] 500 mg PO TID #29 cap Ibuprofen [Motrin Tab] 800 mg PO TID #20 tab Instructions: Tooth Decay, Adult (DC) Forms: [facility] (Nepali) - Clinical Impression Clinical Impression: Dental caries - PA / RABBLER / Resident Statement / has reviewed & agrees with the documentation as recorded. - Scribe Statement The provider has reviewed the documentation as recorded by the Scribe Al Jacobs All medical record entries made by the Scribe were at my direction and personally dictated by me. I have reviewed the chart and agree that the record accurately reflects my personal performance of the history, physical exam, medical decision making, and the department course for this patient. I have also personally directed, reviewed, and agree with the discharge instructions and disposition.
[2018-06-07] MEDS ORDERED: Amoxicillin-Clav 875-125 mg Tab PO STA (03:17)
[2018-06-07] MEDS ORDERED: Amoxicillin-Clav 875-125 mg Tab PO ONE (03:36)
[2018-06-07 04:13] VITALS: BP 129/88; PULSE 81; RESP 18; TEMP 98.2
[2018-06-07 05:18] VITALS: O2SAT 99
== END 2018-06-07 04:13 | disposition home or self-care (01) ==
LOC: SUPCPDRO 02:34 → C.ER 02:34
DX: K02.9 Dental caries, unspecified (principal); I10 Essential (primary) hypertension; E78.5 Hyperlipidemia, unspecified; F20.9 Schizophrenia, unspecified; Z72.0 Tobacco use

== ENCOUNTER 2018-06-18 20:46 | Emergency (ER) | payer MEDICARE ==
[2018-06-18 20:46] VITALS: BMI 21.9
--- NOTE | 2018-06-18 21:22 | C.PDOC ---
History Of Present Illness 33 year old male with PMHx of schizophrenia presents to the ED complaining of visual and auditory hallucinations for 2 weeks. Denies any SI/HI. Pt also complains of intermittent headaches rated 5/10. Denies any use of medications. Reports he prefers to take all natural and herbal remedies with spices. Patient is requesting psychiatric evaluation. <Adriana Gonzales - Last Filed: 06/18/18 22:09> History Per: Patient History/Exam Limitations: no limitations Onset/Duration Of Symptoms: Days Current Symptoms Are (Timing): Still Present Suicide/Self Injury Attempted (Context): None Modifying Factor(s): None Associated Symptoms: denies: Suicidal Thoughts, Suicidal Plan <Adriana Gonzales - Last Filed: 06/18/18 22:09> <Solitario Adams - Last Filed: 06/18/18 23:38> Time Seen by Provider: 06/18/18 20:57 Chief Complaint (Nursing): Psychiatric Evaluation Past Medical History Reviewed: Historical Data, Nursing Documentation, Vital Signs Vital Signs: Last Vital Signs Temp 98.6 F 06/18/18 20:49 Pulse 73 06/18/18 20:49 Resp 18 06/18/18 20:49 BP 150/88 06/18/18 20:49 Pulse Ox 99 06/18/18 20:49 Primary Care Provider: Wilian Toribio - Medical History PMH: HTN, Hyperlipidemia, Migraine, Schizophrenia Denies: Diabetes, Hepatitis, HIV, Chronic Kidney Disease, Seizures, Sexually Transmitted Disease Surgical History: Appendectomy (2015) - [facility] Procedures GROUP DE ALCOHOLIZER FOR SUBSTANCE ABUSE TREATMENT, PSYCHOEDUCATION (12/07/17) GROUP DE ALCOHOLIZER FOR SUBSTANCE ABUSE, COGNITIVE BEHAVIORAL (12/07/17) GROUP PSYCHOTHERAPY (12/07/17) INDIV PSYCHOTHERAPY FOR SUBSTANCE ABUSE TREATMENT, SUPPORT (12/07/17) INDIV PSYCHOTHERAPY FOR SUBSTANCE ABUSE, COGNITIV BEHAVIORAL (12/07/17) INDIV PSYCHOTHERAPY FOR SUBSTANCE ABUSE, PSYCHOEDUCATION (12/07/17) INDIVIDUAL PSYCHOTHERAPY, BEHAVIORAL (12/06/15) INDIVIDUAL PSYCHOTHERAPY, COGNITIVE-BEHAVIORAL (12/07/17) INDIVIDUAL PSYCHOTHERAPY, SUPPORTIVE (12/07/17) TETANUS TOXOID ADMINIST (09/18/14) Family History: States: No Known Family Hx - Social History Hx Tobacco Use: Yes Hx Alcohol Use: No (DENIED) Hx Substance Use: No - Immunization History Hx Tetanus Toxoid Vaccination: Yes Hx Influenza Vaccination: No Hx Pneumococcal Vaccination: No <Adriaan Gonzales - Last Filed: 06/18/18 22:09> Vital Signs: Last Vital Signs Temp 98.6 F 06/18/18 20:49 Pulse 73 06/18/18 20:49 Resp 18 06/18/18 20:49 BP 150/88 06/18/18 20:49 Pulse Ox 99 06/18/18 22:10 - [facility] Procedures GROUP DE ALCOHOLIZER FOR SUBSTANCE ABUSE TREATMENT, PSYCHOEDUCATION (12/07/17) GROUP DE ALCOHOLIZER FOR SUBSTANCE ABUSE, COGNITIVE BEHAVIORAL (12/07/17) GROUP PSYCHOTHERAPY (12/07/17) INDIV PSYCHOTHERAPY FOR SUBSTANCE ABUSE TREATMENT, SUPPORT (12/07/17) INDIV PSYCHOTHERAPY FOR SUBSTANCE ABUSE, COGNITIV BEHAVIORAL (12/07/17) INDIV PSYCHOTHERAPY FOR SUBSTANCE ABUSE, PSYCHOEDUCATION (12/07/17) INDIVIDUAL PSYCHOTHERAPY, BEHAVIORAL (12/06/15) INDIVIDUAL PSYCHOTHERAPY, COGNITIVE-BEHAVIORAL (12/07/17) INDIVIDUAL PSYCHOTHERAPY, SUPPORTIVE (12/07/17) TETANUS TOXOID ADMINIST (09/18/14) <Solitario Adams - Last Filed: 06/18/18 23:38> Review Of Systems Constitutional: Negative for: Fever, Chills Eyes: Negative for: Vision Change Cardiovascular: Negative for: Chest Pain Respiratory: Negative for: Cough, Shortness of Breath Gastrointestinal: Negative for: Nausea, Vomiting, Abdominal Pain, Diarrhea Neurological: Positive for: Headache. Negative for: Dizziness Psych: Positive for: Other (visual and auditory hallucinations). Negative for: Suicidal ideation <Adriana Gonzales - Last Filed: 06/18/18 22:09> Physical Exam - Physical Exam Appears: Non-toxic, No Acute Distress Skin: Warm, Dry, No Rash Head: Normacephalic Eye(s): bilateral: Normal Inspection, PERRL, EOMI Nose: Normal Oral Mucosa: Moist Neck: Supple Chest: Symmetrical Cardiovascular: Rhythm Regular Respiratory: Normal Breath Sounds, No Rales, No Rhonchi, No Wheezing Gastrointestinal/Abdominal: Soft, No Tenderness Extremity: Bilateral: Atraumatic, Normal Color And Temperature, Normal ROM Neurological/Psych: Oriented x3, Normal Speech Gait: Steady <Adriana Gonzales - Last Filed: 06/18/18 22:09> ED Course And Treatment O2 Sat by Pulse Oximetry: 99 (RA) Pulse Ox Interpretation: Normal <Adriana Gonzales - Last Filed: 06/18/18 22:09> Medical Decision Making Medical Decision Making: baseline schiz/homeless signed over to this MD @ 2200 pending Crisis evaluation for baseline schizo. no SI/HI suspect malingering 0000: pt stable, comfortable, sleeping signed over to overnight MD pending Crisis eval <Solitario Adams - Last Filed: 06/18/18 23:38> Disposition Counseled Patient/Family Regarding: Diagnosis, Need For Followup - Disposition Disposition Time: 22:10 <Adriana Gonzales - Last Filed: 06/18/18 22:09> - Disposition Disposition Time: 00:00 <Solitario Adams - Last Filed: 06/18/18 23:38> - Disposition Condition: GOOD Forms: [facility] (Panamanian) - Clinical Impression Clinical Impression: Schizophrenia - PA / LOGISTICS SUPPORT / Resident Statement MD/DO has reviewed & agrees with the documentation as recorded. - Scribe Statement The provider has reviewed the documentation as recorded by the Scribe Emily Ramsey All medical record entries made by the Scribe were at my direction and per sonally dictated by me. I have reviewed the chart and agree that the record accurately reflects my personal performance of the history, physical exam, medical decision making, and the department course for this patient. I have also personally directed, reviewed, and agree with the discharge instructions and disposition. <Adriana Gonzales - Last Filed: 06/18/18 22:09> Physician Patient Turnover Patient Signed Over To: Solitario Adams (pending Crisis evaluation) <Adriana Gonzales - Last Filed: 06/18/18 22:09>
[2018-06-19 06:09] VITALS: BP 128/79; PULSE 69; RESP 15; TEMP 98.2; O2SAT 97
== END 2018-06-19 05:48 | disposition home or self-care (01) ==
LOC: C.ER 20:46
DX: F20.9 Schizophrenia, unspecified (principal); E78.5 Hyperlipidemia, unspecified; I10 Essential (primary) hypertension; Z72.0 Tobacco use

== ENCOUNTER 2018-06-21 00:41 | Emergency (ER) | payer MEDICARE ==
[2018-06-21 00:41] VITALS: BMI 21.9
[2018-06-21 01:03] VITALS: BP 124/78; PULSE 70; RESP 14; TEMP 97.9; O2SAT 98
--- NOTE | 2018-06-21 01:25 | C.PDOC ---
History Of Present Illness 33 year old male presents to the ED requesting for a place to sleep. Patient was informed that he will not be allowed to sleep in the ED, patient requests to be evaluated a dn admitted by psych. Patient was seen and evaluated 2 days ago, at that time crisis team thought no further action necessary. Patient reports crisis team told him he would be admitted to [place], when asked crisis team they deny this. As per crisis notes, patient was vague in his answers and complaint. Patient has multiple prior visits to the ED for the same presentation. Time Seen by Provider: 06/21/18 00:48 Chief Complaint (Nursing): Psychiatric Evaluation History Per: Patient History/Exam Limitations: no limitations Onset/Duration Of Symptoms: Days Current Symptoms Are (Timing): Still Present Suicide/Self Injury Attempted (Context): None Associated Symptoms: denies: Depression, Suicidal Thoughts, Suicidal Plan Recent travel outside of the [place]: No Additional History Per: Patient Past Medical History Reviewed: Historical Data, Nursing Documentation, Vital Signs Vital Signs: Last Vital Signs Temp 97.9 F 06/21/18 01:00 Pulse 70 06/21/18 01:00 Resp 14 06/21/18 01:00 BP 124/78 06/21/18 01:00 Pulse Ox 98 06/21/18 01:00 Primary Care Provider: Wilian Toribio - Medical History PMH: Hyperlipidemia, Migraine, Schizophrenia Denies: Diabetes, Hepatitis, HIV, HTN, Chronic Kidney Disease, Seizures, Sexually Transmitted Disease Surgical History: Appendectomy (2014) - [facility] Procedures GROUP PROJECT LEAD FOR SUBSTANCE ABUSE TREATMENT, PSYCHOEDUCATION (12/07/17) GROUP PROJECT LEAD FOR SUBSTANCE ABUSE, COGNITIVE BEHAVIORAL (12/07/17) GROUP PSYCHOTHERAPY (12/07/17) INDIV PSYCHOTHERAPY FOR SUBSTANCE ABUSE TREATMENT, SUPPORT (12/07/17) INDIV PSYCHOTHERAPY FOR SUBSTANCE ABUSE, COGNITIV BEHAVIORAL (12/07/17) INDIV PSYCHOTHERAPY FOR SUBSTANCE ABUSE, PSYCHOEDUCATION (12/07/17) INDIVIDUAL PSYCHOTHERAPY, BEHAVIORAL (12/06/15) INDIVIDUAL PSYCHOTHERAPY, COGNITIVE-BEHAVIORAL (12/07/17) INDIVIDUAL PSYCHOTHERAPY, SUPPORTIVE (12/07/17) TETANUS TOXOID ADMINIST (09/18/14) Family History: States: Unknown Family Hx - Social History Hx Tobacco Use: Yes Hx Alcohol Use: No (DENIED) Hx Substance Use: No - Immunization History Hx Tetanus Toxoid Vaccination: Yes Hx Influenza Vaccination: No Hx Pneumococcal Vaccination: No Review Of Systems Constitutional: Negative for: Fever, Chills, Weakness ENT: Negative for: Mouth Swelling Cardiovascular: Negative for: Chest Pain Respiratory: Negative for: Shortness of Breath Gastrointestinal: Negative for: Vomiting, Diarrhea Musculoskeletal: Negative for: Back Pain Skin: Negative for: Rash Neurological: Negative for: Weakness, Numbness, Headache Physical Exam - Physical Exam Appears: Well, Non-toxic, No Acute Distress Skin: Normal Color, Warm, Dry Head: Atraumatic, Normacephalic Eye(s): bilateral: Normal Inspection, PERRL, EOMI Neck: Normal ROM, Supple Respiratory: No Accessory Muscle Use, Other (normal inspiratory effort) Back: Other (upright steady gait) Extremity: Bilateral: Atraumatic, Normal ROM Neurological/Psych: Oriented x3, Normal Speech ED Course And Treatment O2 Sat by Pulse Oximetry: 98 (ON RA) Pulse Ox Interpretation: Normal Medical Decision Making Medical Decision Making: Patient was informed that he would not be allowed to sleep in the ED, patient has multiple prior evaluations for same. Patient states " I will be back tomorrow". Disposition Counseled Patient/Family Regarding: Diagnosis, Need For Followup - Disposition Referrals: [facility] [Outside] Disposition: HOME/ ROUTINE Disposition Time: 01:26 Condition: STABLE Forms: [facility] (Icelandic), General Discharge Instructions - Clinical Impression Clinical Impression: Homelessness, Malingering - PA / EDUCATIONAL COORDINATOR / Resident Statement MD/DO has reviewed & agrees with the documentation as recorded. - Scribe Statement The provider has reviewed the documentation as recorded by the Scribe Al Jacobs All medical record entries made by the Mehrdadibsylvester were at my direction and personally dictated by me. I have reviewed the chart and agree that the record accurately reflects my personal performance of the history, physical exam, medical decision making, and the department course for this patient. I have also personally directed, reviewed, and agree with the discharge instructions and disposition.
== END 2018-06-21 01:40 | disposition home or self-care (01) ==
LOC: C.ER 00:41
DX: Z76.5 Malingerer [conscious simulation] (principal); Z59.0 Homelessness

== ENCOUNTER 2018-07-04 00:05 | Emergency (ER) | payer MEDICAID, MEDICARE, OTHER ==
[2018-07-04 00:05] VITALS: BMI 20.7
--- NOTE | 2018-07-04 00:16 | C.PDOC ---
History Of Present Illness Patient presents to the ED requesting testing for alcohol poisoning. Patient reports he drank today, but does not usually do it. Patient has pas history of schizophrenia. Patient denies SI/HI, hallucinations, other medical complaints at this time. Chief Complaint (Nursing): Substance Abuse History Per: Patient History/Exam Limitations: no limitations Onset/Duration Of Symptoms: Hrs Current Symptoms Are (Timing): Still Present Suicide/Self Injury Attempted (Context): None Modifying Factor(s): Alcohol Associated Symptoms: denies: Depression, Suicidal Thoughts, Suicidal Plan Recent travel outside of the [place]: No Additional History Per: Patient Past Medical History Reviewed: Historical Data, Nursing Documentation, Vital Signs - Medical History PMH: Hyperlipidemia, Migraine, Schizophrenia Denies: Diabetes, Hepatitis, HIV, HTN, Kidney Stones, Chronic Kidney Disease, Seizures, Sexually Transmitted Disease Surgical History: Appendectomy (2014) - [email or web address] Procedures GROUP WAFER FAB OPERATOR FOR SUBSTANCE ABUSE TREATMENT, PSYCHOEDUCATION (12/07/17) GROUP WAFER FAB OPERATOR FOR SUBSTANCE ABUSE, COGNITIVE BEHAVIORAL (12/07/17) GROUP PSYCHOTHERAPY (06/25/18) INDIV PSYCHOTHERAPY FOR SUBSTANCE ABUSE TREATMENT, SUPPORT (12/07/17) INDIV PSYCHOTHERAPY FOR SUBSTANCE ABUSE, COGNITIV BEHAVIORAL (06/25/18) INDIV PSYCHOTHERAPY FOR SUBSTANCE ABUSE, PSYCHOEDUCATION (12/07/17) INDIVIDUAL PSYCHOTHERAPY, BEHAVIORAL (12/06/15) INDIVIDUAL PSYCHOTHERAPY, COGNITIVE-BEHAVIORAL (06/25/18) INDIVIDUAL PSYCHOTHERAPY, SUPPORTIVE (12/07/17) TETANUS TOXOID ADMINIST (09/18/14) Family History: States: Unknown Family Hx - Social History Hx Tobacco Use: Yes Hx Alcohol Use: No Hx Substance Use: No - Immunization History Hx Tetanus Toxoid Vaccination: Yes Hx Influenza Vaccination: No Hx Pneumococcal Vaccination: No Review Of Systems Constitutional: Negative for: Fever, Chills Cardiovascular: Negative for: Chest Pain Respiratory: Negative for: Shortness of Breath Gastrointestinal: Negative for: Vomiting, Abdominal Pain Skin: Negative for: Rash Psych: Negative for: Depression, Suicidal ideation Physical Exam - Physical Exam Appears: Non-toxic, No Acute Distress Skin: Warm, Dry Head: Normacephalic Eye(s): bilateral: Normal Inspection Neck: Supple Chest: Symmetrical Cardiovascular: Rhythm Regular Respiratory: No Rales, No Rhonchi, No Wheezing Gastrointestinal/Abdominal: Soft, No Tenderness Extremity: Bilateral: Atraumatic, Normal ROM Neurological/Psych: Oriented x3, Normal Speech, Normal Cognition Gait: Steady ED Course And Treatment - Laboratory Results Result Diagrams: 07/04/18 01:42 07/04/18 01:42 O2 Sat by Pulse Oximetry: 100 (ON RA) Pulse Ox Interpretation: Normal Progress Note: Plan: - Labs. - UA Reevaluation Time: 02:13 Reassessment Condition: Improved Disposition Counseled Patient/Family Regarding: Studies Performed, Diagnosis, Need For Followup - Disposition Referrals: [facility] [Outside] Disposition: HOME/ ROUTINE Disposition Time: 00:16 Condition: FAIR Forms: [facility] (Niuean), General Discharge Instructions - Clinical Impression Clinical Impression: Encounter for medical assessment - Scribe Statement The provider has reviewed the documentation as recorded by the Scribe Al Jacobs All medical record entries made by the Scribe were at my direction and personally dictated by me. I have reviewed the chart and agree that the record accurately reflects my personal performance of the history, physical exam, medical decision making, and the department course for this patient. I have also personally directed, reviewed, and agree with the discharge instructions and disposition.
[2018-07-04 00:19] VITALS: O2SAT 100
[2018-07-04 01:51] LABS: URINE BILIRUBIN NEGATIVE (NEGATIVE); URINE BLOOD NEGATIVE (NEGATIVE); URINE CLARITY Clear (Clear); URINE COLOR Yellow (YELLOW); URINE GLUCOSE (UA) NORMAL (Normal); URINE LEUKOCYTE ESTERASE NEG Leu/uL (Negative); URINE PROTEIN NEGATIVE (NEGATIVE)
[2018-07-04 01:52] LABS: BASO % 0.9 % (0.0-2.0); EOS # 0.2 K/uL (0.0-0.7); HEMOGLOBIN 12.2 g/dL (12.0-18.0); LYMPH # 2.1 K/uL (1.0-4.3); LYMPH % 46.7 % (20.0-40.0); MEAN CELL VOLUME 82.5 fL (80.0-94.0); MEAN CORPUSCULAR HEMOGLOBIN 26.8 pg (27.0-31.0); MEAN CORPUSCULAR HGB CONC 32.5 g/dL (33.0-37.0); MONO # 0.3 K/uL (0.0-0.8); MONO % 6.4 % (0.0-10.0); NEUT # 1.9 K/uL (1.8-7.0); NRBC % 0.1 % (0.0-2.0); RBC 4.58 Mil/uL (4.40-5.90); WHITE BLOOD COUNT 4.4 K/uL (4.8-10.8)
[2018-07-04 02:02] LABS: ALB/GLOB RATIO 1.3 (1.0-2.1); ALBUMIN 3.8 g/dL (3.5-5.0); ALT/SGPT 32 U/L (21-72); AST/SGOT 33 U/L (17-59); BLOOD UREA NITROGEN 17 mg/dL (9-20); CALCIUM 9.3 mg/dl (8.6-10.4); GFR NON-AFRICAN AMERICAN > 60
[2018-07-04 02:10] LABS: BARBITURATES, UR NEGATIVE (NEGATIVE); BENZODIAZEPINES, UR NEGATIVE (NEGATIVE); OPIATES, UR NEGATIVE (NEGATIVE); PHENCYCLIDINE, UR NEGATIVE (NEGATIVE)
[2018-07-04 02:36] VITALS: BP 122/77; PULSE 67; TEMP 97.8
[2018-07-04 04:00] VITALS: RESP 18
== END 2018-07-04 02:50 | disposition home or self-care (01) ==
LOC: C.ER 00:05
DX: Z00.00 Encounter for general adult medical examination without abnormal findings (principal)
CPT/HCPCS: 80053; 81001; 82948; 83735; 84100; 85025; 99285; G0480